=== PATIENT | male | born 1965 | race Caucasian/White ===

== ENCOUNTER 2018-09-28 20:02 | Emergency (ER) | payer MEDICARE ==
[2018-09-28] MEDS ORDERED: THIAMINE 200 MG/2 ML IV ONE (20:07)
[2018-09-28] MEDS ORDERED: THIAMINE 200 MG/2 ML ONE (20:13)
[2018-09-28] MEDS ORDERED: Sodium Chloride 0.9% 1000 ML 1,000 ML ONE (20:13)
[2018-09-28] MEDS ORDERED: Sodium Chloride 0.9% 1000 ML 1,000 ML IV SCH (20:15)
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
[2018-09-28 20:38] LABS: BASOPHIL % 0.6 % (0.0-0.4); Basophil (Absolute #) 0.03 (0-0.4); Eosinophil % 0.4 % (0.00-5.0); Eosinophil (Absolute #) 0.02 (0-0.5); Granulocyte Absolute (ANC) 2.67 (1.4-6.9); Granulocytes % 55.7 % (36.0-66.0); Hematocrit 49.4 % (42-50); Hemoglobin 16.7 gm/dl (12.5-18.0); Lymphocyte (Absolute #) 1.67 (1.0-4.6); Lymphocytes % 34.9 % (24.0-44.0); Mean Corpuscular Hemoglobin 33.8 pg (26-32); Mean Corpuscular Hgb Concent. 33.8 g/dl (32-36); Mean Platelet Volume 9.1 fl (6-9.5); Monocytes % 8.4 % (0.0-12.0); Platelet Count 159 K/mm3 (150-450); Red Blood Count 4.94 M/mm3 (4.1-5.6); Red Cell Distribution Width 15.9 % (11.5-14.0); White Blood Count 4.8 K/mm3 (4.0-10.5)
[2018-09-28 20:50] LABS: ALBUMIN 4.4 g/dL (3.5-5.0); ALKALINE PHOSPHATASE 95 U/L (38-126); AMYLASE 74 U/L (30-110); ANION GAP 16.8 MEQ/L (5-15); BLOOD UREA NITROGEN 7 mg/dL (9-20); CHLORIDE 105 mmol/L (98-107); Calcium 9.4 mg/dL (8.4-10.2); Carbon Dioxide 30 mmol/L (22-30); Creatinine 1 0.77 mg/dL (0.66-1.25); ETHYL ALCOHOL 287 mg/dL (0-10); Glucose 122 mg/dL (74-106); LIPASE 349 U/L (23-300); Potassium 3.4 mmol/L (3.5-5.1); SGOT/AST 120 U/L (17-59); SGPT/ALT 98 U/L (0-50); SODIUM 148 mmol/L (137-145); Total Protein 7.5 g/dL (6.3-8.2)
[2018-09-28 21:07] LABS: ACETAMINOPHEN < 10 ug/ml (10-30); SALICYLATE < 1.0 mg/dL (2-20)
[2018-09-28 22:39] VITALS: BP 158/96; PULSE 84; O2SAT 99
--- NOTE | 2018-09-29 08:39 | XRAY ---
Indication: Chest pain. Comparison: May 07, 2016. Portable chest demonstrates normal heart and lungs again with incidental left upper lobe calcified granuloma. Bony thorax intact again with mild degenerative changes. No new/acute findings.
== END 2018-09-28 22:44 | disposition home or self-care (01) ==
LOC: ED 20:02
DX: F10.920 Alcohol use, unspecified with intoxication, uncomplicated (principal); R07.9 Chest pain, unspecified; I10 Essential (primary) hypertension; I25.2 Old myocardial infarction; G47.30 Sleep apnea, unspecified; F51.5 Nightmare disorder; Z79.899 Other long term (current) drug therapy
CPT/HCPCS: 36415; 71045; 80053; 80307; 82150; 83690; 84484; 85025; 93005; 93041; 96360; 96374; 99284; G0480; G0481

== ENCOUNTER 2018-11-23 14:18 | Observation (INO) | payer MEDICARE ==
[2018-11-23] MEDS ORDERED: Sodium Chloride 0.9% 1000 ML 1,000 ML IV SCH (14:30)
[2018-11-23 14:54] LABS: BASOPHIL % 0.5 % (0.0-0.4); Basophil (Absolute #) 0.04 (0-0.4); Eosinophil % 0.9 % (0.00-5.0); Eosinophil (Absolute #) 0.08 (0-0.5); Granulocyte Absolute (ANC) 6.46 (1.4-6.9); Granulocytes % 74.6 % (36.0-66.0); Hematocrit 50.3 % (42-50); Hemoglobin 16.8 gm/dl (12.5-18.0); Lymphocyte (Absolute #) 1.64 (1.0-4.6); Lymphocytes % 18.9 % (24.0-44.0); Mean Cell Volume 100.4 fl (78-100); Mean Corpuscular Hemoglobin 33.5 pg (26-32); Mean Corpuscular Hgb Concent. 33.4 g/dl (32-36); Mean Platelet Volume 9.9 fl (6-9.5); Monocyte (Absolute #) 0.44 (0.0-1.3); Monocytes % 5.1 % (0.0-12.0); Platelet Count 167 K/mm3 (150-450); Red Blood Count 5.01 M/mm3 (4.1-5.6); Red Cell Distribution Width 14.5 % (11.5-14.0); White Blood Count 8.7 K/mm3 (4.0-10.5)
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
[2018-11-23 14:56] LABS: Lactic Acid 3.8 (0.4-2.0)
[2018-11-23] MEDS ORDERED: Sodium Chloride 0.9% 1000 ML 2,000 ML IV STA (15:02)
[2018-11-23 15:09] LABS: ALBUMIN 4.3 g/dL (3.5-5.0); BILIRUBIN,TOTAL 0.8 mg/dL (0.2-1.3); Calcium 9.3 mg/dL (8.4-10.2); Creatinine 1 1.33 mg/dL (0.66-1.25); MAGNESIUM 1.8 mg/dL (1.6-2.3); Total Protein 7.6 g/dL (6.3-8.2)
[2018-11-23] MEDS ORDERED: Sodium Chloride 0.9% 1000 ML 1,000 ML ONE (15:10)
[2018-11-23 15:15] LABS: Potassium 2.5 mmol/L (3.5-5.1)
[2018-11-23] MEDS: POTASSIUM CHLORIDE 20 mEq IN WATER 100ML 20 MEQ/100 ML BAG IV SCH ×2 (16:08→18:31)
[2018-11-23] MEDS: SODIUM CHLORIDE 0.9% W/ 40 mEq KCL 1000ML 1,000 ML IV SCH (17:54)
[2018-11-23] MEDS ORDERED: ANTIVERT 25 MG PO PRN (19:14)
[2018-11-23] MEDS ORDERED: Ativan 2 MG/1 ML VIAL IV PRN (19:34)
[2018-11-23] MEDS ORDERED: Phenergan 25 MG INJ IVIM PRN (19:34)
[2018-11-23] MEDS ORDERED: Nicoderm CQ 21 MG TOP SCH (20:00)
[2018-11-23] MEDS ORDERED: Ativan 2 MG/1 ML VIAL ONE (20:10)
[2018-11-23] MEDS: TYLENOL 325 MG PO PRN (20:13)
[2018-11-23] MEDS ORDERED: Haldol 5 MG IV ONE (20:48)
[2018-11-23] MEDS ORDERED: VALIUM 10 MG/2 ML SYRINGE IV PRN (20:48)
--- NOTE | 2018-11-23 20:49 | XRAY ---
Indication: Short of breath. Comparison: September 28, 2018. Portable chest again demonstrates normal heart and lungs with left upper lobe calcified granuloma. Bony thorax intact again with mild degenerative changes. No new/acute findings.
--- NOTE | 2018-11-23 20:51 | XRAY ---
Indication: Weakness, dizziness, and chest pain. Multiple contiguous axial images obtained through the head without contrast. Comparison: December 04, 2015. Again age-appropriate global atrophy, mild periventricular degenerative microvascular ischemia bilaterally, and old bifrontal lobe infarcts. No acute intracranial hemorrhage, hydrocephalus, or mass effect. Bony calvarium intact. Mild mucosal thickening of both maxillary sinuses. Remaining visualized paranasal sinuses and mastoid air cells are clear. 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 Comment: Preliminary interpretation was made by [facility]. No critical discrepancy. CTDI 50.87
[2018-11-23] MEDS: LOPID 600 MG PO SCH (21:45)
[2018-11-23] MEDS ORDERED: Keppra 250 MG PO SCH (22:00)
[2018-11-24 01:23] LABS: Appearance CLEAR (CLEAR); Bilirubin NEGATIVE (NEGATIVE); Blood NEGATIVE Ery/ul (0-5); Glucose NEGATIVE (NEGATIVE); Ketones NEGATIVE (NEGATIVE); Leukocyte Esterase NEGATIVE (NEGATIVE); Nitrite NEGATIVE (NEGATIVE); Protein,Urine Dip NEGATIVE (Negative); RBC 0-2 /HPF (0-2); Specific Gravity 1.011 (1.005-1.025); Urobilinogen NEGATIVE mg/dL (0-1)
[2018-11-24 02:12] LABS: Amphetamine,Urine NEGATIVE (NEGATIVE); Barbiturate,Urine NEGATIVE (NEGATIVE); Benzodiazepine,Urine NEGATIVE (NEGATIVE); Cocaine,Urine NEGATIVE (NEGATIVE); Methadone,Urine NEGATIVE (NEGATIVE); Opiate,Urine NEGATIVE (NEGATIVE); PCP,Urine NEGATIVE (NEGATIVE); THC,Urine NEGATIVE (NEGATIVE)
[2018-11-24] MEDS: SODIUM CHLORIDE 0.9% W/ 40 mEq KCL 1000ML 1,000 ML IV SCH (02:58)
[2018-11-24 03:02] LABS: BASOPHIL % 0.3 % (0.0-0.4); Basophil (Absolute #) 0.02 (0-0.4); Eosinophil % 1.8 % (0.00-5.0); Eosinophil (Absolute #) 0.12 (0-0.5); Granulocyte Absolute (ANC) 4.48 (1.4-6.9); Granulocytes % 65.9 % (36.0-66.0); Hematocrit 44.2 % (42-50); Hemoglobin 14.8 gm/dl (12.5-18.0); Lymphocyte (Absolute #) 1.77 (1.0-4.6); Lymphocytes % 26.1 % (24.0-44.0); Mean Cell Volume 102.1 fl (78-100); Mean Corpuscular Hemoglobin 34.2 pg (26-32); Mean Corpuscular Hgb Concent. 33.5 g/dl (32-36); Mean Platelet Volume 9.4 fl (6-9.5); Monocytes % 5.9 % (0.0-12.0); Platelet Count 128 K/mm3 (150-450); Red Blood Count 4.33 M/mm3 (4.1-5.6); Red Cell Distribution Width 14.5 % (11.5-14.0); White Blood Count 6.8 K/mm3 (4.0-10.5)
[2018-11-24 03:14] LABS: ALBUMIN 3.5 g/dL (3.5-5.0); ALKALINE PHOSPHATASE 86 U/L (38-126); ANION GAP 9.3 MEQ/L (5-15); BLOOD UREA NITROGEN 17 mg/dL (9-20); CHLORIDE 99 mmol/L (98-107); Calcium 8.3 mg/dL (8.4-10.2); Carbon Dioxide 32 mmol/L (22-30); Creatinine 1 1.06 mg/dL (0.66-1.25); Glucose 97 mg/dL (74-106); Potassium 3.5 mmol/L (3.5-5.1); SGOT/AST 32 U/L (17-59); SGPT/ALT 24 U/L (0-50); SODIUM 137 mmol/L (137-145); Total Protein 6.4 g/dL (6.3-8.2)
[2018-11-24] MEDS: TYLENOL 325 MG PO PRN (04:48)
[2018-11-24] MEDS ORDERED: ETODOLAC 300 MG PO PRN (07:40)
[2018-11-24 07:45] VITALS: BP 173/99; PULSE 72; O2SAT 95
[2018-11-24] MEDS ORDERED: MEDICATION INTERVENTION PO SCH (08:00)
[2018-11-24] MEDS: LOPID 600 MG PO SCH (09:27)
[2018-11-24] MEDS ORDERED: NON-FORMULARY ITEM (Budesonide/Formoterol Fumarate [Symbicort 160-4.5 Mcg Inhaler] 10.2 GM IH SCH (10:00)
[2018-11-24] MEDS ORDERED: FOLATE 1 MG PO SCH (10:00)
[2018-11-24] MEDS ORDERED: Protonix 40MG Tablet PO SCH (10:00)
[2018-11-24] MEDS ORDERED: THERAGRAN MULTIVITAMIN PO SCH (10:00)
[2018-11-24] MEDS ORDERED: NON-FORMULARY ITEM (Losartan Potassium [Cozaar] 100 MG) PO SCH (10:00)
[2018-11-24] MEDS ORDERED: Cozaar 50 MG PO SCH (10:00)
[2018-11-24] MEDS ORDERED: NORVASC 5 MG PO SCH (10:00)
[2018-11-24] MEDS ORDERED: hydroDIURIL 25 MG PO SCH (10:00)
[2018-11-24] MEDS ORDERED: VITAMIN B-1 100 MG PO SCH (10:00)
[2018-11-24] MEDS ORDERED: Keppra 250 MG PO SCH (10:00)
[2018-11-24] MEDS ORDERED: KEPPRA 500 MG PO SCH (10:00)
[2018-11-24] MEDS ORDERED: ROCEPHIN 1 Gm-D5w 50 ml Bag** 1 G/50 ML IVPB IV SCH (10:00)
== END 2018-11-24 10:33 | disposition home or self-care (01) ==
LOC: ED 14:18 → MED SURG 16:27 → OBSVTOIN 16:27 → INTOOBSV 16:27 → ICU 21:45
PROVIDERS: ADMIT General Practice; ATTEND General Practice
DX: R55 Syncope and collapse (principal); E87.6 Hypokalemia; R53.1 Weakness; R42 Dizziness and giddiness; N17.9 Acute kidney failure, unspecified; M25.511 Pain in right shoulder; R06.02 Shortness of breath; R07.9 Chest pain, unspecified; R56.9 Unspecified convulsions; S01.01XA Laceration without foreign body of scalp, initial encounter; Z79.899 Other long term (current) drug therapy; F17.200 Nicotine dependence, unspecified, uncomplicated; W19.XXXA Unspecified fall, initial encounter; Y93.89 Activity, other specified; Y92.238 Other place in hospital as the place of occurrence of the external cause
CPT/HCPCS: 12001; 36415; 70450; 80053; 80307; 81001; 82962; 83036; 83605; 83735; 84132; 84134; 84484; 85025; 93005; 93268; 96360; 96365; 99291; G0378; 36000; 71045; 99285; J1630; J2060; J3480; A9270-GY

== ENCOUNTER 2019-02-06 02:13 | Emergency (ER) | payer MEDICARE ==
[2019-02-06] MEDS ORDERED: Sodium Chloride 0.9% 1000 ML 1,000 ML ONE (02:48)
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
[2019-02-06] MEDS ORDERED: Sodium Chloride 0.9% 1000 ML 1,000 ML IV STA (02:54)
[2019-02-06] MEDS ORDERED: Zofran 4 MG/2 ML VIAL IV ONE (02:54)
[2019-02-06 03:00] LABS: BASOPHIL % 0.3 % (0.0-0.4); Basophil (Absolute #) 0.02 (0-0.4); Eosinophil % 1.2 % (0.00-5.0); Eosinophil (Absolute #) 0.08 (0-0.5); Granulocyte Absolute (ANC) 3.18 (1.4-6.9); Granulocytes % 47.4 % (36.0-66.0); Hematocrit 49.5 % (42-50); Hemoglobin 16.3 gm/dl (12.5-18.0); Lymphocyte (Absolute #) 3.02 (1.0-4.6); Mean Cell Volume 105.8 fl (78-100); Mean Corpuscular Hemoglobin 34.8 pg (26-32); Mean Corpuscular Hgb Concent. 32.9 g/dl (32-36); Mean Platelet Volume 9.2 fl (6-9.5); Monocyte (Absolute #) 0.41 (0.0-1.3); Monocytes % 6.1 % (0.0-12.0); Platelet Count 206 K/mm3 (150-450); Red Blood Count 4.68 M/mm3 (4.1-5.6); White Blood Count 6.7 K/mm3 (4.0-10.5)
[2019-02-06 03:16] LABS: Appearance CLEAR (CLEAR); Bilirubin NEGATIVE (NEGATIVE); Blood SMALL Ery/ul (0-5); Glucose NEGATIVE (NEGATIVE); Ketones NEGATIVE (NEGATIVE); Leukocyte Esterase NEGATIVE (NEGATIVE); Mucus SLIGHT /HPF (NEGATIVE); Nitrite NEGATIVE (NEGATIVE); Protein,Urine Dip 30 (Negative); Specific Gravity 1.008 (1.005-1.025); Urobilinogen NEGATIVE mg/dL (0-1)
[2019-02-06 03:20] LABS: ALBUMIN 4.4 g/dL (3.5-5.0); ALKALINE PHOSPHATASE 110 U/L (38-126); ANION GAP 16.6 MEQ/L (5-15); BLOOD UREA NITROGEN 11 mg/dL (9-20); CHLORIDE 113 mmol/L (98-107); Calcium 8.8 mg/dL (8.4-10.2); Carbon Dioxide 26 mmol/L (22-30); Creatinine 1 1.07 mg/dL (0.66-1.25); Glucose 89 mg/dL (74-106); Potassium 3.6 mmol/L (3.5-5.1); SGOT/AST 66 U/L (17-59); SGPT/ALT 42 U/L (0-50)
[2019-02-06] MEDS ORDERED: Zofran 4 MG/2 ML VIAL ONE (03:21)
[2019-02-06 03:29] LABS: ACETAMINOPHEN < 10 ug/ml (10-30); ETHYL ALCOHOL 451 mg/dL (0-10); SALICYLATE < 1.0 mg/dL (2-20); SODIUM 152 mmol/L (137-145)
[2019-02-06 03:31] LABS: Amphetamine,Urine NEGATIVE (NEGATIVE); Barbiturate,Urine NEGATIVE (NEGATIVE); Benzodiazepine,Urine NEGATIVE (NEGATIVE); Cocaine,Urine NEGATIVE (NEGATIVE); Methadone,Urine NEGATIVE (NEGATIVE); Opiate,Urine NEGATIVE (NEGATIVE); PCP,Urine NEGATIVE (NEGATIVE); THC,Urine NEGATIVE (NEGATIVE)
[2019-02-06] MEDS ORDERED: DEXTROSE 5% IV ONE (04:00)
[2019-02-06] MEDS ORDERED: [UNRECOGNIZED DRUG - OTHER] IV ONE (04:00)
[2019-02-06] MEDS ORDERED: Dextrose 5%-1/2NS IV Soln. 500 ML 500 ML IV SCH (04:00)
[2019-02-06] MEDS ORDERED: Dextrose 5%-1/2NS IV Soln. 500 ML 500 ML IV ONE (04:02)
[2019-02-06 06:00] VITALS: BP 113/74
[2019-02-06 06:54] VITALS: PULSE 85; O2SAT 94
--- NOTE | 2019-02-06 08:44 | XRAY ---
Indication: Head injury following fall. Patient intoxicated. Multiple contiguous axial images obtained through the head without contrast. Comparison: November 23, 2018. Several images slightly degraded by motion artifact. Grossly stable global atrophy, mild periventricular degenerative micro-ischemia, and old bifrontal lobe infarcts. Again no acute intracranial hemorrhage, abnormal extra-axial fluid collection, or mass effect. Fourth ventricle is midline without hydrocephalus. Bony calvarium is intact. Mild mucosal thickening of the left maxillary sinus and lesser degree right. Mastoid air cells are clear. Impression: Mild motion artifact. 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 Incidental paranasal sinus disease. Comment: Preliminary interpretation was made by [facility]. No critical discrepancy. CT DI 59.64
--- NOTE | 2019-02-06 08:48 | XRAY ---
Indication: Head injury following fall. Patient intoxicated. Multiple contiguous axial images obtained through the cervical spine. Sagittal and coronal reformatted images obtained. Comparison: None. Axial images negative for acute fracture, suspicious bony lesions, or spinal canal stenosis. There is mild/moderate C3-C7 degenerative endplate spurring with C5 subcortical cyst. Also mild multilevel bilateral degenerative facet hypertrophy, left greater than right. Sagittal and coronal reformatted images demonstrates patient's neck side bent to the left. Normal cervical lordosis with C3-C7 disc space narrowing. No acute compression fracture, subluxation, or jumped facet. Visualized noncontrasted soft tissues demonstrates mild scattered carotid calcifications bilaterally. Impression: 1. Negative for acute fracture/subluxation. 2. Multilevel degenerative changes. Comment: Preliminary interpretation was made by [facility]. No critical discrepancy. CT DI 22.40
== END 2019-02-06 06:52 | disposition home or self-care (01) ==
LOC: ED 02:13
DX: F10.129 Alcohol abuse with intoxication, unspecified (principal); Z79.899 Other long term (current) drug therapy; Z79.891 Long term (current) use of opiate analgesic
CPT/HCPCS: 36000; 36415; 70450; 72125; 80053; 80307; 81001; 82962; 85025; 87086; 93005; 96360; 96361; 96374; 99285; G0480; G0481; J2405

== ENCOUNTER 2019-04-15 14:35 | Emergency (ER) | payer MEDICARE ==
[2019-04-15] MEDS ORDERED: solu-MEDROL 125 MG IV ONE (14:43)
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
[2019-04-15] MEDS ORDERED: Pepcid 20 MG VIAL IV ONE ×2 (14:45→15:08)
[2019-04-15] MEDS ORDERED: solu-MEDROL 125 MG ONE (15:08)
[2019-04-15 15:16] LABS: Absolute Neutrophil Ct (ANC) 2.43 (1.4-6.9); BASOPHIL % 0.2 % (0.0-0.4); Basophil (Absolute #) 0.01 (0-0.4); Eosinophil % 0.7 % (0.00-5.0); Eosinophil (Absolute #) 0.03 (0-0.5); Hematocrit 50.3 % (42-50); Hemoglobin 17.1 gm/dl (12.5-18.0); Lymphocyte (Absolute #) 1.22 (1.0-4.6); Lymphocytes % 30.1 % (24.0-44.0); Mean Cell Volume 103.3 fl (78-100); Mean Corpuscular Hemoglobin 35.1 pg (26-32); Mean Platelet Volume 10.5 fl (6-9.5); Monocyte (Absolute #) 0.36 (0.0-1.3); Monocytes % 8.9 % (0.0-12.0); Neutrophil % 60.1 % (36.0-66.0); Platelet Count 74 K/mm3 (150-450); Red Blood Count 4.87 M/mm3 (4.1-5.6); Red Cell Distribution Width 15.4 % (11.5-14.0); White Blood Count 4.1 K/mm3 (4.0-10.5)
--- NOTE | 2019-04-15 15:16 | XRAY ---
Indication: Short of breath. Comparison: November 23, 2018. Portable chest again demonstrates normal heart and lungs with left upper lobe calcified granuloma. Bony thorax intact again with mild degenerative changes. No new/acute findings.
[2019-04-15 15:37] LABS: ALBUMIN 4.6 g/dL (3.5-5.0); ALKALINE PHOSPHATASE 85 U/L (38-126); ANION GAP 15.3 MEQ/L (5-15); BLOOD UREA NITROGEN 10 mg/dL (9-20); CHLORIDE 100 mmol/L (98-107); Calcium 9.9 mg/dL (8.4-10.2); Carbon Dioxide 31 mmol/L (22-30); Creatinine 1 0.86 mg/dL (0.66-1.25); Glucose 113 mg/dL (74-106); MAGNESIUM 1.4 mg/dL (1.6-2.3); NT PRO BNP 37.3 pg/mL (0-900); Potassium 3.4 mmol/L (3.5-5.1); SGOT/AST 183 U/L (17-59); SGPT/ALT 122 U/L (0-50); SODIUM 143 mmol/L (137-145); Total Protein 8.1 g/dL (6.3-8.2)
[2019-04-15 16:28] VITALS: O2SAT 98
[2019-04-15 16:58] VITALS: BP 177/95; PULSE 84
[2019-04-15 17:52] LABS: Slide Review 1 YES
== END 2019-04-15 17:27 | disposition home or self-care (01) ==
LOC: ED 14:35
DX: R06.02 Shortness of breath (principal); F10.20 Alcohol dependence, uncomplicated; D69.6 Thrombocytopenia, unspecified
CPT/HCPCS: 36000; 36415; 71045; 80053; 83735; 83880; 84484; 85025; 93005; 93041; 94760; 96374; 96375; 99284; J2930

== ENCOUNTER 2019-09-08 22:40 | Emergency (ER) | payer MEDICARE ==
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
[2019-09-08 23:23] LABS: Absolute Neutrophil Ct (ANC) 1.93 (1.4-6.9); BASOPHIL % 0.4 % (0.0-0.4); Basophil (Absolute #) 0.02 (0-0.4); Eosinophil % 0.9 % (0.00-5.0); Eosinophil (Absolute #) 0.04 (0-0.5); Hematocrit 45.4 % (42-50); Hemoglobin 15.5 gm/dl (12.5-18.0); Lymphocyte (Absolute #) 2.07 (1.0-4.6); Lymphocytes % 46.5 % (24.0-44.0); Mean Cell Volume 104.8 fl (78-100); Mean Corpuscular Hemoglobin 35.8 pg (26-32); Mean Corpuscular Hgb Concent. 34.1 g/dl (32-36); Mean Platelet Volume 9.7 fl (7.5-11.0); Monocyte (Absolute #) 0.39 (0.0-1.3); Monocytes % 8.8 % (0.0-12.0); Neutrophil % 43.4 % (36.0-66.0); Platelet Count 202 K/mm3 (150-450); Red Blood Count 4.33 M/mm3 (4.1-5.6); Red Cell Distribution Width 14.8 % (11.5-14.0); White Blood Count 4.5 K/mm3 (4.0-10.5)
[2019-09-08 23:36] LABS: ALKALINE PHOSPHATASE 104 U/L (38-126); AMYLASE 60 U/L (30-110); ANION GAP 16.6 MEQ/L (5-15); BLOOD UREA NITROGEN 11 mg/dL (9-20); CHLORIDE 107 mmol/L (98-107); Calcium 8.6 mg/dL (8.4-10.2); Carbon Dioxide 27 mmol/L (22-30); Creatinine 1 0.94 mg/dL (0.66-1.25); Glucose 103 mg/dL (74-106); LIPASE 330 U/L (23-300); MAGNESIUM 1.5 mg/dL (1.6-2.3); Potassium 3.1 mmol/L (3.5-5.1); SGOT/AST 100 U/L (17-59); SGPT/ALT 81 U/L (0-50); SODIUM 147 mmol/L (137-145); Total Protein 7.2 g/dL (6.3-8.2)
[2019-09-08] MEDS ORDERED: Sodium Chloride 0.9% 1000 ML 1,000 ML IV STA (23:57)
[2019-09-08] MEDS ORDERED: Sodium Chloride 0.9% 1000 ML 1,000 ML ONE (23:59)
[2019-09-09] MEDS ORDERED: Magnesium 1 Gm / 100 Ml D5W*** 100 ML IV ONE ×2 (00:03→00:09)
[2019-09-09] MEDS ORDERED: POTASSIUM CHLORIDE 20 mEq IN WATER 100ML 20 MEQ/100 ML BAG IV ONE (00:03)
[2019-09-09] MEDS ORDERED: POTASSIUM CHLORIDE 20 mEq IN WATER 100ML 100 ML IV ONE (00:09)
[2019-09-09 03:20] LABS: ANION GAP 16.6 MEQ/L (5-15); BLOOD UREA NITROGEN 11 mg/dL (9-20); CHLORIDE 108 mmol/L (98-107); Calcium 8.9 mg/dL (8.4-10.2); Carbon Dioxide 26 mmol/L (22-30); Creatinine 1 0.94 mg/dL (0.66-1.25); Glucose 107 mg/dL (74-106); MAGNESIUM 1.8 mg/dL (1.6-2.3); Potassium 3.5 mmol/L (3.5-5.1); SODIUM 147 mmol/L (137-145)
[2019-09-09 03:22] VITALS: BP 176/103; PULSE 115; O2SAT 95
== END 2019-09-09 03:20 | disposition home or self-care (01) ==
LOC: ED 22:40
DX: F10.129 Alcohol abuse with intoxication, unspecified (principal); E87.6 Hypokalemia; E83.42 Hypomagnesemia; E78.41 Elevated Lipoprotein(a); Z72.0 Tobacco use; I10 Essential (primary) hypertension; J45.909 Unspecified asthma, uncomplicated; G47.30 Sleep apnea, unspecified; K21.9 Gastro-esophageal reflux disease without esophagitis; Z79.899 Other long term (current) drug therapy
CPT/HCPCS: 36000; 36415; 80048; 80053; 82150; 83690; 83735; 85025; 96360; 96365; 96366; 96368; 99284; G0480; 80307; J3475; J3480

== ENCOUNTER 2019-10-26 21:24 | Emergency (ER) | payer MEDICARE ==
[2019-10-26 22:12] LABS: Absolute Neutrophil Ct (ANC) 5.83 (1.4-6.9); BASOPHIL % 0.9 % (0.0-0.4); Basophil (Absolute #) 0.08 (0-0.4); Eosinophil % 0.9 % (0.00-5.0); Eosinophil (Absolute #) 0.08 (0-0.5); Hematocrit 48.9 % (42-50); Hemoglobin 16.5 gm/dl (12.5-18.0); Lymphocyte (Absolute #) 2.15 (1.0-4.6); Lymphocytes % 24.8 % (24.0-44.0); Mean Cell Volume 104.7 fl (78-100); Mean Corpuscular Hemoglobin 35.3 pg (26-32); Mean Corpuscular Hgb Concent. 33.7 g/dl (32-36); Mean Platelet Volume 10.3 fl (7.5-11.0); Monocyte (Absolute #) 0.54 (0.0-1.3); Monocytes % 6.2 % (0.0-12.0); Neutrophil % 67.2 % (36.0-66.0); Platelet Count 231 K/mm3 (150-450); Red Blood Count 4.67 M/mm3 (4.1-5.6); Red Cell Distribution Width 15.8 % (11.5-14.0); White Blood Count 8.7 K/mm3 (4.0-10.5)
[2019-10-26 22:21] LABS: ALBUMIN 4.8 g/dL (3.5-5.0); ANION GAP 20.1 MEQ/L (5-15); BILIRUBIN,TOTAL 0.5 mg/dL (0.2-1.3); Calcium 9.6 mg/dL (8.4-10.2); Creatinine 1 1.38 mg/dL (0.66-1.25); Total Protein 8.5 g/dL (6.3-8.2)
[2019-10-26 22:25] LABS: Potassium 2.8 mmol/L (3.5-5.1)
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
[2019-10-26] MEDS ORDERED: K-LYTE 25 MEQ PO ONE (22:34)
[2019-10-26] MEDS ORDERED: Sodium Chloride 0.9% 1000 ML 1,000 ML IV STA (22:35)
[2019-10-26] MEDS ORDERED: Sodium Chloride 0.9% 1000 ML 1,000 ML ONE (22:43)
[2019-10-26] MEDS ORDERED: K-LYTE 25 MEQ ONE (22:43)
[2019-10-26] MEDS ORDERED: POTASSIUM CHLORIDE 20 mEq IN WATER 100ML 100 ML IV ONE (22:44)
[2019-10-26] MEDS: POTASSIUM CHLORIDE 20 mEq IN WATER 100ML 20 MEQ/100 ML BAG IV SCH (22:48)
[2019-10-27] MEDS: POTASSIUM CHLORIDE 20 mEq IN WATER 100ML 20 MEQ/100 ML BAG IV SCH (00:58)
[2019-10-27] MEDS ORDERED: POTASSIUM CHLORIDE 20 mEq IN WATER 100ML 100 ML IV ONE (00:58)
[2019-10-27 02:55] VITALS: BP 139/86; PULSE 85; O2SAT 93
== END 2019-10-27 02:55 | disposition home or self-care (01) ==
LOC: ED 21:24
DX: E87.6 Hypokalemia (principal); N17.9 Acute kidney failure, unspecified; F10.929 Alcohol use, unspecified with intoxication, unspecified; Z02.89 Encounter for other administrative examinations; I10 Essential (primary) hypertension; Z79.899 Other long term (current) drug therapy; I25.2 Old myocardial infarction; Z72.0 Tobacco use
CPT/HCPCS: 80053; 83735; 85025; 96360; 96365; 96366; 99291; G0480; 36415; 80307; 99284; J3480; A9270-GY

== ENCOUNTER 2021-03-09 20:46 | Emergency (ER) | payer MEDICARE ==
[2021-03-09] MEDS ORDERED: Ativan 2 MG/1 ML VIAL IV ONE (20:50)
[2021-03-09] MEDS ORDERED: Sodium Chloride 0.9% 1000 ML 1,000 ML IV SCH (21:00)
[2021-03-09 21:16] LABS: Absolute Neutrophil Ct (ANC) 6.17 (1.4-6.9); BASOPHIL % 0.2 % (0.0-0.4); Basophil (Absolute #) 0.02 (0-0.4); Eosinophil % 0.1 % (0.00-5.0); Eosinophil (Absolute #) 0.01 (0-0.5); Hematocrit 55.1 % (42-50); Lymphocyte (Absolute #) 1.19 (1.0-4.6); Lymphocytes % 14.8 % (24.0-44.0); Mean Cell Volume 100.5 fl (78-100); Mean Corpuscular Hemoglobin 32.8 pg (26-32); Mean Corpuscular Hgb Concent. 32.7 g/dl (32-36); Mean Platelet Volume 9.5 fl (7.5-11.0); Monocyte (Absolute #) 0.64 (0.0-1.3); Neutrophil % 76.9 % (36.0-66.0); Platelet Count 164 K/mm3 (150-450); Red Blood Count 5.48 M/mm3 (4.1-5.6); Red Cell Distribution Width 14.8 % (11.5-14.0)
[2021-03-09 21:19] VITALS: BP 196/100; PULSE 96; O2SAT 98
[2021-03-09 21:29] LABS: ACETAMINOPHEN < 10 ug/ml (10-30); ALBUMIN 4.2 g/dL (3.5-5.0); ALKALINE PHOSPHATASE 114 U/L (38-126); ANION GAP 21.3 MEQ/L (5-15); BLOOD UREA NITROGEN 9 mg/dL (9-20); CHLORIDE 102 mmol/L (98-107); Calcium 8.4 mg/dL (8.4-10.2); Carbon Dioxide 19 mmol/L (22-30); Creatinine 1 0.92 mg/dL (0.66-1.25); EST GLOMERULAR FILTRATION RATE > 60.0 ML/MIN; ETHYL ALCOHOL < 10 mg/dL (0-10); Glucose 106 mg/dL (74-106); LIPASE 77 U/L (23-300); Potassium 3.2 mmol/L (3.5-5.1); SALICYLATE < 1.0 mg/dL (2-20); SGOT/AST 38 U/L (17-59); SODIUM 139 mmol/L (137-145); Total Protein 7.1 g/dL (6.3-8.2)
[2021-03-09] MEDS ORDERED: Sodium Chloride 0.9% 1000 ML 1,000 ML ONE (21:44)
[2021-03-09 21:51] LABS: SGPT/ALT 33 U/L (0-50)
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
[2021-03-09] MEDS ORDERED: Klor Con 10 MEQ PO ONE ×2 (21:59→22:01)
--- NOTE | 2021-03-10 08:44 | XRAY ---
Indication: Acute mental status change. History seizures. No known injury. Multiple contiguous axial images obtained through the head without contrast. Comparison: February 06, 2019. There remains age-appropriate global atrophy, mild periventricular degenerative micro-ischemia bilaterally, and small old bilateral frontal lobe infarcts. No acute intracranial hemorrhage, hydrocephalus, or mass effect. Fourth ventricle is midline. Bony calvarium intact. Visualized paranasal sinuses and mastoid air cells are clear. 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
== END 2021-03-09 22:04 | disposition left against medical advice (07) ==
LOC: ED 20:46
DX: R56.9 Unspecified convulsions (principal); E87.6 Hypokalemia; Z79.899 Other long term (current) drug therapy; I10 Essential (primary) hypertension; I25.2 Old myocardial infarction
CPT/HCPCS: 36000; 36415; 70450; 80053; 80307; 83690; 84484; 85025; 99284; G0480; A9270-GY

== ENCOUNTER 2021-04-09 17:46 | Emergency (ER) | payer MEDICARE ==
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
== END 2021-04-09 18:45 | disposition home or self-care (01) ==
LOC: ED 17:46
DX: R07.9 Chest pain, unspecified (principal); K92.0 Hematemesis; F10.10 Alcohol abuse, uncomplicated
CPT/HCPCS: 99283

== ENCOUNTER 2021-07-12 17:49 | Emergency (ER) | payer MEDICARE ==
[2021-07-12 18:02] VITALS: BP 143/102; PULSE 131; O2SAT 93
== END 2021-07-12 18:03 | disposition left against medical advice (07) ==
LOC: ED 17:49
DX: Z53.9 Procedure and treatment not carried out, unspecified reason (principal)
CPT/HCPCS: 99283; G0463

== ENCOUNTER 2021-10-10 14:02 | Emergency (ER) | payer MEDICARE ==
[2021-10-10 14:12] VITALS: BP 157/112; PULSE 123
[2021-10-10 14:13] VITALS: O2SAT 96
[2021-10-10] MEDS ORDERED: Sodium Chloride 0.9% 1000 ML 1,000 ML IV SCH (14:15)
[2021-10-10] MEDS ORDERED: Sodium Chloride 0.9% 1000 ML 1,000 ML ONE (14:27)
[2021-10-10 14:33] LABS: Absolute Neutrophil Ct (ANC) 8.18 (1.4-6.9); Basophil (Absolute #) 0.02 (0-0.4); Eosinophil % 0.1 % (0.00-5.0); Eosinophil (Absolute #) 0.01 (0-0.5); Hematocrit 49.3 % (42-50); Hemoglobin 16.5 gm/dl (12.5-18.0); Lymphocyte (Absolute #) 1.76 (1.0-4.6); Lymphocytes % 16.4 % (24.0-44.0); Mean Cell Volume 103.1 fl (78-100); Mean Corpuscular Hemoglobin 34.5 pg (26-32); Mean Corpuscular Hgb Concent. 33.5 g/dl (32-36); Mean Platelet Volume 10.2 fl (7.5-11.0); Monocyte (Absolute #) 0.78 (0.0-1.3); Monocytes % 7.3 % (0.0-12.0); Platelet Count 133 K/mm3 (150-450); Red Blood Count 4.78 M/mm3 (4.1-5.6); Red Cell Distribution Width 15.7 % (11.5-14.0); White Blood Count 10.8 K/mm3 (4.0-10.5)
[2021-10-10 14:40] LABS: ANION GAP 15.4 MEQ/L (5-15); BILIRUBIN,TOTAL 1.2 mg/dL (0.2-1.3); Calcium 8.5 mg/dL (8.4-10.2); Creatinine 1 1.33 mg/dL (0.66-1.25); EST GLOMERULAR FILTRATION RATE 59.1 ML/MIN; MAGNESIUM 1.6 mg/dL (1.6-2.3)
[2021-10-10 14:57] LABS: Potassium 2.9 mmol/L (3.5-5.1)
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
--- NOTE | 2021-10-10 15:41 | XRAY ---
Exam: CT of the head without IV contrast from 10/10/2021. Comparison: CT of the head without IV contrast from 03/09/2021. Indication: 56-year-old male with seizure/history of seizures. Technique: Non-IV contrast axial images were obtained through the brain. Reconstructed coronal and sagittal images were created and reviewed. Findings: The lateral and third ventricles appear of unremarkable size. The fourth ventricle is midline and is not enlarged. No focal mass effect or midline shift is seen. I see no acute intracranial bleed or abnormal extra-axial fluid collection. Moderate bilateral periventricular and subcortical white matter changes are seen, likely due to chronic small vessel ischemic disease. This is unchanged. I also note chronic bifrontal infarcts, right larger than left, representing no change. A new low attenuation infarct is not seen. There is mild prominence of the cortical sulci. The calvarium of the skull appears intact. I note new marked peripheral mucoperiosteal thickening within the left maxillary sinus. I cannot exclude a small air-fluid level within the upper posterior aspect of the left maxillary sinus. In addition, there is minimal mucosal thickening at the inferior margin of the right maxillary sinus. There is minimal concave impression of the medial wall of the left orbit on axial image #26, but this is unchanged. The mastoid air cells are well aerated and reveal no effusion. The middle ear cavities appear unremarkable. Impression: 1. Moderate bilateral periventricular and subcortical white matter changes are seen consistent with chronic small vessel ischemic disease, no significant change from 03/09/2021. 2. 2 focal areas of encephalomalacia are seen within the frontal lobes, larger on the right than left. These are stable and suggestive of old bifrontal infarcts. A definite new infarct is not seen. 3. No acute intracranial bleed or other acute intracranial process is seen. 4. Left maxillary sinus disease/sinusitis, as described above, representing a worsening as compared to 03/09/2021. I also note minimal mucosal thickening within the inferior margin of the right maxillary sinus.
== END 2021-10-10 15:13 | disposition left against medical advice (07) ==
LOC: ED 14:02
DX: R56.9 Unspecified convulsions (principal); E87.6 Hypokalemia; R94.31 Abnormal electrocardiogram [ECG] [EKG]; R94.4 Abnormal results of kidney function studies; I10 Essential (primary) hypertension; Z72.0 Tobacco use; Z79.899 Other long term (current) drug therapy
CPT/HCPCS: 36000; 36415; 70450; 80053; 83735; 84484; 85025; 93005; 93041; 94760; 99284

== ENCOUNTER 2022-01-12 08:47 | Emergency (ER) | payer MEDICARE ==
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
[2022-01-12] MEDS ORDERED: Sodium Chloride 0.9% 1000 ML 1,000 ML IV STA ×2 (09:04→10:55)
[2022-01-12] MEDS ORDERED: PROTONIX 40 MG IV IV ONE ×2 (09:04→09:27)
[2022-01-12] MEDS ORDERED: Zofran 4 MG/2 ML VIAL IV ONE (09:04)
[2022-01-12] MEDS ORDERED: Keppra 500 MG/5 ML*** 500 MG in D5w 100ML Mini Bag 100 ML 100 ML IV ONE (09:04)
[2022-01-12] MEDS ORDERED: Zofran 4 MG/2 ML VIAL ONE (09:26)
[2022-01-12] MEDS ORDERED: Sodium Chloride 0.9% 1000 ML 1,000 ML ONE ×2 (09:27→11:10)
--- NOTE | 2022-01-12 09:44 | XRAY ---
Indication: Found unconscious. Headache. History seizure. Multiple contiguous axial images obtained through the head without contrast. Comparison: October 10, 2021 Several images slightly degraded by motion artifact. Grossly stable global atrophy, moderate periventricular degenerative micro-ischemia bilaterally, and old bifrontal lobe infarcts. Left mid periventricular white matter demonstrates new 1.1 cm remote infarct. No gross acute intracranial hemorrhage, hydrocephalus, or mass effect. Bony calvarium grossly intact. Visualized paranasal sinuses and mastoid air cells are clear. Impression: 1. Motion artifact. No gross acute intracranial abnormalities. 2. New left mid periventricular 1.1 cm remote infarct. 3. Grossly stable atrophy, degenerative micro-ischemia, and old bifrontal lobe infarcts.
[2022-01-12 09:52] LABS: Absolute Neutrophil Ct (ANC) 15.75 x10^3/uL (1.4-6.9); Basophil (Absolute #) 0.06 x10^3/uL (0-0.4); Eosinophil (Absolute #) 0 x10^3/uL (0-0.5); Hematocrit 56.7 % (42-50); Hemoglobin 19.7 g/dL (12.5-18.0); Lymphocyte (Absolute #) 1.36 x10^3/uL (1.0-4.6); Lymphocytes % 7.7 % (24.0-44.0); Mean Cell Volume 97.8 fL (78-100); Mean Corpuscular Hgb Concent. 34.7 g/dL (32-36); Mean Platelet Volume 9.9 fL (7.5-11.0); Monocyte (Absolute #) 0.53 x10^3/uL (0.0-1.3); Neutrophil % 88.6 % (36.0-66.0); Platelet Count 307 x10^3/uL (150-450); Red Cell Distribution Width 14.4 % (11.5-14.0); White Blood Count 17.8 x10^3/uL (4.0-10.5)
--- NOTE | 2022-01-12 09:52 | XRAY ---
Indication: Found unconscious. Right posterior abdominal pain. History seizure. Multiple contiguous axial images obtained through the abdomen and pelvis without contrast. Comparison: July 12, 2015 Study is mildly degraded by respiration artifact throughout. Lung bases grossly clear. Heart is not enlarged. New small hiatal hernia. Stomach is mildly distended with fluid presumed from recent ingestion. Noncontrasted stomach and bowel loops appear nonobstructed again with normal appendix. There remains scattered descending and sigmoid diverticulosis. Majority of sigmoid colon now demonstrates circumferential wall thickening with minimal stranding favoring diverticulitis. No free fluid/air. Gallbladder remains moderately distended without gallstones. Liver remains enlarged measuring 22 cm. Remaining liver, gallbladder, pancreas, spleen, adrenal glands, kidneys, ureters, and bladder are unremarkable for noncontrast exam. Again mild scattered aortoiliac calcifications without AAA. Osseous structures intact again with mild/moderate degenerative changes throughout the thoracolumbar spine and both hips. Impression: 1. Respiration artifact. 2. Again scattered colonic diverticulosis. New mild sigmoid diverticulitis without complications. 3. New small hiatal hernia. 4. Again distended gallbladder better evaluated with sonogram if clinically warranted. 5. Chronic findings including hepatomegaly, arteriosclerotic disease, and chronic bony findings.
[2022-01-12 10:02] LABS: ACETAMINOPHEN < 10 ug/ml (10-30); ETHYL ALCOHOL < 10 mg/dL (0-10); SALICYLATE < 1.0 mg/dL (2-20)
[2022-01-12 10:03] LABS: ALBUMIN 4.7 g/dL (3.5-5.0); ALKALINE PHOSPHATASE 131 U/L (38-126); AMYLASE 49 U/L (30-110); ANION GAP 28.7 MEQ/L (5-15); BLOOD UREA NITROGEN 8 mg/dL (9-20); CHLORIDE 93 mmol/L (98-107); Calcium 10.2 mg/dL (8.4-10.2); Carbon Dioxide 18 mmol/L (22-30); EST GLOMERULAR FILTRATION RATE > 60.0 ML/MIN; Glucose 205 mg/dL (74-106); LIPASE 126 U/L (23-300); SGOT/AST 56 U/L (17-59); SODIUM 136 mmol/L (137-145); Total Protein 7.9 g/dL (6.3-8.2)
[2022-01-12 10:06] LABS: Potassium 2.9 mmol/L (3.5-5.1)
[2022-01-12] MEDS ORDERED: Flagyl 500 MG PO ONE (10:08)
[2022-01-12] MEDS ORDERED: Levofloxacin 500 MG Tablet PO ONE (10:08)
[2022-01-12 10:09] LABS: SGPT/ALT 50 U/L (0-50)
[2022-01-12] MEDS ORDERED: Levofloxacin 500 MG Tablet ONE (10:24)
[2022-01-12] MEDS ORDERED: Klor Con PO ONE (10:25)
[2022-01-12] MEDS ORDERED: Flagyl 500 MG ONE (10:25)
[2022-01-12] MEDS: Klor Con PO ONE ×2 (10:25→10:26)
[2022-01-12 10:27] LABS: Appearance CLEAR (CLEAR); Bilirubin NEGATIVE (NEGATIVE); Glucose NEGATIVE (NEGATIVE); Ketones NEGATIVE (NEGATIVE); Mucus SLIGHT /HPF (NEGATIVE); Nitrite NEGATIVE (NEGATIVE); Ph 6.5 (5-6); Protein,Urine Dip >=300 (Negative); RBC 0-2 /HPF (0-2); RBC MODERATE Ery/ul (0-5); Specific Gravity >=1.030 (1.005-1.025); Urobilinogen 0.2 mg/dL (0-1)
[2022-01-12 10:27] LABS: INFLUENZA A NEGATIVE (NEGATIVE); INFLUENZA B NEGATIVE (NEGATIVE); RESPIRATORY SYNCTIAL VIRUS NEGATIVE (Negative); SARS-CoV-2 Xpert Express NEGATIVE (NEGATIVE)
[2022-01-12 10:28] LABS: Dipstick done @ ? MAIN LAB; Urine Cultured Indicated? YES
[2022-01-12] MEDS ORDERED: Ativan 2 MG/1 ML VIAL IV ONE (10:55)
[2022-01-12 11:09] VITALS: BP 187/124; PULSE 116; O2SAT 97
[2022-01-12] MEDS ORDERED: Ativan 2 MG/1 ML VIAL ONE (11:10)
[2022-01-12] MEDS ORDERED: Hydromorphone 1 mg/ml Injection IV ONE (11:36)
[2022-01-12] MEDS ORDERED: Hydromorphone 1 mg/ml Injection ONE (11:48)
[2022-01-12 12:37] LABS: Amphetamine,Urine NEGATIVE (NEGATIVE); Barbiturate,Urine NEGATIVE (NEGATIVE); Benzodiazepine,Urine NEGATIVE (NEGATIVE); Methadone,Urine NEGATIVE (NEGATIVE); Opiate,Urine NEGATIVE (NEGATIVE); PCP,Urine NEGATIVE (NEGATIVE); THC,Urine NEGATIVE (NEGATIVE)
== END 2022-01-12 12:50 | disposition left against medical advice (07) ==
LOC: ED 08:47
DX: K57.32 Diverticulitis of large intestine without perforation or abscess without bleeding (principal); G40.909 Epilepsy, unspecified, not intractable, without status epilepticus; E87.6 Hypokalemia; R10.9 Unspecified abdominal pain; I10 Essential (primary) hypertension; Z72.0 Tobacco use; Z79.899 Other long term (current) drug therapy; Z20.828 Contact with and (suspected) exposure to other viral communicable diseases
CPT/HCPCS: 0241U; 36000; 36415; 70450; 74176; 80053; 80307; 81015; 82150; 83690; 84146; 84484; 85025; 87086; 93005; 93041; 96365; 96374; 96375; 99285; G0480; J1170; J1953; J2060; J2405; A9270-GY

== ENCOUNTER 2022-02-14 12:13 | Emergency (ER) | payer MEDICARE, OTHER ==
[2022-02-14 12:44] LABS: Absolute Neutrophil Ct (ANC) 2.82 x10^3/uL (1.4-6.9); Basophil (Absolute #) 0.07 x10^3/uL (0-0.4); Eosinophil % 1.4 % (0.00-5.0); Eosinophil (Absolute #) 0.07 x10^3/uL (0-0.5); Hematocrit 51.6 % (42-50); Hemoglobin 16.7 g/dL (12.5-18.0); Lymphocyte (Absolute #) 1.59 x10^3/uL (1.0-4.6); Lymphocytes % 31.8 % (24.0-44.0); Mean Cell Volume 105.7 fL (78-100); Mean Corpuscular Hemoglobin 34.2 pg (26-32); Mean Corpuscular Hgb Concent. 32.4 g/dL (32-36); Mean Platelet Volume 10.3 fL (7.5-11.0); Monocyte (Absolute #) 0.44 x10^3/uL (0.0-1.3); Monocytes % 8.8 % (0.0-12.0); Neutrophil % 56.4 % (36.0-66.0); Platelet Count 248 x10^3/uL (150-450); Red Blood Count 4.88 x10^6/uL (4.1-5.6)
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
[2022-02-14] MEDS ORDERED: BABY ASPIRIN 81 MG CHEW PO ONE (12:58)
[2022-02-14] MEDS ORDERED: BABY ASPIRIN 81 MG CHEW ONE (13:00)
[2022-02-14 13:02] LABS: ALBUMIN 4.8 g/dL (3.5-5.0); ALKALINE PHOSPHATASE 75 U/L (38-126); ANION GAP 13.7 MEQ/L (5-15); BLOOD UREA NITROGEN 15 mg/dL (9-20); CHLORIDE 101 mmol/L (98-107); Calcium 9.5 mg/dL (8.4-10.2); Carbon Dioxide 30 mmol/L (22-30); Creatinine 1 0.87 mg/dL (0.66-1.25); EST GLOMERULAR FILTRATION RATE > 60.0 ML/MIN; Glucose 105 mg/dL (74-106); NT PRO BNP 41.5 pg/mL (0-900); Potassium 4.3 mmol/L (3.5-5.1); SGOT/AST 39 U/L (17-59); SGPT/ALT 42 U/L (0-50); SODIUM 141 mmol/L (137-145)
--- NOTE | 2022-02-14 13:15 | XRAY ---
Exam: AP upright portable chest film from 02/14/2022. Comparison: AP upright portable chest film from 06/20/2021. Indication: 56-year-old male with chest pain. Findings: The transverse heart size is normal. The vishnu and mediastinal structures appear unremarkable. EKG leads are seen in place. The lungs are well expanded. I again see a prominent calcified granuloma within the peripheral left upper lung field representing no change. The remainder of the lung rogers appears clear without infiltrates, vascular congestion, pneumothorax, or pleural fluid. Lateral osteophyte formation is seen within the lower thoracic spine. There is some superior elevation of the humeral heads with respect to each glenoid, right greater than left. This likely reflects chronic rotator cuff disease, more pronounced on the right. No acute osseous process is seen. Impression: 1. No acute cardiopulmonary disease is seen. This is unchanged from 06/20/2021.
[2022-02-14 13:26] LABS: INR 1.07 (0.8-3.0); PROTIME 11.3 SECONDS (9.4-12.5); PTT 28.2 SECONDS (25.1-36.5)
[2022-02-14 15:22] VITALS: BP 104/65; PULSE 65
[2022-02-14 15:36] VITALS: O2SAT 98
== END 2022-02-14 15:23 | disposition home or self-care (01) ==
LOC: ED 12:13
DX: R07.9 Chest pain, unspecified (principal); R11.2 Nausea with vomiting, unspecified; I10 Essential (primary) hypertension; E11.9 Type 2 diabetes mellitus without complications; E78.5 Hyperlipidemia, unspecified; Z72.0 Tobacco use; Z79.899 Other long term (current) drug therapy
CPT/HCPCS: 36000; 36415; 71045; 80053; 83880; 84484; 85025; 85610; 85730; 93005; 93041; 99284; A9270-GY

== ENCOUNTER 2023-03-10 12:09 | Emergency (ER) | payer MEDICARE ==
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
[2023-03-10 12:23] LABS: A-aADO2 547; ABG HEMOGLOBIN 21.4; ARTERIAL BLD GAS O2 SATURATION 98.3 % (95-100); ARTERIAL BLOOD GAS BASE EXCESS -16.8 (-2.0-2.0); ARTERIAL BLOOD GAS FIO2 100 %; ARTERIAL BLOOD GAS PCO2 44 mmHg (35-45); ARTERIAL BLOOD GAS PO2 111 mmHg (75-100); ARTERIAL BLOOD GAS pH 7.08 (7.35-7.45); CARBOXYHEMOGLOBIN 3.4 % THgb (0.0-6.9); HGB O2 SAT 94.3 g/dF (94-100); Methhemoglobin 0.8 % (1.4-1.5); paO2 pAO1 0.17
[2023-03-10 12:24] LABS: ABG POTASSIUM 2.5 (3.5-5.1); ABG SITE RIGHT RADIAL; ALLEN TEST OK? YES
[2023-03-10] MEDS ORDERED: solu-MEDROL 125 MG, Sterile H2O 10 ml 2 ML IV ONE ×2 (12:27)
[2023-03-10] MEDS ORDERED: DUONEB 0.5-3 MG/3 ml Neb IH ONE ×2 (12:27→12:40)
[2023-03-10] MEDS ORDERED: Sodium Chloride 0.9% 1000 ML 1,000 ML IV SCH (12:30)
[2023-03-10 12:35] VITALS: TEMP 97.4
[2023-03-10] MEDS ORDERED: solu-MEDROL ONE (12:39)
[2023-03-10] MEDS ORDERED: Sterile H2O 10 ml IJ ONE (12:39)
[2023-03-10] MEDS ORDERED: THIAMINE 200 MG/2 ML IV ONE (12:40)
[2023-03-10] MEDS ORDERED: Sodium Chloride 0.9% 1000 ML 1,000 ML ONE ×2 (12:40→14:26)
[2023-03-10] MEDS ORDERED: Magnesium 1 Gm / 100 Ml D5W*** 100 ML IV ONE ×2 (12:41→12:46)
[2023-03-10 12:45] LABS: Absolute Neutrophil Ct (ANC) 6.18 x10^3/uL (1.4-6.9); BASOPHIL % 0.3 % (0.0-0.4); Basophil (Absolute #) 0.04 x10^3/uL (0-0.4); Eosinophil % 0.5 % (0.00-5.0); Eosinophil (Absolute #) 0.06 x10^3/uL (0-0.5); Hematocrit 65.9 % (42-50); Hemoglobin 21.6 g/dL (12.5-18.0); IMMATURE GRAN # 0.06 x10^3u/L (0.00-0.03); IMMATURE GRAN % 0.5 % (0.00-0.4); Lymphocyte (Absolute #) 4.22 x10^3/uL (1.0-4.6); Lymphocytes % 35.7 % (24.0-44.0); Mean Cell Volume 108.7 fL (78-100); Mean Corpuscular Hemoglobin 35.6 pg (26-32); Mean Corpuscular Hgb Concent. 32.8 g/dL (32-36); Mean Platelet Volume 10.2 fL (7.5-11.0); Monocyte (Absolute #) 1.25 x10^3/uL (0.0-1.3); Monocytes % 10.6 % (0.0-12.0); Neutrophil % 52.4 % (36.0-66.0); Platelet Count 241 x10^3/uL (150-450); Red Blood Count 6.06 x10^6/uL (4.1-5.6); White Blood Count 11.8 x10^3/uL (4.0-10.5)
[2023-03-10] MEDS ORDERED: THIAMINE 200 MG/2 ML ONE (12:46)
[2023-03-10 12:55] LABS: ADD URINE CULTURE? ORDERED SEPARATELY (NO); Appearance Cloudy (Clear); Bacteria Rare /HPF (None Seen); Bilirubin Negative (Negative); Blood Large (Negative); Epithelial Cells None Seen /HPF (None Seen); Glucose, Urine Negative (Negative); Hyaline Casts 20-50 /LPF (0-2); Ketones Trace (Negative); Leukocyte Esterase Negative (Negative); Nitrite Negative (Negative); Protein,Urine Dip >=1000 (Negative); Specific Gravity 1.025 (1.005-1.030); Urobilinogen 0.2 mg/dL (0.2); WBC 21-50 /HPF (0-5)
[2023-03-10 13:09] LABS: ALBUMIN 5.3 g/dL (3.5-5.0); ALKALINE PHOSPHATASE 176 U/L (38-126); ANION GAP 39.3 MEQ/L (5-15); BLOOD UREA NITROGEN 3 mg/dL (9-20); CHLORIDE 102 mmol/L (98-107); Calcium 10.5 mg/dL (8.4-10.2); Creatinine 1 1.14 mg/dL (0.66-1.25); EST GLOMERULAR FILTRATION RATE > 60.0 ML/MIN; ETHYL ALCOHOL < 10 mg/dL (0-10); Glucose 193 mg/dL (74-106); MAGNESIUM 1.6 mg/dL (1.6-2.3); SGOT/AST 62 U/L (17-59); Total Protein 8.7 g/dL (6.3-8.2)
[2023-03-10 13:12] LABS: Amphetamine,Urine NEGATIVE (NEGATIVE); Barbiturate,Urine NEGATIVE (NEGATIVE); Benzodiazepine,Urine NEGATIVE (NEGATIVE); Cocaine,Urine NEGATIVE (NEGATIVE); Methadone,Urine NEGATIVE (NEGATIVE); Opiate,Urine NEGATIVE (NEGATIVE); PCP,Urine NEGATIVE (NEGATIVE); THC,Urine NEGATIVE (NEGATIVE)
[2023-03-10 13:15] LABS: SODIUM 150 mmol/L (137-145)
[2023-03-10 13:16] LABS: Carbon Dioxide 12 mmol/L (22-30); SGPT/ALT 61 U/L (0-50)
[2023-03-10] MEDS ORDERED: APRESOLINE 20 MG/ML INJ IV ONE (13:22)
[2023-03-10] MEDS ORDERED: Cardizem IV 50 MG/10 ML IV ONE ×3 (13:22→13:36)
[2023-03-10 13:24] LABS: INFLUENZA A NEGATIVE (NEGATIVE); INFLUENZA B NEGATIVE (NEGATIVE); RESPIRATORY SYNCTIAL VIRUS NEGATIVE (NEGATIVE); SARS-CoV-2 Xpert Express NEGATIVE (NEGATIVE)
[2023-03-10] MEDS ORDERED: Ativan 2 MG/1 ML VIAL ONE ×2 (13:24→13:32)
[2023-03-10] MEDS ORDERED: APRESOLINE 20 MG/ML INJ ONE (13:25)
[2023-03-10 13:29] LABS: 027 TOX PROD PRESUMPTIVE NEGATIVE (NEGATIVE); TOXIGENIC C. DIFF ORG NEGATIVE (NEGATIVE)
[2023-03-10 13:37] LABS: TROPONIN 1.01 ng/mL (0.000-0.034)
[2023-03-10] MEDS ORDERED: Ativan 2 MG/1 ML VIAL IV ONE (13:38)
[2023-03-10] MEDS ORDERED: Keppra 500 MG/5 ML*** 500 MG in D5w 100ML Mini Bag 100 ML 100 ML IV ONE (13:39)
[2023-03-10 13:54] LABS: INR 1.21 (0.8-3.0)
[2023-03-10] MEDS ORDERED: POTASSIUM CHLORIDE 20 mEq IN WATER 100ML 20 MEQ/100 ML BAG IV ONE (14:21)
[2023-03-10] MEDS ORDERED: POTASSIUM CHLORIDE 20 mEq IN WATER 100ML 100 ML IV ONE (14:25)
[2023-03-10 14:56] VITALS: BP 165/99; PULSE 121; RESP 24
[2023-03-10] MEDS ORDERED: Keppra 500 MG/5 ML*** 1,000 MG in D5w 100ML Mini Bag 100 ML 100 ML IV ONE (14:57)
[2023-03-10 15:01] VITALS: O2SAT 95
--- NOTE | 2023-03-10 16:16 | XRAY ---
CLINICAL HISTORY:seizures, AMS COMPARISON:11/28/2022. TECHNIQUE:MSCT For the brain, without contrast. Images were sent through PACs for diagnostic interpretation. FINDINGS: Bilateral frontal cortical and subcortical hypoattenuating areas with widened overlying cortical sulci, larger on the right side, likely old infarcts (stable finding). Prominent cortical sulci, Sylvian fissures, and extra-axial CSF spaces. Patchy areas of parenchymal hypoattenuation are observed in the bilateral periventricular white matter regions, jimenez radiate, and centrum semiovale, which are likely related to chronic ischemic microvascular changes. Small old lacunar infarction at the left basal ganglia/periventricular region (stable finding). Mild dilatation of the ventricular system without displacement or deformity. No midline shift. No evidence of intra- or extra-axial areas of fresh blood density and no pathological fluid collections. Normal appearance of the posterior fossa structures. No evidence of space-occupying lesions. Normal appearance of the skull base and cranial bones. Atheromatous calcifications of the internal carotid artery bilaterally. Left maxillary sinusitis is still seen. IMPRESSION: Bilateral frontal areas of encephalomalacia, larger on the right side, likely old infarcts (stable finding). Stable brain involutional changes with chronic white matter ischemia and lacunar infarcts. No intra-cranial hematomas or acute abnormalities. Clinical correlation is recommended, MRI assessment would be also recommended if clinically indicated. Electronically Signed by: Contreras Holt MD. (03/10/2023 15:14:25 RESIDENTIAL DRIVER)
--- NOTE | 2023-03-10 20:26 | XRAY ---
Indication: Short of breath. Comparison: February 14, 2022 Portable chest remains clear again with incidental left upper lobe calcified granuloma. Heart not enlarged. Bony thorax intact again with osteopenia and mild degenerative changes. Impression: Continued nonacute chest with chronic features.
[2023-03-13 06:09] LABS: Adenovirus F40/41 Not Detected (Not Detected); Astrovirus Not Detected (Not Detected); Campylobacter Not Detected (Not Detected); Cryptosporidium Not Detected (Not Detected); Cyclospora cayetanensis Not Detected (Not Detected); Entamoeba histolytica Not Detected (Not Detected); Enteroaggregative E coli Not Detected (Not Detected); Enterpathogenic E coli Detected (Not Detected); Entertoxigenic E coli Not Detected (Not Detected); Giardia lamblia Not Detected (Not Detected); Norovirus GI/GII Not Detected (Not Detected); Plesiomonas shigelloides Not Detected (Not Detected); Rotavirus A Not Detected (Not Detected); Salmonella Not Detected (Not Detected); Shig-toxin-producing E coli Not Detected (Not Detected); Shigella/Enterinvasive E coli Not Detected (Not Detected); Vibrio Not Detected (Not Detected); Vibrio cholerae Not Detected (Not Detected); Yersinia enterocolitica Not Detected (Not Detected)
[2023-03-13 06:48] LABS: Sapovirus Not Detected (Not Detected)
== END 2023-03-10 15:22 | disposition short-term general hospital (02) ==
LOC: ED 12:09
DX: R56.9 Unspecified convulsions (principal); R06.02 Shortness of breath; R77.8 Other specified abnormalities of plasma proteins; E87.6 Hypokalemia; R91.1 Solitary pulmonary nodule; I10 Essential (primary) hypertension; R00.8 Other abnormalities of heart beat; Z79.899 Other long term (current) drug therapy; Z72.0 Tobacco use; Z20.828 Contact with and (suspected) exposure to other viral communicable diseases
CPT/HCPCS: 0241U; 36000; 36415; 36600; 70450; 71045; 80053; 80307; 81001; 82077; 82375; 82803; 83605; 83735; 83880; 84484; 85025; 85610; 87086; 87493; 87507; 93005; 93041; 94640; 96365; 96367; 96374; 96375; 96376; 99285; 99291; 99292; J0360; J1953; J2060; J2930; J3475; J3480; A9270-GY

== ENCOUNTER 2023-03-23 12:53 | Observation (INO) | payer MEDICARE ==
[~2023-03-23 12:53] MED LIST: NORCO 7.5/325 MG TAB PO PRN
[2023-03-23] MEDS ORDERED: Lactated Ringers 1,000 ML IV ONE ×2 (13:06→13:23)
[2023-03-23 13:22] LABS: Absolute Neutrophil Ct (ANC) 14.21 x10^3/uL (1.4-6.9); BASOPHIL % 0.3 % (0.0-0.4); Basophil (Absolute #) 0.05 x10^3/uL (0-0.4); Eosinophil % 0.1 % (0.00-5.0); Eosinophil (Absolute #) 0.02 x10^3/uL (0-0.5); Hematocrit 50.5 % (42-50); Hemoglobin 17.1 g/dL (12.5-18.0); IMMATURE GRAN # 0.06 x10^3u/L (0.00-0.03); IMMATURE GRAN % 0.3 % (0.00-0.4); Lymphocyte (Absolute #) 2.24 x10^3/uL (1.0-4.6); Lymphocytes % 12.9 % (24.0-44.0); Mean Cell Volume 106.8 fL (78-100); Mean Corpuscular Hemoglobin 36.2 pg (26-32); Mean Corpuscular Hgb Concent. 33.9 g/dL (32-36); Mean Platelet Volume 9.5 fL (7.5-11.0); Monocyte (Absolute #) 0.84 x10^3/uL (0.0-1.3); Monocytes % 4.8 % (0.0-12.0); Neutrophil % 81.6 % (36.0-66.0); Platelet Count 219 x10^3/uL (150-450); Red Blood Count 4.73 x10^6/uL (4.1-5.6); Red Cell Distribution Width 17.5 % (11.5-14.0); White Blood Count 17.4 x10^3/uL (4.0-10.5)
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
[2023-03-23 13:42] LABS: ALBUMIN 4.3 g/dL (3.5-5.0); ALKALINE PHOSPHATASE 116 U/L (38-126); AMYLASE 48 U/L (30-110); ANION GAP 16.8 MEQ/L (5-15); BLOOD UREA NITROGEN 10 mg/dL (9-20); CHLORIDE 95 mmol/L (98-107); Calcium 8.7 mg/dL (8.4-10.2); Carbon Dioxide 28 mmol/L (22-30); Creatinine 1 0.97 mg/dL (0.66-1.25); EST GLOMERULAR FILTRATION RATE > 60.0 ML/MIN; ETHYL ALCOHOL 294 mg/dL (0-10); Glucose 105 mg/dL (74-106); LIPASE 86 U/L (23-300); Potassium 3.3 mmol/L (3.5-5.1); SGOT/AST 145 U/L (17-59); SGPT/ALT 61 U/L (0-50); SODIUM 137 mmol/L (137-145); Total Protein 7.7 g/dL (6.3-8.2)
[2023-03-23] MEDS: THIAMINE 200 MG/2 ML*** 100 MG, Vitamins For Infusion 10 ML INJECTION*** 10 ML, FOLNATE... IV SCH ×8 (13:54→14:54)
[2023-03-23] MEDS ORDERED: ROCEPHIN 1 Gm-D5w 50 ml Bag** 1 G/50 ML IVPB IV STA (14:07)
[2023-03-23] MEDS ORDERED: ENOXAPARIN SODIUM SQ STA (14:07)
[2023-03-23 14:10] LABS: Appearance Clear (Clear); Bacteria None Seen /HPF (None Seen); Bilirubin Negative (Negative); Blood Small (Negative); Epithelial Cells None Seen /HPF (None Seen); Glucose, Urine Negative (Negative); Ketones Negative (Negative); Leukocyte Esterase Negative (Negative); Nitrite Negative (Negative); Protein,Urine Dip 30 (Negative); RBC 0-2 /HPF (0-5); WBC 0-2 /HPF (0-5)
[2023-03-23] MEDS ORDERED: ENOXAPARIN SODIUM SQ ONE (14:11)
[2023-03-23] MEDS ORDERED: ROCEPHIN 1 Gm-D5w 50 ml Bag** 1 G/50 ML IVPB IV ONE (14:11)
[2023-03-23 14:19] LABS: ADD URINE CULTURE? YES (NO); Amphetamine,Urine NEGATIVE (NEGATIVE); Barbiturate,Urine NEGATIVE (NEGATIVE); Benzodiazepine,Urine POSITIVE (NEGATIVE); Cocaine,Urine NEGATIVE (NEGATIVE); Methadone,Urine NEGATIVE (NEGATIVE); Opiate,Urine NEGATIVE (NEGATIVE); PCP,Urine NEGATIVE (NEGATIVE); THC,Urine NEGATIVE (NEGATIVE)
[2023-03-23] MEDS ORDERED: Ativan 2 MG/1 ML VIAL IV PRN ×2 (14:51→16:18)
[2023-03-23] MEDS ORDERED: TYLENOL 325 MG PO PRN ×2 (15:07→16:24)
[2023-03-23] MEDS ORDERED: Dextrose 5% -0.45 NaCl 1000 ML 1,000 ML IV SCH (15:07)
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
[2023-03-23] MEDS ORDERED: PHARMACY DOSING REQUIRED: VANCOMYCIN IV STA (16:13)
[2023-03-23] MEDS ORDERED: DUONEB 0.5-3 MG/3 ml Neb IH PRN (16:24)
[2023-03-23] MEDS ORDERED: Nicoderm CQ 21 MG TOP SCH (16:30)
[2023-03-23] MEDS ORDERED: Klor Con PO SCH (16:30)
[2023-03-23] MEDS ORDERED: Lactated Ringers 1,000 ML IV SCH (16:30)
--- NOTE | 2023-03-23 17:00 | XRAY ---
CLINICAL HISTORY:shortness of breath COMPARISON:None. TECHNIQUE:X-ray chest portable AP view. FINDINGS: Prominent bilateral perihilar and lower lobe interstitial markings are noted. A small well-defined rounded opacity seen in the left upper lung zone could represent a pulmonary nodule. further evaluation with CT chest is recommended. Cardio mediastinal silhouette appears prominent in AP view. Prominent vishnu likely vascular. No pleural effusion or pneumothorax seen. No focal consolidation was seen. Visualized osseous structures show osteopenia and mild degenerative changes. Soft tissues appear unremarkable. IMPRESSION: 1. Prominent Right lower lung zone interstitial markings likely pneumonic. 2. A small well-defined rounded opacity seen in left upper lung zone could represent a pulmonary nodule. further evaluation with CT chest is recommended. 3. Prominent bilateral perihilar and prominent hilar vessels are seen likely suggestive of pulmonary congestion. 4. Visualized osseous structures show osteopenia and degenerative changes. The right shoulder is seen subluxated, suggesting dedicated imaging for assessment. Electronically Signed by: Contreras Holt MD. (03/23/2023 15:58:48 CHIEF ORTHOPTIST)
[2023-03-23] MEDS ORDERED: Nitrostat 0.4 MG Tablet SL PRN (17:06)
[2023-03-23 17:20] LABS: INFLUENZA A NEGATIVE (NEGATIVE); INFLUENZA B NEGATIVE (NEGATIVE); RESPIRATORY SYNCTIAL VIRUS NEGATIVE (NEGATIVE); SARS-CoV-2 Xpert Express NEGATIVE (NEGATIVE)
[2023-03-23] MEDS ORDERED: PIPERACILLIN/TAZOBACTAM IV ONE ×2 (17:20→23:24)
[2023-03-23] MEDS ORDERED: Klor Con PO ONE (17:20)
[2023-03-23] MEDS ORDERED: Sodium Chloride 100ML MINI-BAG PLUS 100 ML IV ONE ×2 (17:23→23:25)
[2023-03-23] MEDS: Klor Con PO SCH ×4 (17:36→23:34)
[2023-03-23] MEDS: PIPERACILLIN/TAZOBACTAM 3.375 GM in Sodium Chloride 100ML MINI-BAG PLUS 100 ML IV SCH ×2 (17:44→23:34)
[2023-03-23] MEDS: VANCOMYCIN 1 GRAM/200 ML BAG 1 GM/200 ML PIGGYBACK IV SCH (17:44)
--- NOTE | 2023-03-23 18:44 | XRAY ---
Indication: Pain and swelling. Two-dimensional sonogram and color Doppler imaging of the major venous vessels of the left leg performed. Comparison: None Popliteal vein demonstrates near occluding thrombi throughout. No other thrombus seen in the remaining examined deep venous vessels of the left leg including greater saphenous vein. Patent veins demonstrate normal compressibility and normal venous waveforms. Impression: Nonoccluding DVT popliteal vein. Comment: Preliminary report was given.
[2023-03-23] MEDS ORDERED: Keppra 250 MG ONE (20:29)
[2023-03-23] MEDS: NON-FORMULARY ITEM (Levetiracetam [Keppra] 750 MG Tablet) PO SCH ×2 (20:43→22:20)
[2023-03-23] MEDS: Neurontin PO SCH (20:43)
[2023-03-23] MEDS ORDERED: Keppra 250 MG PO ONE (20:43)
[2023-03-23] MEDS: NORVASC 5 MG PO SCH (20:43)
[2023-03-23] MEDS: CLONIDINE 0.1 MG TABLET PO SCH (20:44)
[2023-03-23] MEDS: LOPID PO SCH (20:45)
[2023-03-23] MEDS: NORCO 7.5/325 MG TAB PO ONE (21:23)
[2023-03-23] MEDS ORDERED: XARELTO 10 MG TABLET PO SCH (22:00)
[2023-03-24] MEDS: NON-FORMULARY ITEM (Albuterol Sulfate Mdi*** 8.5 GM Hfa.Aer.Ad) IH SCH ×2 (00:02→07:38)
[2023-03-24] MEDS: VANCOMYCIN 1 GRAM/200 ML BAG 1 GM/200 ML PIGGYBACK IV SCH ×2 (01:49→09:49)
[2023-03-24] MEDS: NORCO 7.5/325 MG TAB PO ONE (03:01)
[2023-03-24] MEDS ORDERED: PIPERACILLIN/TAZOBACTAM IV ONE (05:04)
[2023-03-24] MEDS ORDERED: Sodium Chloride 100ML MINI-BAG PLUS 100 ML IV ONE (05:05)
--- NOTE | 2023-03-24 05:39 | PCM.NOTE ---
Date and Time: 03/24/23534 Subjective Assessment: Mr.MERKLEY LAWSON is a 57 year old male with a pmhx of migraines, seizures, OK, HTN, asthma, sleep apnea, OA, and GERD who presented to ED 03/23/23 via ambulance with complaints of LLE pain for the past two weeks. Patient admitted with acute intoxication and cellulitis of LLE. 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 Antibiotics started for cellullitis. He was given banana bag x2 in er. During hospitalization Thiamine and Folic acid. CiWA protocol initiated. OBJECTIVE DATA Vital Signs: Vital Signs - 24 hr Temp Pulse Resp BP BP Pulse Ox 03/24/23 03:50 97.5 F 90 20 138/79 91 L 03/23/23 23:50 97.7 F 98 H 21 124/68 93 L 03/23/23 19:48 97.8 F 105 H 21 96/59 95 03/23/23 19:41 19 03/23/23 18:51 102 H 18 92 L 03/23/23 17:53 97.8 F 102 H 20 103/59 94 L 03/23/23 16:57 104 H 20 94 L 03/23/23 16:56 94 L 03/23/23 16:00 97.8 F 102 H 20 103/59 94 L 03/23/23 14:30 93 H 27 H 03/23/23 14:24 95 03/23/23 14:20 96 H 20 03/23/23 14:10 91 H 23 96 03/23/23 14:00 93 H 19 93 L 03/23/23 13:50 98 H 31 H 95 03/23/23 13:40 100 H 15 03/23/23 13:33 98 H 21 03/23/23 13:00 106/64 03/23/23 12:53 96.6 F 105 H 18 127/65 95 Pain Assessment - Last Documented Pain Intensity 8 Pain Scale Used 0-10 Pain Scale Intake and Output: Intake & Output 03/21/23 03/22/23 03/23/23 03/24/23 11:59 11:59 11:59 11:59 Intake Total 460 Output Total 300 Balance 160 Weight 88.6 kg Lab Results: Lab Results-Last 24 Hours 03/23/23 03/23/23 03/23/23 Range/Units 13:13 13:13 13:13 WBC 17.4 H (4.0-10.5) x10^3/uL RBC 4.73 (4.1-5.6) x10^6/uL Hgb 17.1 (12.5-18.0) g/dL Hct 50.5 H (42-50) % MCV 106.8 H (78-100) fL MCH 36.2 H (26-32) pg MCHC 33.9 (32-36) g/dL RDW 17.5 H (11.5-14.0) % Plt Count 219 (150-450) x10^3/uL MPV 9.5 (7.5-11.0) fL Gran % 81.6 H (36.0-66.0) % Immature Gran % (Auto) 0.3 (0.00-0.4) % Nucleat RBC Rel Count 0.0 (0.00-0.1) % Eos # (Auto) 0.02 (0-0.5) x10^3/uL Immature Gran # (Auto) 0.06 H (0.00-0.03) x10^3u/L Absolute Lymphs (auto) 2.24 (1.0-4.6) x10^3/uL Absolute Monos (auto) 0.84 (0.0-1.3) x10^3/uL Absolute Nucleated RBC 0.00 (0.00-0.01) x10^3u/L Lymphocytes % 12.9 L (24.0-44.0) % Monocytes % 4.8 (0.0-12.0) % Eosinophils % 0.1 (0.00-5.0) % Basophils % 0.3 (0.0-0.4) % Absolute Granulocytes 14.21 H (1.4-6.9) x10^3/uL Basophils # 0.05 (0-0.4) x10^3/uL ESR 48 H (0-15) mm/hr Sodium 137 (137-145) mmol/L Potassium 3.3 L (3.5-5.1) mmol/L Chloride 95 L (98-107) mmol/L Carbon Dioxide 28 (22-30) mmol/L Anion Gap 16.8 H (5-15) MEQ/L BUN 10 (9-20) mg/dL Creatinine 0.97 (0.66-1.25) mg/dL Estimated GFR > 60.0 ML/MIN Glucose 105 (74-106) mg/dL POC Glucometer (74 to 106) mg/dL Lactic Acid (0.4-2.0) Calcium 8.7 (8.4-10.2) mg/dL Magnesium 2.0 (1.6-2.3) mg/dL Total Bilirubin 0.80 (0.2-1.3) mg/dL AST 145 H (17-59) U/L ALT 61 H (0-50) U/L Alkaline Phosphatase 116 (38-126) U/L Serum Total Protein 7.7 (6.3-8.2) g/dL Albumin 4.3 (3.5-5.0) g/dL Prealbumin (17.6-36.0) mg/dL Amylase 48 (30-110) U/L Lipase 86 (23-300) U/L Procalcitonin (0.030-0.080) ng/mL Urine Color (Yellow) Urine Appearance (Clear) Urine pH (4.6-8.0) Ur Specific [place] (1.005-1.030) Urine Protein (Negative) Urine Glucose (UA) (Negative) mg/dL Urine Ketones (Negative) Urine Blood (Negative) Urine Nitrite (Negative) Urine Bilirubin (Negative) Urine Urobilinogen (0.2) mg/dL Ur Leukocyte Esterase (Negative) U Hyaline Cast (Auto) (0-2) /LPF Urine Microscopic RBC (0-5) /HPF Urine Microscopic WBC (0-5) /HPF Ur Epithelial Cells (None Seen) /HPF Urine Bacteria (None Seen) /HPF Urine Culture Reflexed (NO) Urine Opiates Level (NEGATIVE) Ur Methadone (NEGATIVE) Urine Barbiturates (NEGATIVE) Ur Phencyclidine (PCP) (NEGATIVE) Urine Amphetamine (NEGATIVE) U Benzodiazepine Level (NEGATIVE) Urine Cocaine (NEGATIVE) Urine Marijuana (THC) (NEGATIVE) Ethyl Alcohol 294 H (0-10) mg/dL Influenza Type A Ag (NEGATIVE) Influenza Type B Ag (NEGATIVE) RSV (PCR) (NEGATIVE) SARS-CoV-2 (PCR) (NEGATIVE) 03/23/23 03/23/23 03/23/23 Range/Units 13:13 13:51 13:51 WBC (4.0-10.5) x10^3/uL RBC (4.1-5.6) x10^6/uL Hgb (12.5-18.0) g/dL Hct (42-50) % MCV (78-100) fL MCH (26-32) pg MCHC (32-36) g/dL RDW (11.5-14.0) % Plt Count (150-450) x10^3/uL MPV (7.5-11.0) fL Gran % (36.0-66.0) % Immature Gran % (Auto) (0.00-0.4) % Nucleat RBC Rel Count (0.00-0.1) % Eos # (Auto) (0-0.5) x10^3/uL Immature Gran # (Auto) (0.00-0.03) x10^3u/L Absolute Lymphs (auto) (1.0-4.6) x10^3/uL Absolute Monos (auto) (0.0-1.3) x10^3/uL Absolute Nucleated RBC (0.00-0.01) x10^3u/L Lymphocytes % (24.0-44.0) % Monocytes % (0.0-12.0) % Eosinophils % (0.00-5.0) % Basophils % (0.0-0.4) % Absolute Granulocytes (1.4-6.9) x10^3/uL Basophils # (0-0.4) x10^3/uL ESR (0-15) mm/hr Sodium (137-145) mmol/L Potassium (3.5-5.1) mmol/L Chloride (98-107) mmol/L Carbon Dioxide (22-30) mmol/L Anion Gap (5-15) MEQ/L BUN (9-20) mg/dL Creatinine (0.66-1.25) mg/dL Estimated GFR ML/MIN Glucose (74-106) mg/dL POC Glucometer (74 to 106) mg/dL Lactic Acid (0.4-2.0) Calcium (8.4-10.2) mg/dL Magnesium (1.6-2.3) mg/dL Total Bilirubin (0.2-1.3) mg/dL AST (17-59) U/L ALT (0-50) U/L Alkaline Phosphatase (38-126) U/L Serum Total Protein (6.3-8.2) g/dL Albumin (3.5-5.0) g/dL Prealbumin (17.6-36.0) mg/dL Amylase (30-110) U/L Lipase (23-300) U/L Procalcitonin 0.152 H (0.030-0.080) ng/mL Urine Color Yellow (Yellow) Urine Appearance Clear (Clear) Urine pH 6.0 (4.6-8.0) Ur Specific [place] 1.010 (1.005-1.030) Urine Protein 30 (Negative) Urine Glucose (UA) Negative (Negative) mg/dL Urine Ketones Negative (Negative) Urine Blood Small A (Negative) Urine Nitrite Negative (Negative) Urine Bilirubin Negative (Negative) Urine Urobilinogen 1.0 A (0.2) mg/dL Ur Leukocyte Esterase Negative (Negative) U Hyaline Cast (Auto) 3-5 A (0-2) /LPF Urine Microscopic RBC 0-2 (0-5) /HPF Urine Microscopic WBC 0-2 (0-5) /HPF Ur Epithelial Cells None Seen (None Seen) /HPF Urine Bacteria None Seen (None Seen) /HPF Urine Culture Reflexed YES (NO) Urine Opiates Level NEGATIVE (NEGATIVE) Ur Methadone NEGATIVE (NEGATIVE) Urine Barbiturates NEGATIVE (NEGATIVE) Ur Phencyclidine (PCP) NEGATIVE (NEGATIVE) Urine Amphetamine NEGATIVE (NEGATIVE) U Benzodiazepine Level POSITIVE (NEGATIVE) Urine Cocaine NEGATIVE (NEGATIVE) Urine Marijuana (THC) NEGATIVE (NEGATIVE) Ethyl Alcohol (0-10) mg/dL Influenza Type A Ag (NEGATIVE) Influenza Type B Ag (NEGATIVE) RSV (PCR) (NEGATIVE) SARS-CoV-2 (PCR) (NEGATIVE) 03/23/23 03/23/23 03/23/23 Range/Units 15:05 16:30 16:40 WBC (4.0-10.5) x10^3/uL RBC (4.1-5.6) x10^6/uL Hgb (12.5-18.0) g/dL Hct (42-50) % MCV (78-100) fL MCH (26-32) pg MCHC (32-36) g/dL RDW (11.5-14.0) % Plt Count (150-450) x10^3/uL MPV (7.5-11.0) fL Gran % (36.0-66.0) % Immature Gran % (Auto) (0.00-0.4) % Nucleat RBC Rel Count (0.00-0.1) % Eos # (Auto) (0-0.5) x10^3/uL Immature Gran # (Auto) (0.00-0.03) x10^3u/L Absolute Lymphs (auto) (1.0-4.6) x10^3/uL Absolute Monos (auto) (0.0-1.3) x10^3/uL Absolute Nucleated RBC (0.00-0.01) x10^3u/L Lymphocytes % (24.0-44.0) % Monocytes % (0.0-12.0) % Eosinophils % (0.00-5.0) % Basophils % (0.0-0.4) % Absolute Granulocytes (1.4-6.9) x10^3/uL Basophils # (0-0.4) x10^3/uL ESR (0-15) mm/hr Sodium (137-145) mmol/L Potassium (3.5-5.1) mmol/L Chloride (98-107) mmol/L Carbon Dioxide (22-30) mmol/L Anion Gap (5-15) MEQ/L BUN (9-20) mg/dL Creatinine (0.66-1.25) mg/dL Estimated GFR ML/MIN Glucose (74-106) mg/dL POC Glucometer (74 to 106) mg/dL Lactic Acid 3.9 H (0.4-2.0) Calcium (8.4-10.2) mg/dL Magnesium (1.6-2.3) mg/dL Total Bilirubin (0.2-1.3) mg/dL AST (17-59) U/L ALT (0-50) U/L Alkaline Phosphatase (38-126) U/L Serum Total Protein (6.3-8.2) g/dL Albumin (3.5-5.0) g/dL Prealbumin 11.28 L (17.6-36.0) mg/dL Amylase (30-110) U/L Lipase (23-300) U/L Procalcitonin (0.030-0.080) ng/mL Urine Color (Yellow) Urine Appearance (Clear) Urine pH (4.6-8.0) Ur Specific [place] (1.005-1.030) Urine Protein (Negative) Urine Glucose (UA) (Negative) mg/dL Urine Ketones (Negative) Urine Blood (Negative) Urine Nitrite (Negative) Urine Bilirubin (Negative) Urine Urobilinogen (0.2) mg/dL Ur Leukocyte Esterase (Negative) U Hyaline Cast (Auto) (0-2) /LPF Urine Microscopic RBC (0-5) /HPF Urine Microscopic WBC (0-5) /HPF Ur Epithelial Cells (None Seen) /HPF Urine Bacteria (None Seen) /HPF Urine Culture Reflexed (NO) Urine Opiates Level (NEGATIVE) Ur Methadone (NEGATIVE) Urine Barbiturates (NEGATIVE) Ur Phencyclidine (PCP) (NEGATIVE) Urine Amphetamine (NEGATIVE) U Benzodiazepine Level (NEGATIVE) Urine Cocaine (NEGATIVE) Urine Marijuana (THC) (NEGATIVE) Ethyl Alcohol (0-10) mg/dL Influenza Type A Ag NEGATIVE (NEGATIVE) Influenza Type B Ag NEGATIVE (NEGATIVE) RSV (PCR) NEGATIVE (NEGATIVE) SARS-CoV-2 (PCR) NEGATIVE (NEGATIVE) 03/23/23 03/23/23 03/23/23 Range/Units 17:05 18:09 20:55 WBC (4.0-10.5) x10^3/uL RBC (4.1-5.6) x10^6/uL Hgb (12.5-18.0) g/dL Hct (42-50) % MCV (78-100) fL MCH (26-32) pg MCHC (32-36) g/dL RDW (11.5-14.0) % Plt Count (150-450) x10^3/uL MPV (7.5-11.0) fL Gran % (36.0-66.0) % Immature Gran % (Auto) (0.00-0.4) % Nucleat RBC Rel Count (0.00-0.1) % Eos # (Auto) (0-0.5) x10^3/uL Immature Gran # (Auto) (0.00-0.03) x10^3u/L Absolute Lymphs (auto) (1.0-4.6) x10^3/uL Absolute Monos (auto) (0.0-1.3) x10^3/uL Absolute Nucleated RBC (0.00-0.01) x10^3u/L Lymphocytes % (24.0-44.0) % Monocytes % (0.0-12.0) % Eosinophils % (0.00-5.0) % Basophils % (0.0-0.4) % Absolute Granulocytes (1.4-6.9) x10^3/uL Basophils # (0-0.4) x10^3/uL ESR (0-15) mm/hr Sodium (137-145) mmol/L Potassium 3.2 L 3.6 (3.5-5.1) mmol/L Chloride (98-107) mmol/L Carbon Dioxide (22-30) mmol/L Anion Gap (5-15) MEQ/L BUN (9-20) mg/dL Creatinine (0.66-1.25) mg/dL Estimated GFR ML/MIN Glucose (74-106) mg/dL POC Glucometer 165 H (74 to 106) mg/dL Lactic Acid (0.4-2.0) Calcium (8.4-10.2) mg/dL Magnesium (1.6-2.3) mg/dL Total Bilirubin (0.2-1.3) mg/dL AST (17-59) U/L ALT (0-50) U/L Alkaline Phosphatase (38-126) U/L Serum Total Protein (6.3-8.2) g/dL Albumin (3.5-5.0) g/dL Prealbumin (17.6-36.0) mg/dL Amylase (30-110) U/L Lipase (23-300) U/L Procalcitonin (0.030-0.080) ng/mL Urine Color (Yellow) Urine Appearance (Clear) Urine pH (4.6-8.0) Ur Specific [place] (1.005-1.030) Urine Protein (Negative) Urine Glucose (UA) (Negative) mg/dL Urine Ketones (Negative) Urine Blood (Negative) Urine Nitrite (Negative) Urine Bilirubin (Negative) Urine Urobilinogen (0.2) mg/dL Ur Leukocyte Esterase (Negative) U Hyaline Cast (Auto) (0-2) /LPF Urine Microscopic RBC (0-5) /HPF Urine Microscopic WBC (0-5) /HPF Ur Epithelial Cells (None Seen) /HPF Urine Bacteria (None Seen) /HPF Urine Culture Reflexed (NO) Urine Opiates Level (NEGATIVE) Ur Methadone (NEGATIVE) Urine Barbiturates (NEGATIVE) Ur Phencyclidine (PCP) (NEGATIVE) Urine Amphetamine (NEGATIVE) U Benzodiazepine Level (NEGATIVE) Urine Cocaine (NEGATIVE) Urine Marijuana (THC) (NEGATIVE) Ethyl Alcohol (0-10) mg/dL Influenza Type A Ag (NEGATIVE) Influenza Type B Ag (NEGATIVE) RSV (PCR) (NEGATIVE) SARS-CoV-2 (PCR) (NEGATIVE) 03/23/23 Range/Units 22:15 WBC (4.0-10.5) x10^3/uL RBC (4.1-5.6) x10^6/uL Hgb (12.5-18.0) g/dL Hct (42-50) % MCV (78-100) fL MCH (26-32) pg MCHC (32-36) g/dL RDW (11.5-14.0) % Plt Count (150-450) x10^3/uL MPV (7.5-11.0) fL Gran % (36.0-66.0) % Immature Gran % (Auto) (0.00-0.4) % Nucleat RBC Rel Count (0.00-0.1) % Eos # (Auto) (0-0.5) x10^3/uL Immature Gran # (Auto) (0.00-0.03) x10^3u/L Absolute Lymphs (auto) (1.0-4.6) x10^3/uL Absolute Monos (auto) (0.0-1.3) x10^3/uL Absolute Nucleated RBC (0.00-0.01) x10^3u/L Lymphocytes % (24.0-44.0) % Monocytes % (0.0-12.0) % Eosinophils % (0.00-5.0) % Basophils % (0.0-0.4) % Absolute Granulocytes (1.4-6.9) x10^3/uL Basophils # (0-0.4) x10^3/uL ESR (0-15) mm/hr Sodium (137-145) mmol/L Potassium (3.5-5.1) mmol/L Chloride (98-107) mmol/L Carbon Dioxide (22-30) mmol/L Anion Gap (5-15) MEQ/L BUN (9-20) mg/dL Creatinine (0.66-1.25) mg/dL Estimated GFR ML/MIN Glucose (74-106) mg/dL POC Glucometer 140 H (74 to 106) mg/dL Lactic Acid (0.4-2.0) Calcium (8.4-10.2) mg/dL Magnesium (1.6-2.3) mg/dL Total Bilirubin (0.2-1.3) mg/dL AST (17-59) U/L ALT (0-50) U/L Alkaline Phosphatase (38-126) U/L Serum Total Protein (6.3-8.2) g/dL Albumin (3.5-5.0) g/dL Prealbumin (17.6-36.0) mg/dL Amylase (30-110) U/L Lipase (23-300) U/L Procalcitonin (0.030-0.080) ng/mL Urine Color (Yellow) Urine Appearance (Clear) Urine pH (4.6-8.0) Ur Specific [place] (1.005-1.030) Urine Protein (Negative) Urine Glucose (UA) (Negative) mg/dL Urine Ketones (Negative) Urine Blood (Negative) Urine Nitrite (Negative) Urine Bilirubin (Negative) Urine Urobilinogen (0.2) mg/dL Ur Leukocyte Esterase (Negative) U Hyaline Cast (Auto) (0-2) /LPF Urine Microscopic RBC (0-5) /HPF Urine Microscopic WBC (0-5) /HPF Ur Epithelial Cells (None Seen) /HPF Urine Bacteria (None Seen) /HPF Urine Culture Reflexed (NO) Urine Opiates Level (NEGATIVE) Ur Methadone (NEGATIVE) Urine Barbiturates (NEGATIVE) Ur Phencyclidine (PCP) (NEGATIVE) Urine Amphetamine (NEGATIVE) U Benzodiazepine Level (NEGATIVE) Urine Cocaine (NEGATIVE) Urine Marijuana (THC) (NEGATIVE) Ethyl Alcohol (0-10) mg/dL Influenza Type A Ag (NEGATIVE) Influenza Type B Ag (NEGATIVE) RSV (PCR) (NEGATIVE) SARS-CoV-2 (PCR) (NEGATIVE) Radiology Exams: Radiology Procedures Category Date Time Status CHEST 1 VIEW (PORTABLE) Stat Exams 03/23/23 16:09 Completed VENOUS UNILAT/LIMITED EXTREMIT [US] Stat Exams 03/23/23 12:59 Completed Assessment/Plan (1) Sepsis Current Visit: Yes Status: Acute Assessment & Plan: -Source most likely cellulitis Sepsis criteria identified Patient has received 2L for fluid resuscitation. Blood cultures x2 ordered Antibiotics started Vanc/zosyn -Supplemental oxygen as needed to maintain spo2 >92% -CMP, CBC, LA, PCT, CXR, UA, influenza/viral panel -IVF Lactate drawn. Repeat lactate will be drawn in initial >2mmol/L If subsequent lactate elevated, trend until WNL Will admin vasopressors is hypotensive after IV admin (MAP <65 or SBP <90). 03/24: -Lactic trend now wnl 1.1<3.9 -bcult/ucult pending -CXR demonstrates pulmonary congestion and slime upper lung opacity that may represent pulm nodule. CT chest is recommended and ordered (2) Cellulitis of left leg without foot Current Visit: Yes Status: Acute Assessment & Plan: - concerning for beta-hemolytic strep vs staph aureus - unclear at this point of time, but does not seem to have bone involvement or - will obtain ESR, PCT, CRP, blood cultures - marked with outer border of erythema to monitor progress/regression - nonantibiotic therapy with elevation of extremities, keeping skin sufficiently hydrated - MRSA screening - consider wound culture - would continue coverage for MRSA with vancomycin/zosyn for now until able to narrow coverage with culture results - Consider C/s podiatry -Consider Arterial duplex - may consider ID C/s if does not improve in 48-72 hours on abx Code(s): L03.116 - CELLULITIS OF LEFT LOWER LIMB (3) Hypokalemia Current Visit: Yes Status: Acute Assessment & Plan: -potassium protocol Code(s): E87.6 - HYPOKALEMIA (4) Leukocytosis Current Visit: Yes Status: Acute Assessment & Plan: -see sepsis, WBC at 17.4, will continue to trend Code(s): D72.829 - ELEVATED WHITE BLOOD CELL COUNT, UNSPECIFIED (5) Acute alcohol intoxication Current Visit: Yes Status: Acute Qualifiers: Complication of substance-induced condition: with unspecified complication Qualified Code(s): F10.929 - Alcohol use, unspecified with intoxication, unspecified Assessment & Plan: Start LR @ 50 ml/hr initiate CIWA protocol including seizure and fall precautions, lorazepam PRN, MVI, thiamine, & folic acid Start nicotine patch and smoking cessation education CBC, BMP, Mg in am continue appropriate baseline home medications Code(s): F10.929 - ALCOHOL USE, UNSPECIFIED WITH INTOXICATION, UNSPECIFIED (6) DVT of popliteal vein Current Visit: Yes Status: Acute Qualifiers: Chronicity: chronic Laterality: left Qualified Code(s): I82.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 - Chronic embolism and thrombosis of left popliteal vein Assessment & Plan: -Start Lovenox 1mg/kg Q12h, transition to OAC after 24 hours ( 2 hours prior to next dose of lovenox) Code(s): I82.439 - ACUTE EMBOLISM AND THROMBOSIS OF UNSPECIFIED POPLITEAL VEIN (7) Seizure disorder, convulsive, with status epilepticus Current Visit: No Status: Acute Assessment & Plan: -Resume home meds Code(s): G40.301 - GEN IDIOPATHIC EPILEPSY, NOT INTRACTABLE, W STAT EPI (8) Shortness of breath Current Visit: No Status: Acute Assessment & Plan: -cxr, resp viral panel 03/24: -CXR as stated above, will order CT, resp viral panel negative Code(s): R06.02 - SHORTNESS OF BREATH (9) Heart failure with reduced ejection fraction Current Visit: Yes Status: Acute Assessment & Plan: -NUCMED/HEART SPECT MULTIPLE from 09/03/22: 1. Left ventricle hypertrophy with global hypokinetic wall motion. 2. New very small focus pharmacologic induced reversible ischemia involving anteroseptal wall. 3. Low ejection fraction 48%. -CXR showing pulmonary congestion, will start lasix 40mg daily -BNP -Optimize renal/lytes with goal K>4, Mg >2 Code(s): I50.20 - UNSPECIFIED SYSTOLIC (CONGESTIVE) HEART FAILURE
[2023-03-24] MEDS: PIPERACILLIN/TAZOBACTAM 3.375 GM in Sodium Chloride 100ML MINI-BAG PLUS 100 ML IV SCH (05:42)
[2023-03-24 05:44] LABS: Absolute Neutrophil Ct (ANC) 6.86 x10^3/uL (1.4-6.9); BASOPHIL % 0.4 % (0.0-0.4); Basophil (Absolute #) 0.03 x10^3/uL (0-0.4); Eosinophil % 0.1 % (0.00-5.0); Eosinophil (Absolute #) 0.01 x10^3/uL (0-0.5); Hematocrit 40.9 % (42-50); Hemoglobin 13.9 g/dL (12.5-18.0); IMMATURE GRAN # 0.02 x10^3u/L (0.00-0.03); IMMATURE GRAN % 0.2 % (0.00-0.4); Lymphocyte (Absolute #) 0.86 x10^3/uL (1.0-4.6); Lymphocytes % 10.4 % (24.0-44.0); Mean Platelet Volume 9.4 fL (7.5-11.0); Monocyte (Absolute #) 0.52 x10^3/uL (0.0-1.3); Monocytes % 6.3 % (0.0-12.0); Neutrophil % 82.6 % (36.0-66.0); Platelet Count 144 x10^3/uL (150-450); Red Blood Count 3.86 x10^6/uL (4.1-5.6); Red Cell Distribution Width 17.6 % (11.5-14.0); White Blood Count 8.3 x10^3/uL (4.0-10.5)
[2023-03-24 06:14] LABS: ALBUMIN 3.3 g/dL (3.5-5.0); ALKALINE PHOSPHATASE 93 U/L (38-126); ANION GAP 10.6 MEQ/L (5-15); BLOOD UREA NITROGEN 8 mg/dL (9-20); CHLORIDE 102 mmol/L (98-107); Calcium 7.7 mg/dL (8.4-10.2); Carbon Dioxide 26 mmol/L (22-30); Creatinine 1 0.69 mg/dL (0.66-1.25); EST GLOMERULAR FILTRATION RATE > 60.0 ML/MIN; Glucose 103 mg/dL (74-106); SGOT/AST 114 U/L (17-59); SGPT/ALT 48 U/L (0-50); SODIUM 135 mmol/L (137-145); Total Protein 6.2 g/dL (6.3-8.2)
[2023-03-24 06:52] VITALS: BP 125/67; TEMP 97.8
[2023-03-24] MEDS: VENTOLIN COMMON CANISTER IH SCH ×2 (07:38→10:30)
[2023-03-24 08:17] VITALS: RESP 18
[2023-03-24] MEDS: Neurontin PO SCH (09:56)
[2023-03-24] MEDS: NORVASC 5 MG PO SCH (09:56)
[2023-03-24] MEDS: CLONIDINE 0.1 MG TABLET PO SCH (09:57)
[2023-03-24] MEDS: LOPID PO SCH (09:58)
[2023-03-24] MEDS ORDERED: OMEPRAZOLE PO SCH (10:00)
[2023-03-24] MEDS ORDERED: Lasix 40 MG/4 ML IV SCH (10:00)
[2023-03-24] MEDS ORDERED: ELIQUIS 2.5 MG TABLET PO SCH (10:00)
[2023-03-24] MEDS ORDERED: KEPPRA PO SCH (10:00)
[2023-03-24] MEDS ORDERED: Keppra 250 MG PO SCH (10:00)
[2023-03-24] MEDS ORDERED: FOLATE 1 MG PO SCH (10:00)
[2023-03-24] MEDS ORDERED: VITAMIN B-1 100 MG PO SCH (10:00)
[2023-03-24] MEDS ORDERED: ROCEPHIN 1 Gm-D5w 50 ml Bag** 1 G/50 ML IVPB IV SCH (10:00)
[2023-03-24] MEDS ORDERED: Lexapro PO SCH (10:00)
[2023-03-24] MEDS ORDERED: NON-FORMULARY ITEM (Escitalopram Oxalate [Lexapro] 20 MG Tablet) PO SCH (10:00)
[2023-03-24] MEDS ORDERED: NON-FORMULARY ITEM (Losartan Potassium [Cozaar] 100 MG Tablet) PO SCH (10:00)
[2023-03-24] MEDS ORDERED: THERAGRAN MULTIVITAMIN PO SCH (10:00)
[2023-03-24] MEDS ORDERED: Cozaar 50 MG PO SCH (10:00)
[2023-03-24] MEDS ORDERED: Zithromax 500 MG/ 250 ML NaCl Premix 500 MG/250 ML IVPB IV SCH (10:00)
[2023-03-24] MEDS ORDERED: Protonix 40MG Tablet PO SCH (10:00)
--- NOTE | 2023-03-24 10:44 | PCM.DS ---
Discharge Summary Date of Admission: 03/23/23 15:01 Date of Discharge: 03/24/23 Admitting Physician: ERIN QUACH MD Primary Care Provider: AXEL CISNEROS Allergies Allergies No Known Drug Allergies Allergy (Verified 03/23/23 12:55) Hospital Summary - Hospital Course Hospital Course: Mr.MERKLEY LAWSON is a 57 year old male with a pmhx of migraines, seizures, OR, HTN, asthma, sleep apnea, OA, and GERD who presented to ED 03/23/23 via ambulance with complaints of LLE pain for the past two weeks. Patient admitted with acute intoxication and cellulitis of LLE. He has evidence of alcoholic hepatitis. Antibiotics started for cellullitis. He was given banana bag x2 in er. During hospitalization Thiamine and Folic acid. CiWA protocol initiated. Lab values much improved overnight, WBC now normal. Patient requesting to be discharged home, has h/o leaving AMA. Will discharge home today on Cefdinir/doxy for 10days with close follow up with PCP advised. Discussed that he may benefit from wound therapy/maye boot. Started on Eliquis for DVT. Advised cessation of alcohol/smoking. Also discussed the importance of medication compliance. Discharge Note New Diagnosis: Chronic DVT, Cellulitis, Alcohol intoxication New Medications: Lasix/cefdinir/doxy/ Eliquis Follow Up: PCP Results pending: Blood cult, will follow Latest Assessment & Plan (1) Sepsis Current Visit: Yes Status: Acute Assessment & Plan: -Source most likely cellulitis Sepsis criteria identified Patient has received 2L for fluid resuscitation. Blood cultures x2 ordered Antibiotics started Vanc/zosyn -Supplemental oxygen as needed to maintain spo2 >92% -CMP, CBC, LA, PCT, CXR, UA, influenza/viral panel -IVF Lactate drawn. Repeat lactate will be drawn in initial >2mmol/L If subsequent lactate elevated, trend until WNL Will admin vasopressors is hypotensive after IV admin (MAP <65 or SBP <90). 03/24: -Lactic trend now wnl 1.1<3.9 -bcult/ucult pending -CXR demonstrates pulmonary congestion and slime upper lung opacity that may represent pulm nodule. CT chest is recommended and ordered (2) Cellulitis of left leg without foot Current Visit: Yes Status: Acute Assessment & Plan: - concerning for beta-hemolytic strep vs staph aureus - unclear at this point of time, but does not seem to have bone involvement or - will obtain ESR, PCT, CRP, blood cultures - marked with outer border of erythema to monitor progress/regression - nonantibiotic therapy with elevation of extremities, keeping skin sufficiently hydrated - MRSA screening - consider wound culture - would continue coverage for MRSA with vancomycin/zosyn for now until able to narrow coverage with culture results - Consider C/s podiatry -Consider Arterial duplex - may consider ID C/s if does not improve in 48-72 hours on abx Code(s): L03.116 - CELLULITIS OF LEFT LOWER LIMB (3) Hypokalemia Current Visit: Yes Status: Acute Assessment & Plan: -potassium protocol Code(s): E87.6 - HYPOKALEMIA (4) Leukocytosis Current Visit: Yes Status: Acute Assessment & Plan: -see sepsis, WBC at 17.4, will continue to trend Code(s): D72.829 - ELEVATED WHITE BLOOD CELL COUNT, UNSPECIFIED (5) Acute alcohol intoxication Current Visit: Yes Status: Acute Qualifiers: Complication of substance-induced condition: with unspecified complication Qualified Code(s): F10.929 - Alcohol use, unspecified with intoxication, unspecified Assessment & Plan: Start LR @ 50 ml/hr initiate CIWA protocol including seizure and fall precautions, lorazepam PRN, MVI, thiamine, & folic acid Start nicotine patch and smoking cessation education CBC, BMP, Mg in am continue appropriate baseline home medications Code(s): F10.929 - ALCOHOL USE, UNSPECIFIED WITH INTOXICATION, UNSPECIFIED (6) DVT of popliteal vein Current Visit: Yes Status: Acute Qualifiers: Chronicity: chronic Laterality: left Qualified Code(s): I82.532 - Chronic embolism and thrombosis of left popliteal vein Assessment & Plan: -Start Lovenox 1mg/kg Q12h, transition to OAC after 24 hours ( 2 hours prior to next dose of lovenox) Code(s): I82.439 - ACUTE EMBOLISM AND THROMBOSIS OF UNSPECIFIED POPLITEAL VEIN (7) Seizure disorder, convulsive, with status epilepticus Current Visit: No Status: Acute Assessment & Plan: -Resume home meds Code(s): G40.301 - GEN IDIOPATHIC EPILEPSY, NOT INTRACTABLE, W STAT EPI (8) Shortness of breath Current Visit: No Status: Acute Assessment & Plan: -cxr, resp viral panel 03/24: -CXR as stated above, will order CT, resp viral panel negative Code(s): R06.02 - SHORTNESS OF BREATH (9) Heart failure with reduced ejection fraction Current Visit: Yes Status: Acute Assessment & Plan: -NUCMED/HEART SPECT MULTIPLE from 09/03/22: 1. Left ventricle hypertrophy with global hypokinetic wall motion. 2. New very small focus pharmacologic induced reversible ischemia involving anteroseptal wall. 3. Low ejection fraction 48%. -CXR showing pulmonary congestion, will start lasix 40mg daily -BNP -Optimize renal/lytes with goal K>4, Mg >2 I spent 35 minutes [id number] with the patient on the day of discharge performing discharge exam, discussing hospital stay and discharge instructions with patient and caregivers, preparation of discharge records, prescriptions & referral forms and addressing any questions/concerns the patient had as documented above. - Vitals & Intake/Output Vital Signs: Vital Signs Temperature 97.8 F 03/24/23 06:51 Pulse Rate 93 H 03/24/23 06:51 Respiratory Rate 18 03/24/23 08:00 Blood Pressure 125/67 03/24/23 06:51 O2 Sat by Pulse Oximetry 91 L 03/24/23 06:51 Intake & Output: Intake & Output 03/21/23 03/22/23 03/23/23 03/24/23 11:59 11:59 11:59 11:59 Intake Total 700 Output Total 300 Balance 400 Weight 88.5 kg - Lab Result Diagrams: 03/24/23 05:38 03/24/23 05:38 Lab Results-Last 24 Hrs: Lab Results-Last 24 Hours 03/23/23 03/23/23 03/23/23 Range/Units 13:13 13:13 13:13 WBC 17.4 H (4.0-10.5) x10^3/uL RBC 4.73 (4.1-5.6) x10^6/uL Hgb 17.1 (12.5-18.0) g/dL Hct 50.5 H (42-50) % MCV 106.8 H (78-100) fL MCH 36.2 H (26-32) pg MCHC 33.9 (32-36) g/dL RDW 17.5 H (11.5-14.0) % Plt Count 219 (150-450) x10^3/uL MPV 9.5 (7.5-11.0) fL Gran % 81.6 H (36.0-66.0) % Immature Gran % (Auto) 0.3 (0.00-0.4) % Nucleat RBC Rel Count 0.0 (0.00-0.1) % Eos # (Auto) 0.02 (0-0.5) x10^3/uL Immature Gran # (Auto) 0.06 H (0.00-0.03) x10^3u/L Absolute Lymphs (auto) 2.24 (1.0-4.6) x10^3/uL Absolute Monos (auto) 0.84 (0.0-1.3) x10^3/uL Absolute Nucleated RBC 0.00 (0.00-0.01) x10^3u/L Lymphocytes % 12.9 L (24.0-44.0) % Monocytes % 4.8 (0.0-12.0) % Eosinophils % 0.1 (0.00-5.0) % Basophils % 0.3 (0.0-0.4) % Absolute Granulocytes 14.21 H (1.4-6.9) x10^3/uL Basophils # 0.05 (0-0.4) x10^3/uL ESR 48 H (0-15) mm/hr Sodium 137 (137-145) mmol/L Potassium 3.3 L (3.5-5.1) mmol/L Chloride 95 L (98-107) mmol/L Carbon Dioxide 28 (22-30) mmol/L Anion Gap 16.8 H (5-15) MEQ/L BUN 10 (9-20) mg/dL Creatinine 0.97 (0.66-1.25) mg/dL Estimated GFR > 60.0 ML/MIN Glucose 105 (74-106) mg/dL POC Glucometer (74 to 106) mg/dL Lactic Acid (0.4-2.0) Calcium 8.7 (8.4-10.2) mg/dL Magnesium 2.0 (1.6-2.3) mg/dL Total Bilirubin 0.80 (0.2-1.3) mg/dL AST 145 H (17-59) U/L ALT 61 H (0-50) U/L Alkaline Phosphatase 116 (38-126) U/L Serum Total Protein 7.7 (6.3-8.2) g/dL Albumin 4.3 (3.5-5.0) g/dL Prealbumin (17.6-36.0) mg/dL Amylase 48 (30-110) U/L Lipase 86 (23-300) U/L Procalcitonin (0.030-0.080) ng/mL Urine Color (Yellow) Urine Appearance (Clear) Urine pH (4.6-8.0) Ur Specific [place] (1.005-1.030) Urine Protein (Negative) Urine Glucose (UA) (Negative) mg/dL Urine Ketones (Negative) Urine Blood (Negative) Urine Nitrite (Negative) Urine Bilirubin (Negative) Urine Urobilinogen (0.2) mg/dL Ur Leukocyte Esterase (Negative) U Hyaline Cast (Auto) (0-2) /LPF Urine Microscopic RBC (0-5) /HPF Urine Microscopic WBC (0-5) /HPF Ur Epithelial Cells (None Seen) /HPF Urine Bacteria (None Seen) /HPF Urine Culture Reflexed (NO) Urine Opiates Level (NEGATIVE) Ur Methadone (NEGATIVE) Urine Barbiturates (NEGATIVE) Ur Phencyclidine (PCP) (NEGATIVE) Urine Amphetamine (NEGATIVE) U Benzodiazepine Level (NEGATIVE) Urine Cocaine (NEGATIVE) Urine Marijuana (THC) (NEGATIVE) Ethyl Alcohol 294 H (0-10) mg/dL Influenza Type A Ag (NEGATIVE) Influenza Type B Ag (NEGATIVE) RSV (PCR) (NEGATIVE) SARS-CoV-2 (PCR) (NEGATIVE) 03/23/23 03/23/23 03/23/23 Range/Units 13:13 13:51 13:51 WBC (4.0-10.5) x10^3/uL RBC (4.1-5.6) x10^6/uL Hgb (12.5-18.0) g/dL Hct (42-50) % MCV (78-100) fL MCH (26-32) pg MCHC (32-36) g/dL RDW (11.5-14.0) % Plt Count (150-450) x10^3/uL MPV (7.5-11.0) fL Gran % (36.0-66.0) % Immature Gran % (Auto) (0.00-0.4) % Nucleat RBC Rel Count (0.00-0.1) % Eos # (Auto) (0-0.5) x10^3/uL Immature Gran # (Auto) (0.00-0.03) x10^3u/L Absolute Lymphs (auto) (1.0-4.6) x10^3/uL Absolute Monos (auto) (0.0-1.3) x10^3/uL Absolute Nucleated RBC (0.00-0.01) x10^3u/L Lymphocytes % (24.0-44.0) % Monocytes % (0.0-12.0) % Eosinophils % (0.00-5.0) % Basophils % (0.0-0.4) % Absolute Granulocytes (1.4-6.9) x10^3/uL Basophils # (0-0.4) x10^3/uL ESR (0-15) mm/hr Sodium (137-145) mmol/L Potassium (3.5-5.1) mmol/L Chloride (98-107) mmol/L Carbon Dioxide (22-30) mmol/L Anion Gap (5-15) MEQ/L BUN (9-20) mg/dL Creatinine (0.66-1.25) mg/dL Estimated GFR ML/MIN Glucose (74-106) mg/dL POC Glucometer (74 to 106) mg/dL Lactic Acid (0.4-2.0) Calcium (8.4-10.2) mg/dL Magnesium (1.6-2.3) mg/dL Total Bilirubin (0.2-1.3) mg/dL AST (17-59) U/L ALT (0-50) U/L Alkaline Phosphatase (38-126) U/L Serum Total Protein (6.3-8.2) g/dL Albumin (3.5-5.0) g/dL Prealbumin (17.6-36.0) mg/dL Amylase (30-110) U/L Lipase (23-300) U/L Procalcitonin 0.152 H (0.030-0.080) ng/mL Urine Color Yellow (Yellow) Urine Appearance Clear (Clear) Urine pH 6.0 (4.6-8.0) Ur Specific [place] 1.010 (1.005-1.030) Urine Protein 30 (Negative) Urine Glucose (UA) Negative (Negative) mg/dL Urine Ketones Negative (Negative) Urine Blood Small A (Negative) Urine Nitrite Negative (Negative) Urine Bilirubin Negative (Negative) Urine Urobilinogen 1.0 A (0.2) mg/dL Ur Leukocyte Esterase Negative (Negative) U Hyaline Cast (Auto) 3-5 A (0-2) /LPF Urine Microscopic RBC 0-2 (0-5) /HPF Urine Microscopic WBC 0-2 (0-5) /HPF Ur Epithelial Cells None Seen (None Seen) /HPF Urine Bacteria None Seen (None Seen) /HPF Urine Culture Reflexed YES (NO) Urine Opiates Level NEGATIVE (NEGATIVE) Ur Methadone NEGATIVE (NEGATIVE) Urine Barbiturates NEGATIVE (NEGATIVE) Ur Phencyclidine (PCP) NEGATIVE (NEGATIVE) Urine Amphetamine NEGATIVE (NEGATIVE) U Benzodiazepine Level POSITIVE (NEGATIVE) Urine Cocaine NEGATIVE (NEGATIVE) Urine Marijuana (THC) NEGATIVE (NEGATIVE) Ethyl Alcohol (0-10) mg/dL Influenza Type A Ag (NEGATIVE) Influenza Type B Ag (NEGATIVE) RSV (PCR) (NEGATIVE) SARS-CoV-2 (PCR) (NEGATIVE) 03/23/23 03/23/23 03/23/23 Range/Units 15:05 16:30 16:40 WBC (4.0-10.5) x10^3/uL RBC (4.1-5.6) x10^6/uL Hgb (12.5-18.0) g/dL Hct (42-50) % MCV (78-100) fL MCH (26-32) pg MCHC (32-36) g/dL RDW (11.5-14.0) % Plt Count (150-450) x10^3/uL MPV (7.5-11.0) fL Gran % (36.0-66.0) % Immature Gran % (Auto) (0.00-0.4) % Nucleat RBC Rel Count (0.00-0.1) % Eos # (Auto) (0-0.5) x10^3/uL Immature Gran # (Auto) (0.00-0.03) x10^3u/L Absolute Lymphs (auto) (1.0-4.6) x10^3/uL Absolute Monos (auto) (0.0-1.3) x10^3/uL Absolute Nucleated RBC (0.00-0.01) x10^3u/L Lymphocytes % (24.0-44.0) % Monocytes % (0.0-12.0) % Eosinophils % (0.00-5.0) % Basophils % (0.0-0.4) % Absolute Granulocytes (1.4-6.9) x10^3/uL Basophils # (0-0.4) x10^3/uL ESR (0-15) mm/hr Sodium (137-145) mmol/L Potassium (3.5-5.1) mmol/L Chloride (98-107) mmol/L Carbon Dioxide (22-30) mmol/L Anion Gap (5-15) MEQ/L BUN (9-20) mg/dL Creatinine (0.66-1.25) mg/dL Estimated GFR ML/MIN Glucose (74-106) mg/dL POC Glucometer (74 to 106) mg/dL Lactic Acid 3.9 H (0.4-2.0) Calcium (8.4-10.2) mg/dL Magnesium (1.6-2.3) mg/dL Total Bilirubin (0.2-1.3) mg/dL AST (17-59) U/L ALT (0-50) U/L Alkaline Phosphatase (38-126) U/L Serum Total Protein (6.3-8.2) g/dL Albumin (3.5-5.0) g/dL Prealbumin 11.28 L (17.6-36.0) mg/dL Amylase (30-110) U/L Lipase (23-300) U/L Procalcitonin (0.030-0.080) ng/mL Urine Color (Yellow) Urine Appearance (Clear) Urine pH (4.6-8.0) Ur Specific [place] (1.005-1.030) Urine Protein (Negative) Urine Glucose (UA) (Negative) mg/dL Urine Ketones (Negative) Urine Blood (Negative) Urine Nitrite (Negative) Urine Bilirubin (Negative) Urine Urobilinogen (0.2) mg/dL Ur Leukocyte Esterase (Negative) U Hyaline Cast (Auto) (0-2) /LPF Urine Microscopic RBC (0-5) /HPF Urine Microscopic WBC (0-5) /HPF Ur Epithelial Cells (None Seen) /HPF Urine Bacteria (None Seen) /HPF Urine Culture Reflexed (NO) Urine Opiates Level (NEGATIVE) Ur Methadone (NEGATIVE) Urine Barbiturates (NEGATIVE) Ur Phencyclidine (PCP) (NEGATIVE) Urine Amphetamine (NEGATIVE) U Benzodiazepine Level (NEGATIVE) Urine Cocaine (NEGATIVE) Urine Marijuana (THC) (NEGATIVE) Ethyl Alcohol (0-10) mg/dL Influenza Type A Ag NEGATIVE (NEGATIVE) Influenza Type B Ag NEGATIVE (NEGATIVE) RSV (PCR) NEGATIVE (NEGATIVE) SARS-CoV-2 (PCR) NEGATIVE (NEGATIVE) 03/23/23 03/23/23 03/23/23 Range/Units 17:05 18:09 20:55 WBC (4.0-10.5) x10^3/uL RBC (4.1-5.6) x10^6/uL Hgb (12.5-18.0) g/dL Hct (42-50) % MCV (78-100) fL MCH (26-32) pg MCHC (32-36) g/dL RDW (11.5-14.0) % Plt Count (150-450) x10^3/uL MPV (7.5-11.0) fL Gran % (36.0-66.0) % Immature Gran % (Auto) (0.00-0.4) % Nucleat RBC Rel Count (0.00-0.1) % Eos # (Auto) (0-0.5) x10^3/uL Immature Gran # (Auto) (0.00-0.03) x10^3u/L Absolute Lymphs (auto) (1.0-4.6) x10^3/uL Absolute Monos (auto) (0.0-1.3) x10^3/uL Absolute Nucleated RBC (0.00-0.01) x10^3u/L Lymphocytes % (24.0-44.0) % Monocytes % (0.0-12.0) % Eosinophils % (0.00-5.0) % Basophils % (0.0-0.4) % Absolute Granulocytes (1.4-6.9) x10^3/uL Basophils # (0-0.4) x10^3/uL ESR (0-15) mm/hr Sodium (137-145) mmol/L Potassium 3.2 L 3.6 (3.5-5.1) mmol/L Chloride (98-107) mmol/L Carbon Dioxide (22-30) mmol/L Anion Gap (5-15) MEQ/L BUN (9-20) mg/dL Creatinine (0.66-1.25) mg/dL Estimated GFR ML/MIN Glucose (74-106) mg/dL POC Glucometer 165 H (74 to 106) mg/dL Lactic Acid (0.4-2.0) Calcium (8.4-10.2) mg/dL Magnesium (1.6-2.3) mg/dL Total Bilirubin (0.2-1.3) mg/dL AST (17-59) U/L ALT (0-50) U/L Alkaline Phosphatase (38-126) U/L Serum Total Protein (6.3-8.2) g/dL Albumin (3.5-5.0) g/dL Prealbumin (17.6-36.0) mg/dL Amylase (30-110) U/L Lipase (23-300) U/L Procalcitonin (0.030-0.080) ng/mL Urine Color (Yellow) Urine Appearance (Clear) Urine pH (4.6-8.0) Ur Specific [place] (1.005-1.030) Urine Protein (Negative) Urine Glucose (UA) (Negative) mg/dL Urine Ketones (Negative) Urine Blood (Negative) Urine Nitrite (Negative) Urine Bilirubin (Negative) Urine Urobilinogen (0.2) mg/dL Ur Leukocyte Esterase (Negative) U Hyaline Cast (Auto) (0-2) /LPF Urine Microscopic RBC (0-5) /HPF Urine Microscopic WBC (0-5) /HPF Ur Epithelial Cells (None Seen) /HPF Urine Bacteria (None Seen) /HPF Urine Culture Reflexed (NO) Urine Opiates Level (NEGATIVE) Ur Methadone (NEGATIVE) Urine Barbiturates (NEGATIVE) Ur Phencyclidine (PCP) (NEGATIVE) Urine Amphetamine (NEGATIVE) U Benzodiazepine Level (NEGATIVE) Urine Cocaine (NEGATIVE) Urine Marijuana (THC) (NEGATIVE) Ethyl Alcohol (0-10) mg/dL Influenza Type A Ag (NEGATIVE) Influenza Type B Ag (NEGATIVE) RSV (PCR) (NEGATIVE) SARS-CoV-2 (PCR) (NEGATIVE) 03/23/23 03/24/23 03/24/23 Range/Units 22:15 05:35 05:38 WBC 8.3 (4.0-10.5) x10^3/uL RBC 3.86 L (4.1-5.6) x10^6/uL Hgb 13.9 (12.5-18.0) g/dL Hct 40.9 L (42-50) % MCV 106.0 H (78-100) fL MCH 36.0 H (26-32) pg MCHC 34.0 (32-36) g/dL RDW 17.6 H (11.5-14.0) % Plt Count 144 L D (150-450) x10^3/uL MPV 9.4 (7.5-11.0) fL Gran % 82.6 H (36.0-66.0) % Immature Gran % (Auto) 0.2 (0.00-0.4) % Nucleat RBC Rel Count 0.0 (0.00-0.1) % Eos # (Auto) 0.01 (0-0.5) x10^3/uL Immature Gran # (Auto) 0.02 (0.00-0.03) x10^3u/L Absolute Lymphs (auto) 0.86 L (1.0-4.6) x10^3/uL Absolute Monos (auto) 0.52 (0.0-1.3) x10^3/uL Absolute Nucleated RBC 0.00 (0.00-0.01) x10^3u/L Lymphocytes % 10.4 L (24.0-44.0) % Monocytes % 6.3 (0.0-12.0) % Eosinophils % 0.1 (0.00-5.0) % Basophils % 0.4 (0.0-0.4) % Absolute Granulocytes 6.86 (1.4-6.9) x10^3/uL Basophils # 0.03 (0-0.4) x10^3/uL ESR (0-15) mm/hr Sodium (137-145) mmol/L Potassium (3.5-5.1) mmol/L Chloride (98-107) mmol/L Carbon Dioxide (22-30) mmol/L Anion Gap (5-15) MEQ/L BUN (9-20) mg/dL Creatinine (0.66-1.25) mg/dL Estimated GFR ML/MIN Glucose (74-106) mg/dL POC Glucometer 140 H (74 to 106) mg/dL Lactic Acid 1.1 (0.4-2.0) Calcium (8.4-10.2) mg/dL Magnesium (1.6-2.3) mg/dL Total Bilirubin (0.2-1.3) mg/dL AST (17-59) U/L ALT (0-50) U/L Alkaline Phosphatase (38-126) U/L Serum Total Protein (6.3-8.2) g/dL Albumin (3.5-5.0) g/dL Prealbumin (17.6-36.0) mg/dL Amylase (30-110) U/L Lipase (23-300) U/L Procalcitonin (0.030-0.080) ng/mL Urine Color (Yellow) Urine Appearance (Clear) Urine pH (4.6-8.0) Ur Specific [place] (1.005-1.030) Urine Protein (Negative) Urine Glucose (UA) (Negative) mg/dL Urine Ketones (Negative) Urine Blood (Negative) Urine Nitrite (Negative) Urine Bilirubin (Negative) Urine Urobilinogen (0.2) mg/dL Ur Leukocyte Esterase (Negative) U Hyaline Cast (Auto) (0-2) /LPF Urine Microscopic RBC (0-5) /HPF Urine Microscopic WBC (0-5) /HPF Ur Epithelial Cells (None Seen) /HPF Urine Bacteria (None Seen) /HPF Urine Culture Reflexed (NO) Urine Opiates Level (NEGATIVE) Ur Methadone (NEGATIVE) Urine Barbiturates (NEGATIVE) Ur Phencyclidine (PCP) (NEGATIVE) Urine Amphetamine (NEGATIVE) U Benzodiazepine Level (NEGATIVE) Urine Cocaine (NEGATIVE) Urine Marijuana (THC) (NEGATIVE) Ethyl Alcohol (0-10) mg/dL Influenza Type A Ag (NEGATIVE) Influenza Type B Ag (NEGATIVE) RSV (PCR) (NEGATIVE) SARS-CoV-2 (PCR) (NEGATIVE) 03/24/23 Range/Units 05:38 WBC (4.0-10.5) x10^3/uL RBC (4.1-5.6) x10^6/uL Hgb (12.5-18.0) g/dL Hct (42-50) % MCV (78-100) fL MCH (26-32) pg MCHC (32-36) g/dL RDW (11.5-14.0) % Plt Count (150-450) x10^3/uL MPV (7.5-11.0) fL Gran % (36.0-66.0) % Immature Gran % (Auto) (0.00-0.4) % Nucleat RBC Rel Count (0.00-0.1) % Eos # (Auto) (0-0.5) x10^3/uL Immature Gran # (Auto) (0.00-0.03) x10^3u/L Absolute Lymphs (auto) (1.0-4.6) x10^3/uL Absolute Monos (auto) (0.0-1.3) x10^3/uL Absolute Nucleated RBC (0.00-0.01) x10^3u/L Lymphocytes % (24.0-44.0) % Monocytes % (0.0-12.0) % Eosinophils % (0.00-5.0) % Basophils % (0.0-0.4) % Absolute Granulocytes (1.4-6.9) x10^3/uL Basophils # (0-0.4) x10^3/uL ESR (0-15) mm/hr Sodium 135 L (137-145) mmol/L Potassium 4.0 (3.5-5.1) mmol/L Chloride 102 (98-107) mmol/L Carbon Dioxide 26 (22-30) mmol/L Anion Gap 10.6 (5-15) MEQ/L BUN 8 L (9-20) mg/dL Creatinine 0.69 (0.66-1.25) mg/dL Estimated GFR > 60.0 ML/MIN Glucose 103 (74-106) mg/dL POC Glucometer (74 to 106) mg/dL Lactic Acid (0.4-2.0) Calcium 7.7 L (8.4-10.2) mg/dL Magnesium (1.6-2.3) mg/dL Total Bilirubin 0.90 (0.2-1.3) mg/dL AST 114 H (17-59) U/L ALT 48 (0-50) U/L Alkaline Phosphatase 93 (38-126) U/L Serum Total Protein 6.2 L (6.3-8.2) g/dL Albumin 3.3 L (3.5-5.0) g/dL Prealbumin (17.6-36.0) mg/dL Amylase (30-110) U/L Lipase (23-300) U/L Procalcitonin (0.030-0.080) ng/mL Urine Color (Yellow) Urine Appearance (Clear) Urine pH (4.6-8.0) Ur Specific [place] (1.005-1.030) Urine Protein (Negative) Urine Glucose (UA) (Negative) mg/dL Urine Ketones (Negative) Urine Blood (Negative) Urine Nitrite (Negative) Urine Bilirubin (Negative) Urine Urobilinogen (0.2) mg/dL Ur Leukocyte Esterase (Negative) U Hyaline Cast (Auto) (0-2) /LPF Urine Microscopic RBC (0-5) /HPF Urine Microscopic WBC (0-5) /HPF Ur Epithelial Cells (None Seen) /HPF Urine Bacteria (None Seen) /HPF Urine Culture Reflexed (NO) Urine Opiates Level (NEGATIVE) Ur Methadone (NEGATIVE) Urine Barbiturates (NEGATIVE) Ur Phencyclidine (PCP) (NEGATIVE) Urine Amphetamine (NEGATIVE) U Benzodiazepine Level (NEGATIVE) Urine Cocaine (NEGATIVE) Urine Marijuana (THC) (NEGATIVE) Ethyl Alcohol (0-10) mg/dL Influenza Type A Ag (NEGATIVE) Influenza Type B Ag (NEGATIVE) RSV (PCR) (NEGATIVE) SARS-CoV-2 (PCR) (NEGATIVE) Micro Results-Entire Visit: Accuchecks Date 03/24/23 Date 03/23/23 Date 03/23/23 Time 06:51 Time 22:22 Time 18:13 - Radiology Exams Ordered Rad Exams-Entire Visit: Radiology Procedures Category Date Time Status CHEST 1 VIEW (PORTABLE) Stat Exams 03/23/23 16:09 Completed VENOUS UNILAT/LIMITED EXTREMIT [US] Stat Exams 03/23/23 12:59 Completed - Procedures and Test Procedures and Tests throughout Hospitalization: Therapy Orders & Screens 03/23/23 16:24 Respiratory Therapy Consult ONCE Comment: Reason For Exam: Diagnosis: left leg cellulitis, alcohol intoxication, chronic DVT 03/23/23 18:09 OT Screen per Nursing Assess ONCE Comment: Protocol Order Physician Instructions: Greater than 3 points order OT Admission Screening Reason For Exam: Triggered on Admission Diagnosis: left leg cellulitis, alcohol intoxication, chronic DVT Open Wound/Cellutlitis/Pressure Ulcers: Yes Acute Fx/ORIF/Change in wt bearing status: No Severe MUSCULOSKELETAL pain: No ADL Dysfunction: Yes Acute CVA w/Hemiparesis/Hemiplegia: No Decreased Functional Mobility/Strength: Yes Sprain/Strain: No Acute Post-op Mobility Dysfunction: No Total Points: 9 PT Screen per Nursing Assess ONCE Comment: Protocol Order Physician Instructions: Greater than 3 points order PT Admission Screenin Reason For Exam: Triggered on Admission Diagnosis: left leg cellulitis, alcohol intoxication, chronic DVT Open Wound/Cellutlitis/Pressure Ulcers: Yes Acute Fx/ORIF/Change in wt bearing status: No Severe MUSCULOSKELETAL pain: No ADL Dysfunction: Yes Acute CVA w/Hemiparesis/Hemiplegia: No Decreased Functional Mobility/Strength: Yes Sprain/Strain: No Acute Post-op Mobility Dysfunction: No Total Points: 9 Smoking Cessation Education ONCE Comment: Diagnosis: left leg cellulitis, alcohol intoxication, chronic DVT Smoking Status: Current every day smoker How long have you smoked: "40 years" Have you smoked in the past 12 months: Yes Approximately how many cigarettes per day: 10 Do you dip or chew tobacco: No 03/23/23 18:27 OT Screen per Nursing Assess ONCE Comment: Protocol Order Physician Instructions: Greater than 3 points order OT Admission Screening Reason For Exam: Triggered on Admission Diagnosis: left leg cellulitis, alcohol intoxication, chronic DVT Open Wound/Cellutlitis/Pressure Ulcers: Yes Acute Fx/ORIF/Change in wt bearing status: No Severe MUSCULOSKELETAL pain: No ADL Dysfunction: Yes Acute CVA w/Hemiparesis/Hemiplegia: No Decreased Functional Mobility/Strength: Yes Sprain/Strain: No Acute Post-op Mobility Dysfunction: No Total Points: 9 PT Screen per Nursing Assess ONCE Comment: Protocol Order Physician Instructions: Greater than 3 points order PT Admission Screenin Reason For Exam: Triggered on Admission Diagnosis: left leg cellulitis, alcohol intoxication, chronic DVT Open Wound/Cellutlitis/Pressure Ulcers: Yes Acute Fx/ORIF/Change in wt bearing status: No Severe MUSCULOSKELETAL pain: No ADL Dysfunction: Yes Acute CVA w/Hemiparesis/Hemiplegia: No Decreased Functional Mobility/Strength: Yes Sprain/Strain: No Acute Post-op Mobility Dysfunction: No Total Points: 9 Smoking Cessation Education ONCE Comment: Diagnosis: left leg cellulitis, alcohol intoxication, chronic DVT Smoking Status: Current every day smoker How long have you smoked: "40 years" Have you smoked in the past 12 months: Yes Approximately how many cigarettes per day: 10 Do you dip or chew tobacco: No 03/23/23 19:18 Respiratory Therapy Assessment DAILY Comment: Diagnosis: left leg cellulitis, alcohol intoxication, chronic DVT Discharge Exam General Appearance: no apparent distress Neurologic Exam: alert, oriented x 3, cooperative Eye Exam: PERRL Ears, Nose, Throat Exam: normal ENT inspection Neck Exam: normal inspection Respiratory Exam: crackles/rales Cardiovascular Exam: regular rate/rhythm, normal heart sounds Gastrointestinal/Abdomen Exam: soft, normal bowel sounds Male Genitalia Exam: deferred Rectal Exam: deferred Extremity Exam: inflammation, swelling, tenderness Skin Exam: other ((LLE and RLE with multiple abrasions and edema, L>R, LLE with erythema noted on the lateral foot, calf, and sherwood)) Final Diagnosis/Problem List - Final Discharge Diagnosis/Problem (1) Sepsis Current Visit: Yes Status: Acute (2) Cellulitis of left leg without foot Current Visit: Yes Status: Acute Code(s): L03.116 - CELLULITIS OF LEFT LOWER LIMB (3) Hypokalemia Current Visit: Yes Status: Acute Code(s): E87.6 - HYPOKALEMIA (4) Leukocytosis Current Visit: Yes Status: Acute Code(s): D72.829 - ELEVATED WHITE BLOOD CELL COUNT, UNSPECIFIED (5) Acute alcohol intoxication Current Visit: Yes Status: Acute Code(s): F10.929 - ALCOHOL USE, UNSPECIFIED WITH INTOXICATION, UNSPECIFIED (6) DVT of popliteal vein Current Visit: Yes Status: Chronic Code(s): I82.439 - ACUTE EMBOLISM AND THROMBOSIS OF UNSPECIFIED POPLITEAL VEIN (7) Seizure disorder, convulsive, with status epilepticus Current Visit: No Status: Chronic Code(s): G40.301 - GEN IDIOPATHIC EPILEPSY, NOT INTRACTABLE, W STAT EPI (8) Shortness of breath Current Visit: No Status: Chronic Code(s): R06.02 - SHORTNESS OF BREATH (9) Heart failure with reduced ejection fraction Current Visit: Yes Status: Chronic Code(s): I50.20 - UNSPECIFIED SYSTOLIC (CONGESTIVE) HEART FAILURE - Discharge Disposition: Home, Self-Care Condition: Fair Prescriptions: New Apixaban [Eliquis 2.5 mg Tablet] 5 mg PO BID 30 Days #60 tablet Folic Acid 1 mg [Folate 1 mg] 1 mg PO DAILY 30 Days #30 tablet Multivitamins,Therapeutic Tab* [Theragran Multivitamin] 1 tab PO QAM 30 Days #30 tablet Thiamine HCl 100 mg [Vitamin B-1 100 mg] 50 mg PO DAILY 30 Days #15 tablet Furosemide 20 mg [Lasix 20 mg] 20 mg PO DAILY 30 Days #30 tablet Cefdinir 300 mg PO BID 10 Days #20 cap Doxycycline Hyclate 100 mg [Vibramycin 100 MG] 100 mg PO BID 10 Days #20 tab Continue Amlodipine Besylate 5 mg [Norvasc 5 mg] 5 mg PO BID Gemfibrozil [Lopid] 600 mg PO BID levETIRAcetam [Keppra] 750 mg PO BID Losartan Potassium [Cozaar] 100 mg PO DAILY Omeprazole 20 mg PO DAILY Potassium Chloride Tab* [Klor Con] 10 meq PO DAILY #5 tab Clonidine HCl 0.1 mg [Clonidine 0.1 mg Tablet] 0.1 mg PO BID Albuterol Sulfate Mdi [ALBUTEROL/Proair Hfa MDI] 2 puff IH QID Nitroglycerin 0.4 mg Tablet [Nitrostat 0.4 MG Tablet] 0.4 mg SL Q5MIN PRN MR X 3 PRN PRN Reason: Chest Pain Gabapentin [Neurontin ] 100 mg PO TID Escitalopram Oxalate [Lexapro] 20 mg PO DAILY Follow up with: AXEL CISNEROS [Primary Care Provider] - Call for Appointment (in 3-5 days)
[2023-03-24 12:01] VITALS: PULSE 92; O2SAT 91
== END 2023-03-24 11:49 | disposition home or self-care (01) ==
LOC: ED 12:53 → MED SURG 15:01
PROVIDERS: ADMIT Internal Medicine; ATTEND Internal Medicine
DX: A41.9 Sepsis, unspecified organism (principal); L03.116 Cellulitis of left lower limb; M79.662 Pain in left lower leg; E87.6 Hypokalemia; I82.432 Acute embolism and thrombosis of left popliteal vein; I11.0 Hypertensive heart disease with heart failure; I50.20 Unspecified systolic (congestive) heart failure; G40.301 Generalized idiopathic epilepsy and epileptic syndromes, not intractable, with status epilepticus; Z79.899 Other long term (current) drug therapy; F10.929 Alcohol use, unspecified with intoxication, unspecified; D72.829 Elevated white blood cell count, unspecified
CPT/HCPCS: 0241U; 36000; 36415; 71045; 80053; 80307; 81001; 82077; 82150; 82947; 83605; 83690; 83735; 84132; 84134; 84145; 85025; 85652; 86140; 87040; 87086; 93041; 93268; 93971; 94640; 94760; 96360; 96361; 96365; 96367; 96372; 99285; 99291; G0378; Q3014; J0696; J1650; J1940; A9270-GY; J3370

== ENCOUNTER 2023-06-20 13:39 | Observation (INO) | payer MEDICARE ==
[2023-06-20] MEDS ORDERED: Zofran 4 MG/2 ML VIAL IV ONE (13:41)
[2023-06-20] MEDS ORDERED: Sodium Chloride 0.9% 1000 ML 1,000 ML IV STA (13:41)
[2023-06-20 13:43] LABS: A-aADO2 473; ABG POTASSIUM 3.7 (3.5-5.1); ARTERIAL BLD GAS O2 SATURATION 99.8 % (95-100); ARTERIAL BLOOD GAS BASE EXCESS -5.6 (-2.0-2.0); ARTERIAL BLOOD GAS FIO2 100 %; ARTERIAL BLOOD GAS PCO2 49 mmHg (35-45); ARTERIAL BLOOD GAS PO2 179 mmHg (75-100); ARTERIAL BLOOD GAS pH 7.26 (7.35-7.45); CARBOXYHEMOGLOBIN 4.9 % THgb (0.0-6.9); HGB O2 SAT 93.7 g/dF (94-100); Lactic Acid 3.8 (0.4-2.0); Methhemoglobin 1.2 % (1.4-1.5); paO2 pAO1 0.27
[2023-06-20 13:44] LABS: ABG SITE RIGHT BRACHIAL
[2023-06-20] MEDS ORDERED: Keppra 500 MG/5 ML*** 1,000 MG in D5w 100ML Mini Bag 100 ML 100 ML IV ONE (13:44)
[2023-06-20] MEDS ORDERED: Keppra 500 MG/5 ML ONE (13:47)
[2023-06-20] MEDS ORDERED: Zofran 4 MG/2 ML VIAL ONE (13:47)
[2023-06-20] MEDS ORDERED: Sodium Chloride 0.9% 1000 ML 1,000 ML ONE (13:48)
[2023-06-20] MEDS ORDERED: D5w 100ML Mini Bag 100 ML 100 ML IV ONE (13:48)
[2023-06-20 13:51] LABS: Absolute Neutrophil Ct (ANC) 5.55 x10^3/uL (1.4-6.9); BASOPHIL % 0.7 % (0.0-0.4); Basophil (Absolute #) 0.07 x10^3/uL (0-0.4); Eosinophil % 0.9 % (0.00-5.0); Eosinophil (Absolute #) 0.09 x10^3/uL (0-0.5); Hematocrit 56.4 % (42-50); IMMATURE GRAN # 0.02 x10^3u/L (0.00-0.03); IMMATURE GRAN % 0.2 % (0.00-0.4); Lymphocyte (Absolute #) 3.23 x10^3/uL (1.0-4.6); Mean Corpuscular Hemoglobin 33.8 pg (26-32); Mean Corpuscular Hgb Concent. 31.9 g/dL (32-36); Mean Platelet Volume 9.6 fL (7.5-11.0); Monocyte (Absolute #) 0.55 x10^3/uL (0.0-1.3); Monocytes % 5.8 % (0.0-12.0); Neutrophil % 58.4 % (36.0-66.0); Platelet Count 291 x10^3/uL (150-450); Red Blood Count 5.32 x10^6/uL (4.1-5.6); Red Cell Distribution Width 16.7 % (11.5-14.0); White Blood Count 9.5 x10^3/uL (4.0-10.5)
--- NOTE | 2023-06-20 13:57 | XRAY ---
Indication: Unresponsive. Comparison: March 23, 2023 Portable chest demonstrates new small focus left base infiltrate versus atelectasis. Stable left upper lung calcified granuloma. Remaining heart and lungs unremarkable. Bony thorax intact again with osteopenia and mild degenerative changes.
[2023-06-20 14:03] LABS: ALBUMIN 4.6 g/dL (3.5-5.0); ALKALINE PHOSPHATASE 114 U/L (38-126); ANION GAP 21.3 MEQ/L (5-15); BLOOD UREA NITROGEN 17 mg/dL (9-20); CHLORIDE 108 mmol/L (98-107); Calcium 9.1 mg/dL (8.4-10.2); Carbon Dioxide 19 mmol/L (22-30); EST GLOMERULAR FILTRATION RATE 70.1 ML/MIN; Glucose 90 mg/dL (74-106); Potassium 3.9 mmol/L (3.5-5.1); SALICYLATE < 1.0 mg/dL (2-20); SGOT/AST 54 U/L (17-59); SGPT/ALT 35 U/L (0-50); SODIUM 144 mmol/L (137-145); Total Protein 8.2 g/dL (6.3-8.2)
--- NOTE | 2023-06-20 14:15 | XRAY ---
Indication: Unresponsive. Multiple contiguous axial images obtained through the head without contrast. Comparison: March 10, 2023 Again age-appropriate global atrophy, moderate periventricular degenerative micro-ischemia bilaterally, remote bifrontal lobe infarcts, and remote lacunar infarct left basal ganglia. No acute intracranial hemorrhage, abnormal extra-axial fluid collection, or mass effect. Fourth ventricle is midline without hydrocephalus. Bony calvarium intact. Again small fluid leveling left maxillary sinus. Remaining visualized paranasal sinuses are clear. Mastoid air cells are clear. 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 Again incidental left maxillary sinus disease.
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
[2023-06-20 15:11] LABS: Appearance Clear (Clear); Bacteria None Seen /HPF (None Seen); Bilirubin Negative (Negative); Blood Negative (Negative); Epithelial Cells None Seen /HPF (None Seen); Glucose, Urine Negative (Negative); Hyaline Casts NONE SEEN /LPF (0-2); Ketones Negative (Negative); Leukocyte Esterase Negative (Negative); Nitrite Negative (Negative); Protein,Urine Dip Trace (Negative); RBC 0-2 /HPF (0-5); Specific Gravity <=1.005 (1.005-1.030); Urobilinogen 0.2 mg/dL (0.2); WBC 0-2 /HPF (0-5)
[2023-06-20 15:12] LABS: INFLUENZA A NEGATIVE (NEGATIVE); INFLUENZA B NEGATIVE (NEGATIVE); RESPIRATORY SYNCTIAL VIRUS NEGATIVE (NEGATIVE); SARS-CoV-2 Xpert Express NEGATIVE (NEGATIVE)
[2023-06-20 15:12] LABS: ADD URINE CULTURE? ORDERED SEPARATELY (NO)
[2023-06-20 15:22] LABS: Amphetamine,Urine NEGATIVE (NEGATIVE); Barbiturate,Urine NEGATIVE (NEGATIVE); Benzodiazepine,Urine NEGATIVE (NEGATIVE); Cocaine,Urine NEGATIVE (NEGATIVE); Methadone,Urine NEGATIVE (NEGATIVE); Opiate,Urine NEGATIVE (NEGATIVE); PCP,Urine NEGATIVE (NEGATIVE); THC,Urine NEGATIVE (NEGATIVE)
[2023-06-20 16:18] LABS: A-aADO2 132; ABG HEMOGLOBIN 17.9; ABG POTASSIUM 3.7 (3.5-5.1); ARTERIAL BLD GAS O2 SATURATION 96.8 % (95-100); ARTERIAL BLOOD GAS BASE EXCESS -6.2 (-2.0-2.0); ARTERIAL BLOOD GAS FIO2 40 %; ARTERIAL BLOOD GAS PCO2 51 mmHg (35-45); ARTERIAL BLOOD GAS PO2 89 mmHg (75-100); ARTERIAL BLOOD GAS pH 7.24 (7.35-7.45); CARBOXYHEMOGLOBIN 3.2 % THgb (0.0-6.9); HCO3- 21.9 (22-28); HGB O2 SAT 92.8 g/dF (94-100); Lactic Acid 2.7 (0.4-2.0); Methhemoglobin 0.9 % (1.4-1.5)
[2023-06-20 16:19] LABS: ABG SITE RIGHT RADIAL
[2023-06-20] MEDS ORDERED: Zithromax 500 MG/ 250 ML NaCl Premix 500 MG/250 ML IVPB IV STA (16:29)
[2023-06-20] MEDS ORDERED: ROCEPHIN 2 Gm-D5w 50ML BAG** 2 G/50 ML IVPB IV STA (16:29)
[2023-06-20] MEDS ORDERED: THIAMINE 200 MG/2 ML*** 100 MG, Vitamins For Infusion 10 ML INJECTION*** 10 ML, FOLNATE... IV SCH ×4 (16:30)
[2023-06-20] MEDS ORDERED: THIAMINE 200 MG/2 ML IV ONE (16:34)
[2023-06-20] MEDS ORDERED: ROCEPHIN 2 Gm-D5w 50ML BAG** 2 G/50 ML IVPB IV ONE (16:43)
[2023-06-20] MEDS ORDERED: Zithromax 500 MG/ 250 ML NaCl Premix 500 MG/250 ML IVPB IV ONE (16:43)
[2023-06-20] MEDS ORDERED: THIAMINE 200 MG/2 ML ONE (16:49)
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
[2023-06-20] MEDS ORDERED: VALIUM 10 MG/2 ML SYRINGE IV PRN (18:11)
[2023-06-20] MEDS ORDERED: Compazine 10 MG/2 ML IM PRN (18:19)
[2023-06-20] MEDS ORDERED: PROTONIX 40 MG IV IV SCH (18:30)
[2023-06-20] MEDS ORDERED: Nicoderm CQ 21 MG TOP SCH (18:30)
[2023-06-20] MEDS ORDERED: VENTOLIN COMMON CANISTER IH PRN (20:23)
[2023-06-20] MEDS ORDERED: Keppra 250 MG ONE (21:50)
[2023-06-20] MEDS: ELIQUIS 2.5 MG TABLET PO SCH (21:54)
[2023-06-20] MEDS: Keppra 250 MG PO SCH (21:58)
[2023-06-20] MEDS ORDERED: NON-FORMULARY ITEM (Levetiracetam [Keppra] 750 MG Tablet) PO SCH (22:00)
[2023-06-21 05:03] LABS: Hematocrit 44.6 % (42-50); Hemoglobin 14.3 g/dL (12.5-18.0); Mean Cell Volume 104.9 fL (78-100); Mean Corpuscular Hemoglobin 33.6 pg (26-32); Mean Corpuscular Hgb Concent. 32.1 g/dL (32-36); Mean Platelet Volume 9.4 fL (7.5-11.0); Platelet Count 218 x10^3/uL (150-450); Red Blood Count 4.25 x10^6/uL (4.1-5.6); White Blood Count 6.4 x10^3/uL (4.0-10.5)
[2023-06-21 05:34] LABS: ALBUMIN 3.6 g/dL (3.5-5.0); ANION GAP 13.2 MEQ/L (5-15); BILIRUBIN,TOTAL 0.4 mg/dL (0.2-1.3); Calcium 8.2 mg/dL (8.4-10.2); Creatinine 1 0.95 mg/dL (0.66-1.25); EST GLOMERULAR FILTRATION RATE 92.8 ML/MIN; Potassium 3.4 mmol/L (3.5-5.1); Total Protein 6.3 g/dL (6.3-8.2)
[2023-06-21] MEDS ORDERED: Klor Con PO ONE (08:15)
[2023-06-21] MEDS ORDERED: VITAMIN B-1 100 MG PO SCH (10:00)
[2023-06-21] MEDS ORDERED: THERAGRAN MULTIVITAMIN PO SCH (10:00)
[2023-06-21] MEDS ORDERED: ROCEPHIN 1 Gm-D5w 50 ml Bag** 1 G/50 ML IVPB IV SCH (10:00)
[2023-06-21] MEDS ORDERED: FOLATE 1 MG PO SCH (10:00)
[2023-06-21] MEDS: ELIQUIS 2.5 MG TABLET PO SCH (10:45)
[2023-06-21] MEDS: Keppra 250 MG PO SCH (10:46)
[2023-06-21] MEDS ORDERED: VALIUM 10 MG/2 ML SYRINGE IV PRN (11:10)
[2023-06-21 11:53] VITALS: O2SAT 99
--- NOTE | 2023-06-21 13:12 | PCM.DS ---
Discharge Summary Date of Admission: 06/20/23 17:24 Date of Discharge: 06/21/23 Admitting Physician: MADHAV LAROSE MD Primary Care Provider: AXEL CISNEROS Allergies Allergies No Known Drug Allergies Allergy (Verified 03/23/23 12:55) Hospital Summary - Hospital Course Hospital Course: 06/20/23 Mr.MERKLEY LAWSON is a 58 year old male with PMHX of HTN, hyperlipidemia, seizures, depression, seizures, GERD, OA, migraines, CA, asthma, sleep apnea, and daily smoker. He was brought in the ER by EMS with complaints of unresponsiveness. As per EMS they were called out for seizure, seizure was stopped on their arrival at the scene but patient was unresponsive, moving extremities intermittently. Patient is on 3LNC at 98% and opening eyes. He is not able to respond to any commands. CT of head negative for any acute process. Chest XR shows left base infiltrate/ atelectasis. Rocephin and azithromycin started in ER. History is limited due to his LOC. BAL 468. Thiamine gave in ER. Lactic acid elevated at 2.7 and 1 liter bolus gave in the ER. Keppra gave in ER for seizure. Will continue with same plan of care and alcohol withdraw protocol. Pt is in the ICU. 06/21/23 Pt is resting in bed. He explains he feels better and wants to go home. Alcohol level at noon < 10. MRI ordered and pending per teleneuro recommendation. MRI reviewed and no new findings seen. He has no deficits and awake and alert today. Discussed chest XR and that he has pneumonia. Will d/c with antibiotics. Nurse was unable to clarify home meds. Pt states he does not take all his meds at home but he does make sure to always take his Keppra. He recently had an appointment with his PCP 2 days ago he reports and she went over his meds with him. He explained he takes so many it's hard to keep track. He is willing to have [facility] some and help with meds. PCP office is closed to go over meds. Can have [facility] help with clarifying meds with PCP and setting up in a information systems planner for pt. He reports he does not have a neurologist. Will make appointment for f/u. CM provided information for [facility] as pt cannot drive now d/t recent seizure. Pt does not have transportation and understands he cannot drive. Discussed the risk in detail. Pt reports he drinks 1 gallon of whiskey daily. Offered rehab and he is not interested in quitting. He denies CP, SOB, abd. pain, N/V/D. - Vitals & Intake/Output Vital Signs: Vital Signs Temperature 99.1 F 06/21/23 03:21 Pulse Rate 86 06/21/23 12:00 Respiratory Rate 18 06/21/23 12:00 Blood Pressure 165/89 06/21/23 11:49 O2 Sat by Pulse Oximetry 99 06/21/23 11:49 Intake & Output: Intake & Output 06/19/23 06/20/23 06/21/23 06/22/23 11:59 11:59 11:59 11:59 Intake Total 960 Output Total 1730 Balance -770 Weight 79.8 kg - Lab Result Diagrams: 06/21/23 04:45 06/21/23 04:45 Lab Results-Last 24 Hrs: Lab Results-Last 24 Hours 06/20/23 06/20/23 06/20/23 Range/Units 13:38 13:40 13:40 WBC 9.5 (4.0-10.5) x10^3/uL RBC 5.32 (4.1-5.6) x10^6/uL Hgb 18.0 (12.5-18.0) g/dL Hct 56.4 H (42-50) % MCV 106.0 H (78-100) fL MCH 33.8 H (26-32) pg MCHC 31.9 L (32-36) g/dL RDW 16.7 H (11.5-14.0) % Plt Count 291 (150-450) x10^3/uL MPV 9.6 (7.5-11.0) fL Gran % 58.4 (36.0-66.0) % Immature Gran % (Auto) 0.2 (0.00-0.4) % Nucleat RBC Rel Count 0.0 (0.00-0.1) % Eos # (Auto) 0.09 (0-0.5) x10^3/uL Immature Gran # (Auto) 0.02 (0.00-0.03) x10^3u/L Absolute Lymphs (auto) 3.23 (1.0-4.6) x10^3/uL Absolute Monos (auto) 0.55 (0.0-1.3) x10^3/uL Absolute Nucleated RBC 0.00 (0.00-0.01) x10^3u/L Lymphocytes % 34.0 (24.0-44.0) % Monocytes % 5.8 (0.0-12.0) % Eosinophils % 0.9 (0.00-5.0) % Basophils % 0.7 (0.0-0.4) % Absolute Granulocytes 5.55 (1.4-6.9) x10^3/uL Basophils # 0.07 (0-0.4) x10^3/uL Puncture Site RIGHT BRACHIAL pCO2 49 H (35-45) mmHg pO2 179 H* (75-100) mmHg Base Excess -5.6 L (-2.0-2.0) O2 Saturation 93.7 L (94-100) g/dF ABG pH 7.26 L (7.35-7.45) ABG HCO3 22.0 (22-28) ABG O2 Sat (Measured) 99.8 (95-100) % Collins Test NOT APPLICABLE A-a Gradient 473 a/A Ratio 0.27 Hemoglobin 19.0 Carboxyhemoglobin 4.9 (0.0-6.9) % THgb Methemoglobin 1.2 L (1.4-1.5) % Potassium 3.7 3.9 (3.5-5.1) Temperature 37.0 C POC O2 Flow Rate 100 % Sodium 144 (137-145) mmol/L Chloride 108 H (98-107) mmol/L Carbon Dioxide 19 L (22-30) mmol/L Anion Gap 21.3 H (5-15) MEQ/L BUN 17 (9-20) mg/dL Creatinine 1.20 (0.66-1.25) mg/dL Estimated GFR 70.1 ML/MIN Glucose 90 (74-106) mg/dL POC Glucometer (74 to 106) mg/dL Hemoglobin A1c (4.5-6.0) % Lactic Acid 3.8 H (0.4-2.0) Calcium 9.1 (8.4-10.2) mg/dL Total Bilirubin 0.50 (0.2-1.3) mg/dL AST 54 (17-59) U/L ALT 35 (0-50) U/L Alkaline Phosphatase 114 (38-126) U/L Troponin I (0.000-0.034) ng/mL Serum Total Protein 8.2 (6.3-8.2) g/dL Albumin 4.6 (3.5-5.0) g/dL Prealbumin (17.6-36.0) mg/dL Urine Color (Yellow) Urine Appearance (Clear) Urine pH (4.6-8.0) Ur Specific Duarte (1.005-1.030) Urine Protein (Negative) Urine Glucose (UA) (Negative) mg/dL Urine Ketones (Negative) Urine Blood (Negative) Urine Nitrite (Negative) Urine Bilirubin (Negative) Urine Urobilinogen (0.2) mg/dL Ur Leukocyte Esterase (Negative) U Hyaline Cast (Auto) (0-2) /LPF Urine Microscopic RBC (0-5) /HPF Urine Microscopic WBC (0-5) /HPF Ur Epithelial Cells (None Seen) /HPF Urine Bacteria (None Seen) /HPF Urine Culture Reflexed (NO) Salicylates < 1.0 L (2-20) mg/dL Urine Opiates Level (NEGATIVE) Ur Methadone (NEGATIVE) Urine Barbiturates (NEGATIVE) Ur Phencyclidine (PCP) (NEGATIVE) Urine Amphetamine (NEGATIVE) U Benzodiazepine Level (NEGATIVE) Urine Cocaine (NEGATIVE) Urine Marijuana (THC) (NEGATIVE) Ethyl Alcohol (0-10) mg/dL Influenza Type A Ag (NEGATIVE) Influenza Type B Ag (NEGATIVE) RSV (PCR) (NEGATIVE) SARS-CoV-2 (PCR) (NEGATIVE) 06/20/23 06/20/23 06/20/23 Range/Units 13:40 13:40 13:44 WBC (4.0-10.5) x10^3/uL RBC (4.1-5.6) x10^6/uL Hgb (12.5-18.0) g/dL Hct (42-50) % MCV (78-100) fL MCH (26-32) pg MCHC (32-36) g/dL RDW (11.5-14.0) % Plt Count (150-450) x10^3/uL MPV (7.5-11.0) fL Gran % (36.0-66.0) % Immature Gran % (Auto) (0.00-0.4) % Nucleat RBC Rel Count (0.00-0.1) % Eos # (Auto) (0-0.5) x10^3/uL Immature Gran # (Auto) (0.00-0.03) x10^3u/L Absolute Lymphs (auto) (1.0-4.6) x10^3/uL Absolute Monos (auto) (0.0-1.3) x10^3/uL Absolute Nucleated RBC (0.00-0.01) x10^3u/L Lymphocytes % (24.0-44.0) % Monocytes % (0.0-12.0) % Eosinophils % (0.00-5.0) % Basophils % (0.0-0.4) % Absolute Granulocytes (1.4-6.9) x10^3/uL Basophils # (0-0.4) x10^3/uL Puncture Site pCO2 (35-45) mmHg pO2 (75-100) mmHg Base Excess (-2.0-2.0) O2 Saturation (94-100) g/dF ABG pH (7.35-7.45) ABG HCO3 (22-28) ABG O2 Sat (Measured) (95-100) % Collins Test A-a Gradient a/A Ratio Hemoglobin Carboxyhemoglobin (0.0-6.9) % THgb Methemoglobin (1.4-1.5) % Potassium (3.5-5.1) Temperature C POC O2 Flow Rate % Sodium (137-145) mmol/L Chloride (98-107) mmol/L Carbon Dioxide (22-30) mmol/L Anion Gap (5-15) MEQ/L BUN (9-20) mg/dL Creatinine (0.66-1.25) mg/dL Estimated GFR ML/MIN Glucose (74-106) mg/dL POC Glucometer (74 to 106) mg/dL Hemoglobin A1c 4.85 (4.5-6.0) % Lactic Acid (0.4-2.0) Calcium (8.4-10.2) mg/dL Total Bilirubin (0.2-1.3) mg/dL AST (17-59) U/L ALT (0-50) U/L Alkaline Phosphatase (38-126) U/L Troponin I < 0.012 (0.000-0.034) ng/mL Serum Total Protein (6.3-8.2) g/dL Albumin (3.5-5.0) g/dL Prealbumin (17.6-36.0) mg/dL Urine Color (Yellow) Urine Appearance (Clear) Urine pH (4.6-8.0) Ur Specific Duarte (1.005-1.030) Urine Protein (Negative) Urine Glucose (UA) (Negative) mg/dL Urine Ketones (Negative) Urine Blood (Negative) Urine Nitrite (Negative) Urine Bilirubin (Negative) Urine Urobilinogen (0.2) mg/dL Ur Leukocyte Esterase (Negative) U Hyaline Cast (Auto) (0-2) /LPF Urine Microscopic RBC (0-5) /HPF Urine Microscopic WBC (0-5) /HPF Ur Epithelial Cells (None Seen) /HPF Urine Bacteria (None Seen) /HPF Urine Culture Reflexed (NO) Salicylates (2-20) mg/dL Urine Opiates Level (NEGATIVE) Ur Methadone (NEGATIVE) Urine Barbiturates (NEGATIVE) Ur Phencyclidine (PCP) (NEGATIVE) Urine Amphetamine (NEGATIVE) U Benzodiazepine Level (NEGATIVE) Urine Cocaine (NEGATIVE) Urine Marijuana (THC) (NEGATIVE) Ethyl Alcohol 468 H (0-10) mg/dL Influenza Type A Ag (NEGATIVE) Influenza Type B Ag (NEGATIVE) RSV (PCR) (NEGATIVE) SARS-CoV-2 (PCR) (NEGATIVE) 06/20/23 06/20/23 06/20/23 Range/Units 14:10 14:41 14:41 WBC (4.0-10.5) x10^3/uL RBC (4.1-5.6) x10^6/uL Hgb (12.5-18.0) g/dL Hct (42-50) % MCV (78-100) fL MCH (26-32) pg MCHC (32-36) g/dL RDW (11.5-14.0) % Plt Count (150-450) x10^3/uL MPV (7.5-11.0) fL Gran % (36.0-66.0) % Immature Gran % (Auto) (0.00-0.4) % Nucleat RBC Rel Count (0.00-0.1) % Eos # (Auto) (0-0.5) x10^3/uL Immature Gran # (Auto) (0.00-0.03) x10^3u/L Absolute Lymphs (auto) (1.0-4.6) x10^3/uL Absolute Monos (auto) (0.0-1.3) x10^3/uL Absolute Nucleated RBC (0.00-0.01) x10^3u/L Lymphocytes % (24.0-44.0) % Monocytes % (0.0-12.0) % Eosinophils % (0.00-5.0) % Basophils % (0.0-0.4) % Absolute Granulocytes (1.4-6.9) x10^3/uL Basophils # (0-0.4) x10^3/uL Puncture Site pCO2 (35-45) mmHg pO2 (75-100) mmHg Base Excess (-2.0-2.0) O2 Saturation (94-100) g/dF ABG pH (7.35-7.45) ABG HCO3 (22-28) ABG O2 Sat (Measured) (95-100) % Collins Test A-a Gradient a/A Ratio Hemoglobin Carboxyhemoglobin (0.0-6.9) % THgb Methemoglobin (1.4-1.5) % Potassium (3.5-5.1) Temperature C POC O2 Flow Rate % Sodium (137-145) mmol/L Chloride (98-107) mmol/L Carbon Dioxide (22-30) mmol/L Anion Gap (5-15) MEQ/L BUN (9-20) mg/dL Creatinine (0.66-1.25) mg/dL Estimated GFR ML/MIN Glucose (74-106) mg/dL POC Glucometer (74 to 106) mg/dL Hemoglobin A1c (4.5-6.0) % Lactic Acid (0.4-2.0) Calcium (8.4-10.2) mg/dL Total Bilirubin (0.2-1.3) mg/dL AST (17-59) U/L ALT (0-50) U/L Alkaline Phosphatase (38-126) U/L Troponin I (0.000-0.034) ng/mL Serum Total Protein (6.3-8.2) g/dL Albumin (3.5-5.0) g/dL Prealbumin (17.6-36.0) mg/dL Urine Color Yellow (Yellow) Urine Appearance Clear (Clear) Urine pH 6.0 (4.6-8.0) Ur Specific Duarte <=1.005 (1.005-1.030) Urine Protein Trace A (Negative) Urine Glucose (UA) Negative (Negative) mg/dL Urine Ketones Negative (Negative) Urine Blood Negative (Negative) Urine Nitrite Negative (Negative) Urine Bilirubin Negative (Negative) Urine Urobilinogen 0.2 (0.2) mg/dL Ur Leukocyte Esterase Negative (Negative) U Hyaline Cast (Auto) NONE SEEN (0-2) /LPF Urine Microscopic RBC 0-2 (0-5) /HPF Urine Microscopic WBC 0-2 (0-5) /HPF Ur Epithelial Cells None Seen (None Seen) /HPF Urine Bacteria None Seen (None Seen) /HPF Urine Culture Reflexed ORDERED SEPARATELY (NO) Salicylates (2-20) mg/dL Urine Opiates Level NEGATIVE (NEGATIVE) Ur Methadone NEGATIVE (NEGATIVE) Urine Barbiturates NEGATIVE (NEGATIVE) Ur Phencyclidine (PCP) NEGATIVE (NEGATIVE) Urine Amphetamine NEGATIVE (NEGATIVE) U Benzodiazepine Level NEGATIVE (NEGATIVE) Urine Cocaine NEGATIVE (NEGATIVE) Urine Marijuana (THC) NEGATIVE (NEGATIVE) Ethyl Alcohol (0-10) mg/dL Influenza Type A Ag NEGATIVE (NEGATIVE) Influenza Type B Ag NEGATIVE (NEGATIVE) RSV (PCR) NEGATIVE (NEGATIVE) SARS-CoV-2 (PCR) NEGATIVE (NEGATIVE) 06/20/23 06/20/23 06/20/23 Range/Units 16:13 17:50 21:42 WBC (4.0-10.5) x10^3/uL RBC (4.1-5.6) x10^6/uL Hgb (12.5-18.0) g/dL Hct (42-50) % MCV (78-100) fL MCH (26-32) pg MCHC (32-36) g/dL RDW (11.5-14.0) % Plt Count (150-450) x10^3/uL MPV (7.5-11.0) fL Gran % (36.0-66.0) % Immature Gran % (Auto) (0.00-0.4) % Nucleat RBC Rel Count (0.00-0.1) % Eos # (Auto) (0-0.5) x10^3/uL Immature Gran # (Auto) (0.00-0.03) x10^3u/L Absolute Lymphs (auto) (1.0-4.6) x10^3/uL Absolute Monos (auto) (0.0-1.3) x10^3/uL Absolute Nucleated RBC (0.00-0.01) x10^3u/L Lymphocytes % (24.0-44.0) % Monocytes % (0.0-12.0) % Eosinophils % (0.00-5.0) % Basophils % (0.0-0.4) % Absolute Granulocytes (1.4-6.9) x10^3/uL Basophils # (0-0.4) x10^3/uL Puncture Site RIGHT RADIAL pCO2 51 H (35-45) mmHg pO2 89 (75-100) mmHg Base Excess -6.2 L (-2.0-2.0) O2 Saturation 92.8 L (94-100) g/dF ABG pH 7.24 L* (7.35-7.45) ABG HCO3 21.9 L (22-28) ABG O2 Sat (Measured) 96.8 (95-100) % Collins Test NOT APPLICABLE A-a Gradient 132 a/A Ratio 0.40 Hemoglobin 17.9 Carboxyhemoglobin 3.2 (0.0-6.9) % THgb Methemoglobin 0.9 L (1.4-1.5) % Potassium 3.7 (3.5-5.1) Temperature 37.0 C POC O2 Flow Rate 40 % Sodium (137-145) mmol/L Chloride (98-107) mmol/L Carbon Dioxide (22-30) mmol/L Anion Gap (5-15) MEQ/L BUN (9-20) mg/dL Creatinine (0.66-1.25) mg/dL Estimated GFR ML/MIN Glucose (74-106) mg/dL POC Glucometer 97 (74 to 106) mg/dL Hemoglobin A1c (4.5-6.0) % Lactic Acid 2.7 H (0.4-2.0) Calcium (8.4-10.2) mg/dL Total Bilirubin (0.2-1.3) mg/dL AST (17-59) U/L ALT (0-50) U/L Alkaline Phosphatase (38-126) U/L Troponin I < 0.012 (0.000-0.034) ng/mL Serum Total Protein (6.3-8.2) g/dL Albumin (3.5-5.0) g/dL Prealbumin (17.6-36.0) mg/dL Urine Color (Yellow) Urine Appearance (Clear) Urine pH (4.6-8.0) Ur Specific Duarte (1.005-1.030) Urine Protein (Negative) Urine Glucose (UA) (Negative) mg/dL Urine Ketones (Negative) Urine Blood (Negative) Urine Nitrite (Negative) Urine Bilirubin (Negative) Urine Urobilinogen (0.2) mg/dL Ur Leukocyte Esterase (Negative) U Hyaline Cast (Auto) (0-2) /LPF Urine Microscopic RBC (0-5) /HPF Urine Microscopic WBC (0-5) /HPF Ur Epithelial Cells (None Seen) /HPF Urine Bacteria (None Seen) /HPF Urine Culture Reflexed (NO) Salicylates (2-20) mg/dL Urine Opiates Level (NEGATIVE) Ur Methadone (NEGATIVE) Urine Barbiturates (NEGATIVE) Ur Phencyclidine (PCP) (NEGATIVE) Urine Amphetamine (NEGATIVE) U Benzodiazepine Level (NEGATIVE) Urine Cocaine (NEGATIVE) Urine Marijuana (THC) (NEGATIVE) Ethyl Alcohol (0-10) mg/dL Influenza Type A Ag (NEGATIVE) Influenza Type B Ag (NEGATIVE) RSV (PCR) (NEGATIVE) SARS-CoV-2 (PCR) (NEGATIVE) 06/20/23 06/20/23 06/20/23 Range/Units 21:43 21:43 22:00 WBC (4.0-10.5) x10^3/uL RBC (4.1-5.6) x10^6/uL Hgb (12.5-18.0) g/dL Hct (42-50) % MCV (78-100) fL MCH (26-32) pg MCHC (32-36) g/dL RDW (11.5-14.0) % Plt Count (150-450) x10^3/uL MPV (7.5-11.0) fL Gran % (36.0-66.0) % Immature Gran % (Auto) (0.00-0.4) % Nucleat RBC Rel Count (0.00-0.1) % Eos # (Auto) (0-0.5) x10^3/uL Immature Gran # (Auto) (0.00-0.03) x10^3u/L Absolute Lymphs (auto) (1.0-4.6) x10^3/uL Absolute Monos (auto) (0.0-1.3) x10^3/uL Absolute Nucleated RBC (0.00-0.01) x10^3u/L Lymphocytes % (24.0-44.0) % Monocytes % (0.0-12.0) % Eosinophils % (0.00-5.0) % Basophils % (0.0-0.4) % Absolute Granulocytes (1.4-6.9) x10^3/uL Basophils # (0-0.4) x10^3/uL Puncture Site pCO2 (35-45) mmHg pO2 (75-100) mmHg Base Excess (-2.0-2.0) O2 Saturation (94-100) g/dF ABG pH (7.35-7.45) ABG HCO3 (22-28) ABG O2 Sat (Measured) (95-100) % Collins Test A-a Gradient a/A Ratio Hemoglobin Carboxyhemoglobin (0.0-6.9) % THgb Methemoglobin (1.4-1.5) % Potassium (3.5-5.1) Temperature C POC O2 Flow Rate % Sodium (137-145) mmol/L Chloride (98-107) mmol/L Carbon Dioxide (22-30) mmol/L Anion Gap (5-15) MEQ/L BUN (9-20) mg/dL Creatinine (0.66-1.25) mg/dL Estimated GFR ML/MIN Glucose (74-106) mg/dL POC Glucometer (74 to 106) mg/dL Hemoglobin A1c (4.5-6.0) % Lactic Acid 3.7 H (0.4-2.0) Calcium (8.4-10.2) mg/dL Total Bilirubin (0.2-1.3) mg/dL AST (17-59) U/L ALT (0-50) U/L Alkaline Phosphatase (38-126) U/L Troponin I < 0.012 (0.000-0.034) ng/mL Serum Total Protein (6.3-8.2) g/dL Albumin (3.5-5.0) g/dL Prealbumin 20.99 (17.6-36.0) mg/dL Urine Color (Yellow) Urine Appearance (Clear) Urine pH (4.6-8.0) Ur Specific Duarte (1.005-1.030) Urine Protein (Negative) Urine Glucose (UA) (Negative) mg/dL Urine Ketones (Negative) Urine Blood (Negative) Urine Nitrite (Negative) Urine Bilirubin (Negative) Urine Urobilinogen (0.2) mg/dL Ur Leukocyte Esterase (Negative) U Hyaline Cast (Auto) (0-2) /LPF Urine Microscopic RBC (0-5) /HPF Urine Microscopic WBC (0-5) /HPF Ur Epithelial Cells (None Seen) /HPF Urine Bacteria (None Seen) /HPF Urine Culture Reflexed (NO) Salicylates (2-20) mg/dL Urine Opiates Level (NEGATIVE) Ur Methadone (NEGATIVE) Urine Barbiturates (NEGATIVE) Ur Phencyclidine (PCP) (NEGATIVE) Urine Amphetamine (NEGATIVE) U Benzodiazepine Level (NEGATIVE) Urine Cocaine (NEGATIVE) Urine Marijuana (THC) (NEGATIVE) Ethyl Alcohol (0-10) mg/dL Influenza Type A Ag (NEGATIVE) Influenza Type B Ag (NEGATIVE) RSV (PCR) (NEGATIVE) SARS-CoV-2 (PCR) (NEGATIVE) 06/21/23 06/21/23 06/21/23 Range/Units 04:45 04:45 07:56 WBC 6.4 (4.0-10.5) x10^3/uL RBC 4.25 (4.1-5.6) x10^6/uL Hgb 14.3 D (12.5-18.0) g/dL Hct 44.6 (42-50) % MCV 104.9 H (78-100) fL MCH 33.6 H (26-32) pg MCHC 32.1 (32-36) g/dL RDW 16.0 H (11.5-14.0) % Plt Count 218 (150-450) x10^3/uL MPV 9.4 (7.5-11.0) fL Gran % (36.0-66.0) % Immature Gran % (Auto) (0.00-0.4) % Nucleat RBC Rel Count (0.00-0.1) % Eos # (Auto) (0-0.5) x10^3/uL Immature Gran # (Auto) (0.00-0.03) x10^3u/L Absolute Lymphs (auto) (1.0-4.6) x10^3/uL Absolute Monos (auto) (0.0-1.3) x10^3/uL Absolute Nucleated RBC (0.00-0.01) x10^3u/L Lymphocytes % (24.0-44.0) % Monocytes % (0.0-12.0) % Eosinophils % (0.00-5.0) % Basophils % (0.0-0.4) % Absolute Granulocytes (1.4-6.9) x10^3/uL Basophils # (0-0.4) x10^3/uL Puncture Site pCO2 (35-45) mmHg pO2 (75-100) mmHg Base Excess (-2.0-2.0) O2 Saturation (94-100) g/dF ABG pH (7.35-7.45) ABG HCO3 (22-28) ABG O2 Sat (Measured) (95-100) % Collins Test A-a Gradient a/A Ratio Hemoglobin Carboxyhemoglobin (0.0-6.9) % THgb Methemoglobin (1.4-1.5) % Potassium 3.4 L (3.5-5.1) Temperature C POC O2 Flow Rate % Sodium 136 L D (137-145) mmol/L Chloride 107 (98-107) mmol/L Carbon Dioxide 19 L (22-30) mmol/L Anion Gap 13.2 (5-15) MEQ/L BUN 13 (9-20) mg/dL Creatinine 0.95 (0.66-1.25) mg/dL Estimated GFR 92.8 ML/MIN Glucose 102 (74-106) mg/dL POC Glucometer 111 H (74 to 106) mg/dL Hemoglobin A1c (4.5-6.0) % Lactic Acid (0.4-2.0) Calcium 8.2 L (8.4-10.2) mg/dL Total Bilirubin 0.40 (0.2-1.3) mg/dL AST 33 (17-59) U/L ALT 23 (0-50) U/L Alkaline Phosphatase 76 (38-126) U/L Troponin I (0.000-0.034) ng/mL Serum Total Protein 6.3 (6.3-8.2) g/dL Albumin 3.6 (3.5-5.0) g/dL Prealbumin (17.6-36.0) mg/dL Urine Color (Yellow) Urine Appearance (Clear) Urine pH (4.6-8.0) Ur Specific Duarte (1.005-1.030) Urine Protein (Negative) Urine Glucose (UA) (Negative) mg/dL Urine Ketones (Negative) Urine Blood (Negative) Urine Nitrite (Negative) Urine Bilirubin (Negative) Urine Urobilinogen (0.2) mg/dL Ur Leukocyte Esterase (Negative) U Hyaline Cast (Auto) (0-2) /LPF Urine Microscopic RBC (0-5) /HPF Urine Microscopic WBC (0-5) /HPF Ur Epithelial Cells (None Seen) /HPF Urine Bacteria (None Seen) /HPF Urine Culture Reflexed (NO) Salicylates (2-20) mg/dL Urine Opiates Level (NEGATIVE) Ur Methadone (NEGATIVE) Urine Barbiturates (NEGATIVE) Ur Phencyclidine (PCP) (NEGATIVE) Urine Amphetamine (NEGATIVE) U Benzodiazepine Level (NEGATIVE) Urine Cocaine (NEGATIVE) Urine Marijuana (THC) (NEGATIVE) Ethyl Alcohol 40 H (0-10) mg/dL Influenza Type A Ag (NEGATIVE) Influenza Type B Ag (NEGATIVE) RSV (PCR) (NEGATIVE) SARS-CoV-2 (PCR) (NEGATIVE) 06/21/23 06/21/23 06/21/23 Range/Units 08:21 11:56 12:22 WBC (4.0-10.5) x10^3/uL RBC (4.1-5.6) x10^6/uL Hgb (12.5-18.0) g/dL Hct (42-50) % MCV (78-100) fL MCH (26-32) pg MCHC (32-36) g/dL RDW (11.5-14.0) % Plt Count (150-450) x10^3/uL MPV (7.5-11.0) fL Gran % (36.0-66.0) % Immature Gran % (Auto) (0.00-0.4) % Nucleat RBC Rel Count (0.00-0.1) % Eos # (Auto) (0-0.5) x10^3/uL Immature Gran # (Auto) (0.00-0.03) x10^3u/L Absolute Lymphs (auto) (1.0-4.6) x10^3/uL Absolute Monos (auto) (0.0-1.3) x10^3/uL Absolute Nucleated RBC (0.00-0.01) x10^3u/L Lymphocytes % (24.0-44.0) % Monocytes % (0.0-12.0) % Eosinophils % (0.00-5.0) % Basophils % (0.0-0.4) % Absolute Granulocytes (1.4-6.9) x10^3/uL Basophils # (0-0.4) x10^3/uL Puncture Site pCO2 (35-45) mmHg pO2 (75-100) mmHg Base Excess (-2.0-2.0) O2 Saturation (94-100) g/dF ABG pH (7.35-7.45) ABG HCO3 (22-28) ABG O2 Sat (Measured) (95-100) % Collins Test A-a Gradient a/A Ratio Hemoglobin Carboxyhemoglobin (0.0-6.9) % THgb Methemoglobin (1.4-1.5) % Potassium (3.5-5.1) Temperature C POC O2 Flow Rate % Sodium (137-145) mmol/L Chloride (98-107) mmol/L Carbon Dioxide (22-30) mmol/L Anion Gap (5-15) MEQ/L BUN (9-20) mg/dL Creatinine (0.66-1.25) mg/dL Estimated GFR ML/MIN Glucose (74-106) mg/dL POC Glucometer 200 H (74 to 106) mg/dL Hemoglobin A1c (4.5-6.0) % Lactic Acid 1.0 (0.4-2.0) Calcium (8.4-10.2) mg/dL Total Bilirubin (0.2-1.3) mg/dL AST (17-59) U/L ALT (0-50) U/L Alkaline Phosphatase (38-126) U/L Troponin I (0.000-0.034) ng/mL Serum Total Protein (6.3-8.2) g/dL Albumin (3.5-5.0) g/dL Prealbumin (17.6-36.0) mg/dL Urine Color (Yellow) Urine Appearance (Clear) Urine pH (4.6-8.0) Ur Specific Duarte (1.005-1.030) Urine Protein (Negative) Urine Glucose (UA) (Negative) mg/dL Urine Ketones (Negative) Urine Blood (Negative) Urine Nitrite (Negative) Urine Bilirubin (Negative) Urine Urobilinogen (0.2) mg/dL Ur Leukocyte Esterase (Negative) U Hyaline Cast (Auto) (0-2) /LPF Urine Microscopic RBC (0-5) /HPF Urine Microscopic WBC (0-5) /HPF Ur Epithelial Cells (None Seen) /HPF Urine Bacteria (None Seen) /HPF Urine Culture Reflexed (NO) Salicylates (2-20) mg/dL Urine Opiates Level (NEGATIVE) Ur Methadone (NEGATIVE) Urine Barbiturates (NEGATIVE) Ur Phencyclidine (PCP) (NEGATIVE) Urine Amphetamine (NEGATIVE) U Benzodiazepine Level (NEGATIVE) Urine Cocaine (NEGATIVE) Urine Marijuana (THC) (NEGATIVE) Ethyl Alcohol < 10 (0-10) mg/dL Influenza Type A Ag (NEGATIVE) Influenza Type B Ag (NEGATIVE) RSV (PCR) (NEGATIVE) SARS-CoV-2 (PCR) (NEGATIVE) Micro Results-Entire Visit: Microbiology 06/20/23 14:41 Urine Culture - Preliminary Catherized NO GROWTH TO DATE Accuchecks Date 06/21/23 Date 06/20/23 Time 08:01 Time 13:46 - Radiology Exams Ordered Rad Exams-Entire Visit: Radiology Procedures Category Date Time Status CHEST 1 VIEW (PORTABLE) Stat Exams 06/20/23 13:42 Completed HEAD WITHOUT CONTRAST [CT] Stat Exams 06/20/23 13:42 Completed MRI BRAIN W/O CONTRAST [MRI] Routine Exams 06/21/23 11:04 Ordered - Procedures and Test Procedures and Tests throughout Hospitalization: Therapy Orders & Screens 06/20/23 14:18 Standby ROUTINE Comment: 06/20/23 17:48 Oxygen Nasal Cannula 6 lpm Comment: Respiratory Therapy Consult ONCE Comment: Reason For Exam: 06/20/23 18:30 RT Miscellaneous Order ROUTINE Comment: Physician Instructions: CPAP at night for chronic sleep apnea Reason For Exam: Diagnosis: ETOH abuse, seizure 06/20/23 20:26 Respiratory Therapy Assessment DAILY Comment: Diagnosis: ETOH abuse, seizure Discharge Exam General Appearance: no apparent distress, alert Neurologic Exam: alert, oriented x 3, cooperative, normal mood/affect, nml cerebellar function, sensation nml, No motor deficits Eye Exam: PERRL, EOMI, eyes nml inspection Ears, Nose, Throat Exam: normal ENT inspection, pharynx normal, moist mucous membranes Neck Exam: normal inspection, non-tender, supple, full range of motion Respiratory Exam: normal breath sounds, lungs clear, No respiratory distress Cardiovascular Exam: regular rate/rhythm, normal heart sounds Gastrointestinal/Abdomen Exam: soft, No tenderness, No mass Male Genitalia Exam: deferred Rectal Exam: deferred Back Exam: normal inspection, normal range of motion, No CVA tenderness, No vertebral tenderness Extremity Exam: normal inspection, normal range of motion Skin Exam: normal color, warm, dry Final Diagnosis/Problem List - Final Discharge Diagnosis/Problem (1) Pneumonia Current Visit: Yes Status: Acute Code(s): J18.9 - PNEUMONIA, UNSPECIFIED ORGANISM (2) Alcohol intoxication Current Visit: Yes Status: Acute (3) Seizure Current Visit: No Status: Acute Code(s): R56.9 - UNSPECIFIED CONVULSIONS (4) Altered mental status Current Visit: Yes Status: Acute Code(s): R41.82 - ALTERED MENTAL STATUS, UNSPECIFIED (5) HTN (hypertension) Current Visit: Yes Status: Acute Code(s): I10 - ESSENTIAL (PRIMARY) HYPERTENSION (6) GERD (gastroesophageal reflux disease) Current Visit: Yes Status: Acute Code(s): K21.9 - GASTRO-ESOPHAGEAL REFLUX DISEASE WITHOUT ESOPHAGITIS (7) Lactic acidosis Current Visit: Yes Status: Acute Code(s): E87.20 - ACIDOSIS, UNSPECIFIED (8) Alcohol abuse Current Visit: No Status: Acute Assessment & Plan: (1) Pneumonia Current Visit: Yes Status: Acute Assessment & Plan: - Rocephin and azithromycin - 3lNC 98% - BL room air 06/21 - RA - Will continue Op antibiotics Code(s): J18.9 - PNEUMONIA, UNSPECIFIED ORGANISM (2) Alcohol intoxication Current Visit: Yes Status: Acute Assessment & Plan: - BAL 468 on admission - alcohol withdraw protocol - IVF - seizure precautions - TELE - recheck BAL in AM 06/21 - BAL at noon <10 (3) Seizure Current Visit: No Status: Acute Assessment & Plan: - seizure precautions - Seizure hx - 2:2 ETOH ? - Keppra gave in ER- Continue - Neurology consulted 06/21 - MRI brain- reviewed - no new acute concerns - no seizures since admission - F/u OP with neurology - No Driving until cleared by neurology Code(s): R56.9 - UNSPECIFIED CONVULSIONS (4) Altered mental status Current Visit: Yes Status: Acute Assessment & Plan: - 2:2 seizure and ETOH intoxication 06/21 - awake and alert Code(s): R41.82 - ALTERED MENTAL STATUS, UNSPECIFIED (5) HTN (hypertension) Current Visit: Yes Status: Acute Assessment & Plan: - BP stable - Hold meds for now- med clarification needs done. 06/21 - BP stable Code(s): I10 - ESSENTIAL (PRIMARY) HYPERTENSION (6) GERD (gastroesophageal reflux disease) Current Visit: Yes Status: Acute Assessment & Plan: - Protonix Code(s): K21.9 - GASTRO-ESOPHAGEAL REFLUX DISEASE WITHOUT ESOPHAGITIS (7) Lactic acidosis Current Visit: Yes Status: Acute Assessment & Plan: - 2:2 pneumonia and ETOH - Last LA 2.7 in ER- 1 L fluid bolus gave in ER - Repeat lab ordered 06/21 - LA 1.0- resolved Code(s): E87.20 - ACIDOSIS, UNSPECIFIED (8) Alcohol abuse Current Visit: No Status: Acute Assessment & Plan: - Unsure amount he drinks at this time. - When more responsive will ask if he needs rehab or OP treatment 06/21 - refused rehab - drinks 1 gallon whiskey daily - advised cessation or even reducing amount- discussed manager long term care side effects Code(s): F10.10 - ALCOHOL ABUSE, UNCOMPLICATED - Discharge Discharge Date: 06/21/23 Disposition: Home, Self-Care Condition: Stable Prescriptions: New Doxycycline Hyclate 100 mg [Vibramycin 100 MG] 100 mg PO BID 5 Days #10 tab Continue Amlodipine Besylate 5 mg [Norvasc 5 mg] 5 mg PO BID Gemfibrozil [Lopid] 600 mg PO BID levETIRAcetam [Keppra] 750 mg PO BID Losartan Potassium [Cozaar] 100 mg PO DAILY Omeprazole 20 mg PO DAILY Potassium Chloride Tab* [Klor Con] 10 meq PO DAILY #5 tab Clonidine HCl 0.1 mg [Clonidine 0.1 mg Tablet] 0.1 mg PO BID Albuterol Sulfate Mdi [ALBUTEROL/Proair Hfa MDI] 2 puff IH QID Nitroglycerin 0.4 mg Tablet [Nitrostat 0.4 MG Tablet] 0.4 mg SL Q5MIN PRN MR X 3 PRN PRN Reason: Chest Pain Gabapentin [Neurontin ] 100 mg PO TID Escitalopram Oxalate [Lexapro] 20 mg PO DAILY Apixaban [Eliquis 2.5 mg Tablet] 5 mg PO BID 30 Days #60 tablet Folic Acid 1 mg [Folate 1 mg] 1 mg PO DAILY 30 Days #30 tablet Multivitamins,Therapeutic Tab* [Theragran Multivitamin] 1 tab PO QAM 30 Days #30 tablet Thiamine HCl 100 mg [Vitamin B-1 100 mg] 50 mg PO DAILY 30 Days #15 tablet Furosemide 20 mg [Lasix 20 mg] 20 mg PO DAILY 30 Days #30 tablet Discontinued Cefdinir 300 mg PO BID 10 Days #20 cap Doxycycline Hyclate 100 mg [Vibramycin 100 MG] 100 mg PO BID 10 Days #20 tab Additional Instructions: [facility] HAS BEEN SET UP FOR YOU. THEY WILL CONTACT YOU TO ARRANGE A TIME TO COME SEE YOU, THEIR PHONE # IS [phone]. TRANSPORTATION: [facility] [phone] [facility] WILL BE CALLING YOU TO SET UP AND APPOINTMENT. Follow up with: AXEL CISNEROS [Primary Care Provider] - Call for Appointment
--- NOTE | 2023-06-21 14:14 | XRAY ---
Indication: Seizures. Sagittal, coronal, and axial MRI brain performed without contrast using T1, T2, FLAIR, diffusion, and ADC sequences. Comparison: None Age-appropriate global atrophy, moderate periventricular degenerative micro-ischemia signal bilaterally, and left periventricular remote lacunar infarct. Small right and tiny left frontal lobe foci of encephalomalacia with surrounding gliosis favoring old infarcts. No acute intracranial hemorrhage, abnormal extra-axial fluid collection, or mass effect. Diffusion images are negative for restricted signal. Negative for mesial temporal sclerosis. Fourth ventricle is midline without hydrocephalus. 7/8 cranial nerve complex bilateral symmetric. Normal flow void signal within the major intercerebral circulation. Normal-appearing craniocervical junction and sella turcica. Small fluid level in left maxillary sinus. Remaining paranasal sinuses are clear. Impression: 1. Atrophy and degenerative micro-ischemia within normal limits for patient's age. 2. 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 3. Left maxillary sinus disease. 4. Remaining MRI brain without contrast exam is negative.
--- NOTE | 2023-06-21 15:51 | PCM.DCORD ---
- Discharge Discharge Date: 06/21/23 Disposition: Home, Self-Care Condition: Stable Prescriptions: New Doxycycline Hyclate 100 mg [Vibramycin 100 MG] 100 mg PO BID 5 Days #10 tab Levetiracetam 250 MG [Keppra 250 MG] 750 mg PO BID 10 Days #20 tablet Continue Amlodipine Besylate 5 mg [Norvasc 5 mg] 5 mg PO BID Gemfibrozil [Lopid] 600 mg PO BID levETIRAcetam [Keppra] 750 mg PO BID Losartan Potassium [Cozaar] 100 mg PO DAILY Omeprazole 20 mg PO DAILY Potassium Chloride Tab* [Klor Con] 10 meq PO DAILY #5 tab Clonidine HCl 0.1 mg [Clonidine 0.1 mg Tablet] 0.1 mg PO BID Albuterol Sulfate Mdi [ALBUTEROL/Proair Hfa MDI] 2 puff IH QID Nitroglycerin 0.4 mg Tablet [Nitrostat 0.4 MG Tablet] 0.4 mg SL Q5MIN PRN MR X 3 PRN PRN Reason: Chest Pain Gabapentin [Neurontin ] 100 mg PO TID Escitalopram Oxalate [Lexapro] 20 mg PO DAILY Apixaban [Eliquis 2.5 mg Tablet] 5 mg PO BID 30 Days #60 tablet Folic Acid 1 mg [Folate 1 mg] 1 mg PO DAILY 30 Days #30 tablet Multivitamins,Therapeutic Tab* [Theragran Multivitamin] 1 tab PO QAM 30 Days #30 tablet Thiamine HCl 100 mg [Vitamin B-1 100 mg] 50 mg PO DAILY 30 Days #15 tablet Furosemide 20 mg [Lasix 20 mg] 20 mg PO DAILY 30 Days #30 tablet Discontinued Cefdinir 300 mg PO BID 10 Days #20 cap Doxycycline Hyclate 100 mg [Vibramycin 100 MG] 100 mg PO BID 10 Days #20 tab Additional Instructions: [facility] HAS BEEN SET UP FOR YOU. THEY WILL CONTACT YOU TO ARRANGE A TIME TO COME SEE YOU, THEIR PHONE # is [phone]. TRANSPORTATION: [facility] , [facility] [phone] [facility] WILL BE CALLING YOU TO SET UP AND APPOINTMENT. Follow up with: AXEL CISNEROS [Primary Care Provider] - Call for Appointment
[2023-06-21 15:58] VITALS: BP 167/95; PULSE 77; RESP 21; TEMP 98.3
[2023-06-21] MEDS ORDERED: Zithromax 500 MG/ 250 ML NaCl Premix 500 MG/250 ML IVPB IV SCH (16:00)
== END 2023-06-21 16:24 | disposition home or self-care (01) ==
LOC: ED 13:39 → ICU 17:24
PROVIDERS: ADMIT Internal Medicine; ATTEND Internal Medicine
DX: J18.9 Pneumonia, unspecified organism (principal); F10.129 Alcohol abuse with intoxication, unspecified; R56.9 Unspecified convulsions; R41.82 Altered mental status, unspecified; I10 Essential (primary) hypertension; K21.9 Gastro-esophageal reflux disease without esophagitis; E87.20 Acidosis, unspecified; F17.200 Nicotine dependence, unspecified, uncomplicated; E78.5 Hyperlipidemia, unspecified; G47.30 Sleep apnea, unspecified; I25.2 Old myocardial infarction; Z79.899 Other long term (current) drug therapy; Z20.828 Contact with and (suspected) exposure to other viral communicable diseases
CPT/HCPCS: 0241U; 36000; 36415; 36600; 70450; 70551; 71045; 80053; 80179; 80307; 81001; 82077; 82375; 82803; 82947; 83036; 83605; 84134; 84484; 85025; 85027; 87040; 87086; 93005; 93041; 94799; 96374; 96375; 99285; P9612; J0456; J0696; J1953; J2405; Q3014; A9270-GY; G0378

== ENCOUNTER 2023-07-19 15:24 | Observation (INO) | payer MEDICARE ==
[2023-07-19 15:33] LABS: A-aADO2 448; ABG HEMOGLOBIN 19.8; ABG POTASSIUM 3.2 (3.5-5.1); ARTERIAL BLD GAS O2 SATURATION 99.7 % (95-100); ARTERIAL BLOOD GAS BASE EXCESS -0.4 (-2.0-2.0); ARTERIAL BLOOD GAS FIO2 100 %; ARTERIAL BLOOD GAS PCO2 39 mmHg (35-45); ARTERIAL BLOOD GAS PO2 216 mmHg (75-100); CARBOXYHEMOGLOBIN 5.9 % THgb (0.0-6.9); HCO3- 24.2 (22-28); HGB O2 SAT 92.7 g/dF (94-100); paO2 pAO1 0.33
[2023-07-19 15:34] LABS: ABG SITE RIGHT RADIAL; ALLEN TEST OK? YES
[2023-07-19 15:48] LABS: Absolute Neutrophil Ct (ANC) 2.63 x10^3/uL (1.4-6.9); BASOPHIL % 0.3 % (0.0-0.4); Basophil (Absolute #) 0.02 x10^3/uL (0-0.4); Eosinophil % 0.6 % (0.00-5.0); Eosinophil (Absolute #) 0.04 x10^3/uL (0-0.5); Hematocrit 57.1 % (42-50); Hemoglobin 19.5 g/dL (12.5-18.0); IMMATURE GRAN # 0.02 x10^3u/L (0.00-0.03); IMMATURE GRAN % 0.3 % (0.00-0.4); Lymphocytes % 50.5 % (24.0-44.0); Mean Cell Volume 99.1 fL (78-100); Mean Corpuscular Hemoglobin 33.9 pg (26-32); Mean Corpuscular Hgb Concent. 34.2 g/dL (32-36); Mean Platelet Volume 9.4 fL (7.5-11.0); Monocyte (Absolute #) 0.53 x10^3/uL (0.0-1.3); Monocytes % 8.1 % (0.0-12.0); Neutrophil % 40.2 % (36.0-66.0); Platelet Count 185 x10^3/uL (150-450); Red Blood Count 5.76 x10^6/uL (4.1-5.6); Red Cell Distribution Width 15.1 % (11.5-14.0); White Blood Count 6.5 x10^3/uL (4.0-10.5)
--- NOTE | 2023-07-19 15:58 | XRAY ---
Indication: Found unresponsive. Multiple contiguous axial images obtained through the head without contrast. Comparison: June 20, 2023 Again age-appropriate global atrophy, moderate periventricular degenerative micro-ischemia bilaterally, remote bifrontal lobe infarcts, and remote lacunar infarct left basal ganglia. No acute intracranial hemorrhage, abnormal extra-axial fluid collection, or mass effect. Fourth ventricle is midline without hydrocephalus. Bony calvarium intact. Again small fluid leveling left maxillary sinus. New incompletely visualized right NG tube. Impression: Continued nonacute senile brain with again multifocal old infarcts further detailed on recent MRI brain June 21, 2023.
[2023-07-19 15:59] LABS: ADD URINE CULTURE? YES (NO); Appearance Clear (Clear); Bacteria None Seen /HPF (None Seen); Bilirubin Negative (Negative); Blood Trace (Negative); Epithelial Cells None Seen /HPF (None Seen); Glucose, Urine Negative (Negative); Ketones Negative (Negative); Leukocyte Esterase Negative (Negative); Nitrite Negative (Negative); Ph 5.5 (4.6-8.0); Protein,Urine Dip 100 (Negative); RBC 0-2 /HPF (0-5); Specific Gravity 1.015 (1.005-1.030); Urobilinogen 0.2 mg/dL (0.2); WBC 0-2 /HPF (0-5)
[2023-07-19 16:00] LABS: ACETAMINOPHEN < 10 ug/ml (10-30); SALICYLATE < 1.0 mg/dL (2-20)
[2023-07-19] MEDS: Vitamins For Infusion 10 ML INJECTION*** 10 ML, THIAMINE 200 MG/2 ML*** 100 MG, FOLNATE... IV SCH (16:00)
[2023-07-19 16:02] LABS: ALBUMIN 4.9 g/dL (3.5-5.0); ANION GAP 21.9 MEQ/L (5-15); BILIRUBIN,TOTAL 0.5 mg/dL (0.2-1.3); Calcium 9.6 mg/dL (8.4-10.2); Creatinine 1 1.39 mg/dL (0.66-1.25); EST GLOMERULAR FILTRATION RATE 58.8 ML/MIN; MAGNESIUM 2.1 mg/dL (1.6-2.3); PROTIME 10.9 SECONDS (9.4-12.5); PTT 28.7 SECONDS (25.1-36.5); Potassium 3.2 mmol/L (3.5-5.1); Total Protein 8.2 g/dL (6.3-8.2)
[2023-07-19] MEDS: Sodium Chloride 0.9% 1000 ML 1,000 ML IV STA ×2 (16:02→17:28)
--- NOTE | 2023-07-19 16:02 | XRAY ---
Indication: Found unresponsive. Aspiration. Multiple contiguous axial images obtained through the chest without contrast. Comparison: None Lungs demonstrates moderate bilateral dependent atelectasis and chunky left upper lobe calcified granuloma. No suspicious pulmonary mass/nodule, infiltrate, effusion, or pneumothorax. Heart not enlarged with scattered coronary calcifications. Aorta is normal in course and caliber. Small mediastinal and left hilar calcified nodes. No pathologic mediastinal lymphadenopathy. Bony thorax intact with mild degenerative changes throughout the spine. Limited upper abdomen demonstrates fatty liver. Impression: 1. Bilateral dependent atelectasis, coronary calcifications, degenerative spondylosis, fatty liver, and old granulomatous disease. 2. Remaining CT chest without contrast exam is negative.
[2023-07-19 16:03] LABS: Amphetamine,Urine NEGATIVE (NEGATIVE); Barbiturate,Urine NEGATIVE (NEGATIVE); Benzodiazepine,Urine NEGATIVE (NEGATIVE); Cocaine,Urine NEGATIVE (NEGATIVE); Methadone,Urine NEGATIVE (NEGATIVE); Opiate,Urine NEGATIVE (NEGATIVE); PCP,Urine NEGATIVE (NEGATIVE); THC,Urine NEGATIVE (NEGATIVE)
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
[2023-07-19 17:10] LABS: A-aADO2 118; ABG HEMOGLOBIN 19.1; ABG POTASSIUM 2.7 (3.5-5.1); ABG SITE LEFT RADIAL; ARTERIAL BLD GAS O2 SATURATION 96.1 % (95-100); ARTERIAL BLOOD GAS BASE EXCESS -1.9 (-2.0-2.0); ARTERIAL BLOOD GAS FIO2 36 %; ARTERIAL BLOOD GAS PCO2 45 mmHg (35-45); ARTERIAL BLOOD GAS PO2 82 mmHg (75-100); ARTERIAL BLOOD GAS pH 7.34 (7.35-7.45); CARBOXYHEMOGLOBIN 5.5 % THgb (0.0-6.9); HCO3- 24.3 (22-28); HGB O2 SAT 89.9 g/dF (94-100); paO2 pAO1 0.41
[2023-07-19] MEDS ORDERED: Sodium Chloride 0.9% 1000 ML 1,000 ML ONE (17:28)
[2023-07-19 19:16] LABS: ANION GAP 20.1 MEQ/L (5-15); BLOOD UREA NITROGEN 17 mg/dL (9-20); CHLORIDE 106 mmol/L (98-107); Calcium 8.7 mg/dL (8.4-10.2); Carbon Dioxide 21 mmol/L (22-30); Creatinine 1 1.13 mg/dL (0.66-1.25); EST GLOMERULAR FILTRATION RATE 75.3 ML/MIN; Glucose 87 mg/dL (74-106); SODIUM 144 mmol/L (137-145); TROPONIN < 0.012 ng/mL (0.000-0.034)
[2023-07-19 19:17] LABS: ETHYL ALCOHOL 436 mg/dL (0-10)
[2023-07-19] MEDS: SODIUM CHLORIDE 0.9% W/ 40 mEq KCL 1000ML 1,000 ML IV SCH (19:59)
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
[2023-07-19] MEDS ORDERED: DUONEB 0.5-3 MG/3 ml Neb IH ONE (23:30)
[2023-07-19] MEDS: DUONEB 0.5-3 MG/3 ml Neb IH SCH (23:32)
[2023-07-20 05:46] LABS: Hematocrit 49.7 % (42-50); Hemoglobin 16.2 g/dL (12.5-18.0); Mean Cell Volume 101.6 fL (78-100); Mean Corpuscular Hemoglobin 33.1 pg (26-32); Mean Corpuscular Hgb Concent. 32.6 g/dL (32-36); Mean Platelet Volume 9.3 fL (7.5-11.0); Platelet Count 155 x10^3/uL (150-450); Red Blood Count 4.89 x10^6/uL (4.1-5.6); Red Cell Distribution Width 15.3 % (11.5-14.0); White Blood Count 8.2 x10^3/uL (4.0-10.5)
[2023-07-20 05:53] LABS: ALBUMIN 3.9 g/dL (3.5-5.0); ANION GAP 18.1 MEQ/L (5-15); BILIRUBIN,TOTAL 0.4 mg/dL (0.2-1.3); Calcium 8.5 mg/dL (8.4-10.2); Creatinine 1 0.97 mg/dL (0.66-1.25); EST GLOMERULAR FILTRATION RATE 90.5 ML/MIN; Potassium 3.1 mmol/L (3.5-5.1); Total Protein 6.6 g/dL (6.3-8.2)
[2023-07-20] MEDS ORDERED: Compazine 10 MG/2 ML IM PRN (07:28)
[2023-07-20] MEDS: DUONEB 0.5-3 MG/3 ml Neb IH SCH (07:48)
[2023-07-20] MEDS: VALIUM 10 MG/2 ML SYRINGE IV PRN (08:30)
[2023-07-20] MEDS: Klor Con PO SCH (08:32)
[2023-07-20] MEDS: FOLATE 1 MG PO SCH (09:50)
[2023-07-20] MEDS: VITAMIN B-1 100 MG PO SCH (09:50)
[2023-07-20] MEDS: THERAGRAN MULTIVITAMIN PO SCH (09:50)
[2023-07-20] MEDS: Sodium Chloride 0.9% 1000 ML 1,000 ML IV STA (10:29)
[2023-07-20] MEDS ORDERED: Valium 5 MG PO PRN (10:38)
--- NOTE | 2023-07-20 12:41 | PCM.NOTE ---
Date and Time: 07/20/23 1234 Subjective Assessment: Mr. Hart is a 58 year-old gentleman with prior alcohol abuse and dependence, CVA, HTN, HLD, and a possible seizure disorder. He presented to ER on 07/19/13 with alcohol intoxication and altered mental status. He was found down at home by his significant other and brought in by EMS. Upon arrival to [place], he was found to be hypoxemic and obtunded. Labs that revealed hypokalemia and and an elevated Cr. ABG revealed adequate ventilation, chest imaging revealed atelecatsis, and brain imaging revealed prior strokes. Pt is resting in bed today awake and alert. He is requesting to eat. Lu in place as he was unresponsive when he can in. Lu discontinued today. Alctic acid is 4.2 and pt refuses anything via IV. Encouraged oral fluid intake and started oral bicarb for Co2 of 15. He is eating and drinking well. He is on the CIWA protocol. He does have some tremors today. Psych consulted today as pt has been admitted for this many times before and leaves [place]. He has not been eating well at home and has only been drinking and smoking. He denies homicidal or suicidal ideation. He is concerned about not having any clothes and we will try to assist him with this. He denies CP, SOB, Abd. pain, N/V/D. - Review of Systems Constitutional: No Fever, No Chills Eyes: No Symptoms Ears, Nose, & Throat: No Symptoms Respiratory: No Cough, No Short Of Breath Cardiac: No Chest Pain, No Edema, No Syncope Abdominal/Gastrointestinal: No Abdominal Pain, No Nausea, No Vomiting, No Diarrhea Genitourinary Symptoms: No Dysuria Musculoskeletal: No Back Pain, No Neck Pain Skin: Other (flushed), No Rash Neurological: Tremors, No Dizziness, No Focal Weakness, No Sensory Changes Psychological: No Symptoms, Alcohol Abuse, Emotional Lability Endocrine: No Symptoms Hematologic/Lymphatic: No Symptoms Immunological/Allergic: No Symptoms Objective Exam General Appearance: no apparent distress, alert Neurologic Exam: alert, oriented x 3, cooperative, normal mood/affect, nml cerebellar function, sensation nml, uncooperative, other (tremors), No motor deficits Skin Exam: normal color, warm, dry Eye Exam: PERRL, EOMI, eyes nml inspection Ears, Nose, Throat Exam: normal ENT inspection, pharynx normal, moist mucous membranes Neck Exam: normal inspection, non-tender, supple, full range of motion Respiratory Exam: normal breath sounds, lungs clear, No respiratory distress Cardiovascular Exam: regular rate/rhythm, normal heart sounds Gastrointestinal/Abdomen Exam: soft, No tenderness, No mass Extremity Exam: normal inspection, normal range of motion Back Exam: normal inspection, normal range of motion, No CVA tenderness, No vertebral tenderness Male Genitalia Exam: deferred Rectal Exam: deferred OBJECTIVE DATA Vital Signs: Vital Signs - 24 hr Temp Pulse Resp BP BP Pulse Ox 07/20/23 12:00 97.5 F 95 H 16 157/83 98 07/20/23 08:30 81 20 143/67 07/20/23 08:02 74 18 94 L 07/20/23 08:00 98.2 F 81 16 143/67 96 07/20/23 07:44 20 07/20/23 04:00 98.7 F 75 17 105/67 94 L 07/20/23 00:00 96.9 F 67 17 104/61 07/19/23 20:43 96.9 F 67 16 104/61 99 07/19/23 20:12 97.7 F 71 18 105/67 94 L 07/19/23 20:01 74 19 89/61 96 07/19/23 20:00 67 16 99 07/19/23 19:53 97 07/19/23 19:45 66 17 95/65 97 07/19/23 19:30 67 16 100/66 95 07/19/23 19:15 57 L 14 91/62 92 L 07/19/23 19:00 58 L 15 98/60 93 L 07/19/23 18:45 57 L 14 99/65 92 L 07/19/23 18:30 70 19 110/60 97 07/19/23 18:15 68 17 112/71 97 07/19/23 18:00 70 18 102/66 96 07/19/23 17:45 96.6 F 68 16 124/72 97 07/19/23 17:30 65 18 108/71 96 07/19/23 17:15 63 17 126/83 96 07/19/23 17:00 66 16 122/79 98 07/19/23 16:45 59 L 16 132/79 96 07/19/23 16:30 64 17 105/74 98 07/19/23 16:15 97.2 F 63 16 117/79 97 07/19/23 16:00 64 17 108/69 97 07/19/23 15:56 59 L 16 104/73 98 07/19/23 15:30 97.2 F 60 19 107/73 07/19/23 15:27 66 19 117/81 100 Pain Assessment - Last Documented Pain Intensity 0 Intake and Output: Intake & Output 07/18/23 07/19/23 07/20/23 07/21/23 11:59 11:59 11:59 11:59 Intake Total 4579 Output Total 2300 Balance 2279 Weight 81.2 kg Lab Results: Lab Results-Last 24 Hours 07/19/23 07/19/23 07/19/23 Range/Units 15:27 15:29 15:35 WBC 6.5 (4.0-10.5) x10^3/uL RBC 5.76 H (4.1-5.6) x10^6/uL Hgb 19.5 H (12.5-18.0) g/dL Hct 57.1 H (42-50) % MCV 99.1 (78-100) fL MCH 33.9 H (26-32) pg MCHC 34.2 (32-36) g/dL RDW 15.1 H (11.5-14.0) % Plt Count 185 (150-450) x10^3/uL MPV 9.4 (7.5-11.0) fL Gran % 40.2 (36.0-66.0) % Immature Gran % (Auto) 0.3 (0.00-0.4) % Nucleat RBC Rel Count 0.0 (0.00-0.1) % Eos # (Auto) 0.04 (0-0.5) x10^3/uL Immature Gran # (Auto) 0.02 (0.00-0.03) x10^3u/L Absolute Lymphs (auto) 3.30 (1.0-4.6) x10^3/uL Absolute Monos (auto) 0.53 (0.0-1.3) x10^3/uL Absolute Nucleated RBC 0.00 (0.00-0.01) x10^3u/L Lymphocytes % 50.5 H (24.0-44.0) % Monocytes % 8.1 (0.0-12.0) % Eosinophils % 0.6 (0.00-5.0) % Basophils % 0.3 (0.0-0.4) % Absolute Granulocytes 2.63 (1.4-6.9) x10^3/uL Basophils # 0.02 (0-0.4) x10^3/uL PT (9.4-12.5) SECONDS INR (0.8-3.0) APTT (25.1-36.5) SECONDS Puncture Site RIGHT RADIAL pCO2 39 (35-45) mmHg pO2 216 H* (75-100) mmHg Base Excess -0.4 (-2.0-2.0) O2 Saturation 92.7 L (94-100) g/dF ABG pH 7.40 (7.35-7.45) ABG HCO3 24.2 (22-28) ABG O2 Sat (Measured) 99.7 (95-100) % Collins Test YES A-a Gradient 448 a/A Ratio 0.33 Hemoglobin 19.8 Carboxyhemoglobin 5.9 (0.0-6.9) % THgb Methemoglobin 1.0 L (1.4-1.5) % Potassium 3.2 L (3.5-5.1) Temperature 37.0 C POC O2 Flow Rate 100 % Sodium (137-145) mmol/L Chloride (98-107) mmol/L Carbon Dioxide (22-30) mmol/L Anion Gap (5-15) MEQ/L BUN (9-20) mg/dL Creatinine (0.66-1.25) mg/dL Estimated GFR ML/MIN Glucose (74-106) mg/dL POC Glucometer (74 to 106) mg/dL Lactic Acid 5.4 H (0.4-2.0) Calcium (8.4-10.2) mg/dL Magnesium (1.6-2.3) mg/dL Total Bilirubin (0.2-1.3) mg/dL AST (17-59) U/L ALT (0-50) U/L Alkaline Phosphatase (38-126) U/L Creatine Kinase (55-170) U/L Troponin I (0.000-0.034) ng/mL Serum Total Protein (6.3-8.2) g/dL Albumin (3.5-5.0) g/dL Procalcitonin (0.030-0.080) ng/mL Urine Color (Yellow) Urine Appearance (Clear) Urine pH (4.6-8.0) Ur Specific [place] (1.005-1.030) Urine Protein (Negative) Urine Glucose (UA) (Negative) mg/dL Urine Ketones (Negative) Urine Blood (Negative) Urine Nitrite (Negative) Urine Bilirubin (Negative) Urine Urobilinogen (0.2) mg/dL Ur Leukocyte Esterase (Negative) U Hyaline Cast (Auto) (0-2) /LPF Urine Microscopic RBC (0-5) /HPF Urine Microscopic WBC (0-5) /HPF Ur Epithelial Cells (None Seen) /HPF Urine Bacteria (None Seen) /HPF Urine Culture Reflexed (NO) Salicylates (2-20) mg/dL Urine Opiates Level (NEGATIVE) Ur Methadone (NEGATIVE) Acetaminophen (10-30) ug/ml Urine Barbiturates (NEGATIVE) Ur Phencyclidine (PCP) (NEGATIVE) Urine Amphetamine (NEGATIVE) U Benzodiazepine Level (NEGATIVE) Urine Cocaine (NEGATIVE) Urine Marijuana (THC) (NEGATIVE) Ethyl Alcohol (0-10) mg/dL 07/19/23 07/19/23 07/19/23 Range/Units 15:35 15:35 15:35 WBC (4.0-10.5) x10^3/uL RBC (4.1-5.6) x10^6/uL Hgb (12.5-18.0) g/dL Hct (42-50) % MCV (78-100) fL MCH (26-32) pg MCHC (32-36) g/dL RDW (11.5-14.0) % Plt Count (150-450) x10^3/uL MPV (7.5-11.0) fL Gran % (36.0-66.0) % Immature Gran % (Auto) (0.00-0.4) % Nucleat RBC Rel Count (0.00-0.1) % Eos # (Auto) (0-0.5) x10^3/uL Immature Gran # (Auto) (0.00-0.03) x10^3u/L Absolute Lymphs (auto) (1.0-4.6) x10^3/uL Absolute Monos (auto) (0.0-1.3) x10^3/uL Absolute Nucleated RBC (0.00-0.01) x10^3u/L Lymphocytes % (24.0-44.0) % Monocytes % (0.0-12.0) % Eosinophils % (0.00-5.0) % Basophils % (0.0-0.4) % Absolute Granulocytes (1.4-6.9) x10^3/uL Basophils # (0-0.4) x10^3/uL PT 10.9 (9.4-12.5) SECONDS INR 1.00 (0.8-3.0) APTT 28.7 (25.1-36.5) SECONDS Puncture Site pCO2 (35-45) mmHg pO2 (75-100) mmHg Base Excess (-2.0-2.0) O2 Saturation (94-100) g/dF ABG pH (7.35-7.45) ABG HCO3 (22-28) ABG O2 Sat (Measured) (95-100) % Collins Test A-a Gradient a/A Ratio Hemoglobin Carboxyhemoglobin (0.0-6.9) % THgb Methemoglobin (1.4-1.5) % Potassium 3.2 L (3.5-5.1) Temperature C POC O2 Flow Rate % Sodium 143 (137-145) mmol/L Chloride 98 (98-107) mmol/L Carbon Dioxide 26 (22-30) mmol/L Anion Gap 21.9 H (5-15) MEQ/L BUN 18 (9-20) mg/dL Creatinine 1.39 H (0.66-1.25) mg/dL Estimated GFR 58.8 ML/MIN Glucose 104 (74-106) mg/dL POC Glucometer (74 to 106) mg/dL Lactic Acid (0.4-2.0) Calcium 9.6 (8.4-10.2) mg/dL Magnesium 2.1 (1.6-2.3) mg/dL Total Bilirubin 0.50 (0.2-1.3) mg/dL AST 53 (17-59) U/L ALT 30 (0-50) U/L Alkaline Phosphatase 120 (38-126) U/L Creatine Kinase (55-170) U/L Troponin I < 0.012 (0.000-0.034) ng/mL Serum Total Protein 8.2 (6.3-8.2) g/dL Albumin 4.9 (3.5-5.0) g/dL Procalcitonin (0.030-0.080) ng/mL Urine Color (Yellow) Urine Appearance (Clear) Urine pH (4.6-8.0) Ur Specific [place] (1.005-1.030) Urine Protein (Negative) Urine Glucose (UA) (Negative) mg/dL Urine Ketones (Negative) Urine Blood (Negative) Urine Nitrite (Negative) Urine Bilirubin (Negative) Urine Urobilinogen (0.2) mg/dL Ur Leukocyte Esterase (Negative) U Hyaline Cast (Auto) (0-2) /LPF Urine Microscopic RBC (0-5) /HPF Urine Microscopic WBC (0-5) /HPF Ur Epithelial Cells (None Seen) /HPF Urine Bacteria (None Seen) /HPF Urine Culture Reflexed (NO) Salicylates (2-20) mg/dL Urine Opiates Level (NEGATIVE) Ur Methadone (NEGATIVE) Acetaminophen (10-30) ug/ml Urine Barbiturates (NEGATIVE) Ur Phencyclidine (PCP) (NEGATIVE) Urine Amphetamine (NEGATIVE) U Benzodiazepine Level (NEGATIVE) Urine Cocaine (NEGATIVE) Urine Marijuana (THC) (NEGATIVE) Ethyl Alcohol 443 H (0-10) mg/dL 07/19/23 07/19/23 07/19/23 Range/Units 15:35 15:46 15:46 WBC (4.0-10.5) x10^3/uL RBC (4.1-5.6) x10^6/uL Hgb (12.5-18.0) g/dL Hct (42-50) % MCV (78-100) fL MCH (26-32) pg MCHC (32-36) g/dL RDW (11.5-14.0) % Plt Count (150-450) x10^3/uL MPV (7.5-11.0) fL Gran % (36.0-66.0) % Immature Gran % (Auto) (0.00-0.4) % Nucleat RBC Rel Count (0.00-0.1) % Eos # (Auto) (0-0.5) x10^3/uL Immature Gran # (Auto) (0.00-0.03) x10^3u/L Absolute Lymphs (auto) (1.0-4.6) x10^3/uL Absolute Monos (auto) (0.0-1.3) x10^3/uL Absolute Nucleated RBC (0.00-0.01) x10^3u/L Lymphocytes % (24.0-44.0) % Monocytes % (0.0-12.0) % Eosinophils % (0.00-5.0) % Basophils % (0.0-0.4) % Absolute Granulocytes (1.4-6.9) x10^3/uL Basophils # (0-0.4) x10^3/uL PT (9.4-12.5) SECONDS INR (0.8-3.0) APTT (25.1-36.5) SECONDS Puncture Site pCO2 (35-45) mmHg pO2 (75-100) mmHg Base Excess (-2.0-2.0) O2 Saturation (94-100) g/dF ABG pH (7.35-7.45) ABG HCO3 (22-28) ABG O2 Sat (Measured) (95-100) % Collins Test A-a Gradient a/A Ratio Hemoglobin Carboxyhemoglobin (0.0-6.9) % THgb Methemoglobin (1.4-1.5) % Potassium (3.5-5.1) Temperature C POC O2 Flow Rate % Sodium (137-145) mmol/L Chloride (98-107) mmol/L Carbon Dioxide (22-30) mmol/L Anion Gap (5-15) MEQ/L BUN (9-20) mg/dL Creatinine (0.66-1.25) mg/dL Estimated GFR ML/MIN Glucose (74-106) mg/dL POC Glucometer (74 to 106) mg/dL Lactic Acid (0.4-2.0) Calcium (8.4-10.2) mg/dL Magnesium (1.6-2.3) mg/dL Total Bilirubin (0.2-1.3) mg/dL AST (17-59) U/L ALT (0-50) U/L Alkaline Phosphatase (38-126) U/L Creatine Kinase (55-170) U/L Troponin I (0.000-0.034) ng/mL Serum Total Protein (6.3-8.2) g/dL Albumin (3.5-5.0) g/dL Procalcitonin (0.030-0.080) ng/mL Urine Color Yellow (Yellow) Urine Appearance Clear (Clear) Urine pH 5.5 (4.6-8.0) Ur Specific [place] 1.015 (1.005-1.030) Urine Protein 100 A (Negative) Urine Glucose (UA) Negative (Negative) mg/dL Urine Ketones Negative (Negative) Urine Blood Trace (Negative) Urine Nitrite Negative (Negative) Urine Bilirubin Negative (Negative) Urine Urobilinogen 0.2 (0.2) mg/dL Ur Leukocyte Esterase Negative (Negative) U Hyaline Cast (Auto) 3-5 A (0-2) /LPF Urine Microscopic RBC 0-2 (0-5) /HPF Urine Microscopic WBC 0-2 (0-5) /HPF Ur Epithelial Cells None Seen (None Seen) /HPF Urine Bacteria None Seen (None Seen) /HPF Urine Culture Reflexed YES (NO) Salicylates < 1.0 L (2-20) mg/dL Urine Opiates Level NEGATIVE (NEGATIVE) Ur Methadone NEGATIVE (NEGATIVE) Acetaminophen < 10 L (10-30) ug/ml Urine Barbiturates NEGATIVE (NEGATIVE) Ur Phencyclidine (PCP) NEGATIVE (NEGATIVE) Urine Amphetamine NEGATIVE (NEGATIVE) U Benzodiazepine Level NEGATIVE (NEGATIVE) Urine Cocaine NEGATIVE (NEGATIVE) Urine Marijuana (THC) NEGATIVE (NEGATIVE) Ethyl Alcohol (0-10) mg/dL 07/19/23 07/19/23 07/19/23 Range/Units 17:06 17:06 18:40 WBC (4.0-10.5) x10^3/uL RBC (4.1-5.6) x10^6/uL Hgb (12.5-18.0) g/dL Hct (42-50) % MCV (78-100) fL MCH (26-32) pg MCHC (32-36) g/dL RDW (11.5-14.0) % Plt Count (150-450) x10^3/uL MPV (7.5-11.0) fL Gran % (36.0-66.0) % Immature Gran % (Auto) (0.00-0.4) % Nucleat RBC Rel Count (0.00-0.1) % Eos # (Auto) (0-0.5) x10^3/uL Immature Gran # (Auto) (0.00-0.03) x10^3u/L Absolute Lymphs (auto) (1.0-4.6) x10^3/uL Absolute Monos (auto) (0.0-1.3) x10^3/uL Absolute Nucleated RBC (0.00-0.01) x10^3u/L Lymphocytes % (24.0-44.0) % Monocytes % (0.0-12.0) % Eosinophils % (0.00-5.0) % Basophils % (0.0-0.4) % Absolute Granulocytes (1.4-6.9) x10^3/uL Basophils # (0-0.4) x10^3/uL PT (9.4-12.5) SECONDS INR (0.8-3.0) APTT (25.1-36.5) SECONDS Puncture Site LEFT RADIAL pCO2 45 (35-45) mmHg pO2 82 (75-100) mmHg Base Excess -1.9 (-2.0-2.0) O2 Saturation 89.9 L (94-100) g/dF ABG pH 7.34 L (7.35-7.45) ABG HCO3 24.3 (22-28) ABG O2 Sat (Measured) 96.1 (95-100) % Collins Test NOT APPLICABLE A-a Gradient 118 a/A Ratio 0.41 Hemoglobin 19.1 Carboxyhemoglobin 5.5 (0.0-6.9) % THgb Methemoglobin 1.0 L (1.4-1.5) % Potassium 2.7 L* 3.0 L* (3.5-5.1) Temperature 37.0 C POC O2 Flow Rate 36 % Sodium 144 (137-145) mmol/L Chloride 106 (98-107) mmol/L Carbon Dioxide 21 L (22-30) mmol/L Anion Gap 20.1 H (5-15) MEQ/L BUN 17 (9-20) mg/dL Creatinine 1.13 (0.66-1.25) mg/dL Estimated GFR 75.3 ML/MIN Glucose 87 (74-106) mg/dL POC Glucometer (74 to 106) mg/dL Lactic Acid 5.0 H (0.4-2.0) Calcium 8.7 (8.4-10.2) mg/dL Magnesium 2.0 (1.6-2.3) mg/dL Total Bilirubin (0.2-1.3) mg/dL AST (17-59) U/L ALT (0-50) U/L Alkaline Phosphatase (38-126) U/L Creatine Kinase (55-170) U/L Troponin I < 0.012 (0.000-0.034) ng/mL Serum Total Protein (6.3-8.2) g/dL Albumin (3.5-5.0) g/dL Procalcitonin (0.030-0.080) ng/mL Urine Color (Yellow) Urine Appearance (Clear) Urine pH (4.6-8.0) Ur Specific [place] (1.005-1.030) Urine Protein (Negative) Urine Glucose (UA) (Negative) mg/dL Urine Ketones (Negative) Urine Blood (Negative) Urine Nitrite (Negative) Urine Bilirubin (Negative) Urine Urobilinogen (0.2) mg/dL Ur Leukocyte Esterase (Negative) U Hyaline Cast (Auto) (0-2) /LPF Urine Microscopic RBC (0-5) /HPF Urine Microscopic WBC (0-5) /HPF Ur Epithelial Cells (None Seen) /HPF Urine Bacteria (None Seen) /HPF Urine Culture Reflexed (NO) Salicylates (2-20) mg/dL Urine Opiates Level (NEGATIVE) Ur Methadone (NEGATIVE) Acetaminophen (10-30) ug/ml Urine Barbiturates (NEGATIVE) Ur Phencyclidine (PCP) (NEGATIVE) Urine Amphetamine (NEGATIVE) U Benzodiazepine Level (NEGATIVE) Urine Cocaine (NEGATIVE) Urine Marijuana (THC) (NEGATIVE) Ethyl Alcohol 436 H (0-10) mg/dL 07/19/23 07/19/23 07/20/23 Range/Units 23:35 23:41 05:24 WBC (4.0-10.5) x10^3/uL RBC (4.1-5.6) x10^6/uL Hgb (12.5-18.0) g/dL Hct (42-50) % MCV (78-100) fL MCH (26-32) pg MCHC (32-36) g/dL RDW (11.5-14.0) % Plt Count (150-450) x10^3/uL MPV (7.5-11.0) fL Gran % (36.0-66.0) % Immature Gran % (Auto) (0.00-0.4) % Nucleat RBC Rel Count (0.00-0.1) % Eos # (Auto) (0-0.5) x10^3/uL Immature Gran # (Auto) (0.00-0.03) x10^3u/L Absolute Lymphs (auto) (1.0-4.6) x10^3/uL Absolute Monos (auto) (0.0-1.3) x10^3/uL Absolute Nucleated RBC (0.00-0.01) x10^3u/L Lymphocytes % (24.0-44.0) % Monocytes % (0.0-12.0) % Eosinophils % (0.00-5.0) % Basophils % (0.0-0.4) % Absolute Granulocytes (1.4-6.9) x10^3/uL Basophils # (0-0.4) x10^3/uL PT (9.4-12.5) SECONDS INR (0.8-3.0) APTT (25.1-36.5) SECONDS Puncture Site pCO2 (35-45) mmHg pO2 (75-100) mmHg Base Excess (-2.0-2.0) O2 Saturation (94-100) g/dF ABG pH (7.35-7.45) ABG HCO3 (22-28) ABG O2 Sat (Measured) (95-100) % Collins Test A-a Gradient a/A Ratio Hemoglobin Carboxyhemoglobin (0.0-6.9) % THgb Methemoglobin (1.4-1.5) % Potassium 3.1 L (3.5-5.1) Temperature C POC O2 Flow Rate % Sodium 138 (137-145) mmol/L Chloride 108 H (98-107) mmol/L Carbon Dioxide 15 L* (22-30) mmol/L Anion Gap 18.1 H (5-15) MEQ/L BUN 13 (9-20) mg/dL Creatinine 0.97 (0.66-1.25) mg/dL Estimated GFR 90.5 ML/MIN Glucose 157 H (74-106) mg/dL POC Glucometer (74 to 106) mg/dL Lactic Acid 3.9 H (0.4-2.0) Calcium 8.5 (8.4-10.2) mg/dL Magnesium (1.6-2.3) mg/dL Total Bilirubin 0.40 (0.2-1.3) mg/dL AST 33 (17-59) U/L ALT 22 (0-50) U/L Alkaline Phosphatase 87 (38-126) U/L Creatine Kinase (55-170) U/L Troponin I < 0.012 (0.000-0.034) ng/mL Serum Total Protein 6.6 (6.3-8.2) g/dL Albumin 3.9 (3.5-5.0) g/dL Procalcitonin (0.030-0.080) ng/mL Urine Color (Yellow) Urine Appearance (Clear) Urine pH (4.6-8.0) Ur Specific [place] (1.005-1.030) Urine Protein (Negative) Urine Glucose (UA) (Negative) mg/dL Urine Ketones (Negative) Urine Blood (Negative) Urine Nitrite (Negative) Urine Bilirubin (Negative) Urine Urobilinogen (0.2) mg/dL Ur Leukocyte Esterase (Negative) U Hyaline Cast (Auto) (0-2) /LPF Urine Microscopic RBC (0-5) /HPF Urine Microscopic WBC (0-5) /HPF Ur Epithelial Cells (None Seen) /HPF Urine Bacteria (None Seen) /HPF Urine Culture Reflexed (NO) Salicylates (2-20) mg/dL Urine Opiates Level (NEGATIVE) Ur Methadone (NEGATIVE) Acetaminophen (10-30) ug/ml Urine Barbiturates (NEGATIVE) Ur Phencyclidine (PCP) (NEGATIVE) Urine Amphetamine (NEGATIVE) U Benzodiazepine Level (NEGATIVE) Urine Cocaine (NEGATIVE) Urine Marijuana (THC) (NEGATIVE) Ethyl Alcohol (0-10) mg/dL 07/20/23 07/20/23 07/20/23 Range/Units 05:24 05:24 07:45 WBC 8.2 (4.0-10.5) x10^3/uL RBC 4.89 (4.1-5.6) x10^6/uL Hgb 16.2 (12.5-18.0) g/dL Hct 49.7 (42-50) % MCV 101.6 H (78-100) fL MCH 33.1 H (26-32) pg MCHC 32.6 (32-36) g/dL RDW 15.3 H (11.5-14.0) % Plt Count 155 (150-450) x10^3/uL MPV 9.3 (7.5-11.0) fL Gran % (36.0-66.0) % Immature Gran % (Auto) (0.00-0.4) % Nucleat RBC Rel Count (0.00-0.1) % Eos # (Auto) (0-0.5) x10^3/uL Immature Gran # (Auto) (0.00-0.03) x10^3u/L Absolute Lymphs (auto) (1.0-4.6) x10^3/uL Absolute Monos (auto) (0.0-1.3) x10^3/uL Absolute Nucleated RBC (0.00-0.01) x10^3u/L Lymphocytes % (24.0-44.0) % Monocytes % (0.0-12.0) % Eosinophils % (0.00-5.0) % Basophils % (0.0-0.4) % Absolute Granulocytes (1.4-6.9) x10^3/uL Basophils # (0-0.4) x10^3/uL PT (9.4-12.5) SECONDS INR (0.8-3.0) APTT (25.1-36.5) SECONDS Puncture Site pCO2 (35-45) mmHg pO2 (75-100) mmHg Base Excess (-2.0-2.0) O2 Saturation (94-100) g/dF ABG pH (7.35-7.45) ABG HCO3 (22-28) ABG O2 Sat (Measured) (95-100) % Collins Test A-a Gradient a/A Ratio Hemoglobin Carboxyhemoglobin (0.0-6.9) % THgb Methemoglobin (1.4-1.5) % Potassium (3.5-5.1) Temperature C POC O2 Flow Rate % Sodium (137-145) mmol/L Chloride (98-107) mmol/L Carbon Dioxide (22-30) mmol/L Anion Gap (5-15) MEQ/L BUN (9-20) mg/dL Creatinine (0.66-1.25) mg/dL Estimated GFR ML/MIN Glucose (74-106) mg/dL POC Glucometer 142 H (74 to 106) mg/dL Lactic Acid (0.4-2.0) Calcium (8.4-10.2) mg/dL Magnesium 1.8 (1.6-2.3) mg/dL Total Bilirubin (0.2-1.3) mg/dL AST (17-59) U/L ALT (0-50) U/L Alkaline Phosphatase (38-126) U/L Creatine Kinase (55-170) U/L Troponin I (0.000-0.034) ng/mL Serum Total Protein (6.3-8.2) g/dL Albumin (3.5-5.0) g/dL Procalcitonin (0.030-0.080) ng/mL Urine Color (Yellow) Urine Appearance (Clear) Urine pH (4.6-8.0) Ur Specific [place] (1.005-1.030) Urine Protein (Negative) Urine Glucose (UA) (Negative) mg/dL Urine Ketones (Negative) Urine Blood (Negative) Urine Nitrite (Negative) Urine Bilirubin (Negative) Urine Urobilinogen (0.2) mg/dL Ur Leukocyte Esterase (Negative) U Hyaline Cast (Auto) (0-2) /LPF Urine Microscopic RBC (0-5) /HPF Urine Microscopic WBC (0-5) /HPF Ur Epithelial Cells (None Seen) /HPF Urine Bacteria (None Seen) /HPF Urine Culture Reflexed (NO) Salicylates (2-20) mg/dL Urine Opiates Level (NEGATIVE) Ur Methadone (NEGATIVE) Acetaminophen (10-30) ug/ml Urine Barbiturates (NEGATIVE) Ur Phencyclidine (PCP) (NEGATIVE) Urine Amphetamine (NEGATIVE) U Benzodiazepine Level (NEGATIVE) Urine Cocaine (NEGATIVE) Urine Marijuana (THC) (NEGATIVE) Ethyl Alcohol (0-10) mg/dL 07/20/23 07/20/23 07/20/23 Range/Units 07:50 09:00 10:38 WBC (4.0-10.5) x10^3/uL RBC (4.1-5.6) x10^6/uL Hgb (12.5-18.0) g/dL Hct (42-50) % MCV (78-100) fL MCH (26-32) pg MCHC (32-36) g/dL RDW (11.5-14.0) % Plt Count (150-450) x10^3/uL MPV (7.5-11.0) fL Gran % (36.0-66.0) % Immature Gran % (Auto) (0.00-0.4) % Nucleat RBC Rel Count (0.00-0.1) % Eos # (Auto) (0-0.5) x10^3/uL Immature Gran # (Auto) (0.00-0.03) x10^3u/L Absolute Lymphs (auto) (1.0-4.6) x10^3/uL Absolute Monos (auto) (0.0-1.3) x10^3/uL Absolute Nucleated RBC (0.00-0.01) x10^3u/L Lymphocytes % (24.0-44.0) % Monocytes % (0.0-12.0) % Eosinophils % (0.00-5.0) % Basophils % (0.0-0.4) % Absolute Granulocytes (1.4-6.9) x10^3/uL Basophils # (0-0.4) x10^3/uL PT (9.4-12.5) SECONDS INR (0.8-3.0) APTT (25.1-36.5) SECONDS Puncture Site pCO2 (35-45) mmHg pO2 (75-100) mmHg Base Excess (-2.0-2.0) O2 Saturation (94-100) g/dF ABG pH (7.35-7.45) ABG HCO3 (22-28) ABG O2 Sat (Measured) (95-100) % Collins Test A-a Gradient a/A Ratio Hemoglobin Carboxyhemoglobin (0.0-6.9) % THgb Methemoglobin (1.4-1.5) % Potassium (3.5-5.1) Temperature C POC O2 Flow Rate % Sodium (137-145) mmol/L Chloride (98-107) mmol/L Carbon Dioxide (22-30) mmol/L Anion Gap (5-15) MEQ/L BUN (9-20) mg/dL Creatinine (0.66-1.25) mg/dL Estimated GFR ML/MIN Glucose (74-106) mg/dL POC Glucometer (74 to 106) mg/dL Lactic Acid 4.2 H (0.4-2.0) Calcium (8.4-10.2) mg/dL Magnesium (1.6-2.3) mg/dL Total Bilirubin (0.2-1.3) mg/dL AST (17-59) U/L ALT (0-50) U/L Alkaline Phosphatase (38-126) U/L Creatine Kinase 75 (55-170) U/L Troponin I (0.000-0.034) ng/mL Serum Total Protein (6.3-8.2) g/dL Albumin (3.5-5.0) g/dL Procalcitonin (0.030-0.080) ng/mL Urine Color (Yellow) Urine Appearance (Clear) Urine pH (4.6-8.0) Ur Specific [place] (1.005-1.030) Urine Protein (Negative) Urine Glucose (UA) (Negative) mg/dL Urine Ketones (Negative) Urine Blood (Negative) Urine Nitrite (Negative) Urine Bilirubin (Negative) Urine Urobilinogen (0.2) mg/dL Ur Leukocyte Esterase (Negative) U Hyaline Cast (Auto) (0-2) /LPF Urine Microscopic RBC (0-5) /HPF Urine Microscopic WBC (0-5) /HPF Ur Epithelial Cells (None Seen) /HPF Urine Bacteria (None Seen) /HPF Urine Culture Reflexed (NO) Salicylates (2-20) mg/dL Urine Opiates Level (NEGATIVE) Ur Methadone (NEGATIVE) Acetaminophen (10-30) ug/ml Urine Barbiturates (NEGATIVE) Ur Phencyclidine (PCP) (NEGATIVE) Urine Amphetamine (NEGATIVE) U Benzodiazepine Level (NEGATIVE) Urine Cocaine (NEGATIVE) Urine Marijuana (THC) (NEGATIVE) Ethyl Alcohol < 10 (0-10) mg/dL 07/20/23 07/20/23 Range/Units 11:48 Unknown WBC (4.0-10.5) x10^3/uL RBC (4.1-5.6) x10^6/uL Hgb (12.5-18.0) g/dL Hct (42-50) % MCV (78-100) fL MCH (26-32) pg MCHC (32-36) g/dL RDW (11.5-14.0) % Plt Count (150-450) x10^3/uL MPV (7.5-11.0) fL Gran % (36.0-66.0) % Immature Gran % (Auto) (0.00-0.4) % Nucleat RBC Rel Count (0.00-0.1) % Eos # (Auto) (0-0.5) x10^3/uL Immature Gran # (Auto) (0.00-0.03) x10^3u/L Absolute Lymphs (auto) (1.0-4.6) x10^3/uL Absolute Monos (auto) (0.0-1.3) x10^3/uL Absolute Nucleated RBC (0.00-0.01) x10^3u/L Lymphocytes % (24.0-44.0) % Monocytes % (0.0-12.0) % Eosinophils % (0.00-5.0) % Basophils % (0.0-0.4) % Absolute Granulocytes (1.4-6.9) x10^3/uL Basophils # (0-0.4) x10^3/uL PT (9.4-12.5) SECONDS INR (0.8-3.0) APTT (25.1-36.5) SECONDS Puncture Site pCO2 (35-45) mmHg pO2 (75-100) mmHg Base Excess (-2.0-2.0) O2 Saturation (94-100) g/dF ABG pH (7.35-7.45) ABG HCO3 (22-28) ABG O2 Sat (Measured) (95-100) % Collins Test A-a Gradient a/A Ratio Hemoglobin Carboxyhemoglobin (0.0-6.9) % THgb Methemoglobin (1.4-1.5) % Potassium (3.5-5.1) Temperature C POC O2 Flow Rate % Sodium (137-145) mmol/L Chloride (98-107) mmol/L Carbon Dioxide (22-30) mmol/L Anion Gap (5-15) MEQ/L BUN (9-20) mg/dL Creatinine (0.66-1.25) mg/dL Estimated GFR ML/MIN Glucose (74-106) mg/dL POC Glucometer 145 H (74 to 106) mg/dL Lactic Acid (0.4-2.0) Calcium (8.4-10.2) mg/dL Magnesium (1.6-2.3) mg/dL Total Bilirubin (0.2-1.3) mg/dL AST (17-59) U/L ALT (0-50) U/L Alkaline Phosphatase (38-126) U/L Creatine Kinase (55-170) U/L Troponin I (0.000-0.034) ng/mL Serum Total Protein (6.3-8.2) g/dL Albumin (3.5-5.0) g/dL Procalcitonin 0.070 (0.030-0.080) ng/mL Urine Color (Yellow) Urine Appearance (Clear) Urine pH (4.6-8.0) Ur Specific [place] (1.005-1.030) Urine Protein (Negative) Urine Glucose (UA) (Negative) mg/dL Urine Ketones (Negative) Urine Blood (Negative) Urine Nitrite (Negative) Urine Bilirubin (Negative) Urine Urobilinogen (0.2) mg/dL Ur Leukocyte Esterase (Negative) U Hyaline Cast (Auto) (0-2) /LPF Urine Microscopic RBC (0-5) /HPF Urine Microscopic WBC (0-5) /HPF Ur Epithelial Cells (None Seen) /HPF Urine Bacteria (None Seen) /HPF Urine Culture Reflexed (NO) Salicylates (2-20) mg/dL Urine Opiates Level (NEGATIVE) Ur Methadone (NEGATIVE) Acetaminophen (10-30) ug/ml Urine Barbiturates (NEGATIVE) Ur Phencyclidine (PCP) (NEGATIVE) Urine Amphetamine (NEGATIVE) U Benzodiazepine Level (NEGATIVE) Urine Cocaine (NEGATIVE) Urine Marijuana (THC) (NEGATIVE) Ethyl Alcohol (0-10) mg/dL Radiology Exams: Radiology Procedures Category Date Time Status CHEST WITHOUT CONTRAST [CT] Stat Exams 07/19/23 15:37 Completed HEAD WITHOUT CONTRAST [CT] Stat Exams 07/19/23 15:36 Completed Multi-Disciplinary Progress Notes: Multi-Disciplinary Progress Notes 07/19/23 15:37 Respiratory Note by Sarah Wallace DRAWN AND REPORTED TO DR PATTERSON. PT ON 100% NRB W/ O2 SAT 100%. PT CHANGED OVER TO 4LPM VIA NASAL CANNULA. O2 SAT 97% . Initialized on 07/19/23 15:37 - END OF NOTE Assessment/Plan (1) Alcohol intoxication Current Visit: Yes Status: Acute Assessment & Plan: - alcohol level on admission was 136 - 07/20 alcohol level <10 - CIWA protocol, thiamine, MVI, folic acid - tele - seizure precautions - bed rest (2) Alcohol abuse Current Visit: No Status: Chronic Assessment & Plan: - chronic alcohol abuse - psych consult - encourage cessation Code(s): F10.10 - ALCOHOL ABUSE, UNCOMPLICATED (3) Lactic acid acidosis Current Visit: Yes Status: Acute Assessment & Plan: - On admission 07/19- LA 5.4 @ 15:27, 5.0 @ 17:06, and 3.9 @ 23:35 - 3 IVF 1 L boluses gave in ER - LA 4.2 07/20- pt refused IVF - encouraged oral hydration - 2:2 ETOH abuse Code(s): E87.20 - ACIDOSIS, UNSPECIFIED (4) Carbon dioxide, decreased level Current Visit: Yes Status: Acute Assessment & Plan: - Pt unresponsive on admission - 2:2 ETOH abuse - refused bicarb gtt - oral bicarb started Code(s): R79.81 - ABNORMAL BLOOD-GAS LEVEL (5) Atelectasis Current Visit: Yes Status: Acute Assessment & Plan: - Chest CT 07/19 Impression: 1. Bilateral dependent atelectasis, coronary calcifications, degenerative spondylosis, fatty liver, and old granulomatous disease. 2. Remaining CT chest without contrast exam is negative. - Procal 0.70- antibiotics not needed - RA 98% (6) Hypokalemia Current Visit: Yes Status: Acute Assessment & Plan: -K+ 3.1 replaced - daily potassium added Code(s): E87.6 - HYPOKALEMIA (7) Altered mental status associated with intoxication Current Visit: Yes Status: Resolved Assessment & Plan: -resolved - pt is awake and alert - lu removed Code(s): QWD6167 - (8) HTN (hypertension) Current Visit: Yes Status: Acute Assessment & Plan: - Continue home meds - Monitor Code(s): I10 - ESSENTIAL (PRIMARY) HYPERTENSION (9) MARISSA (acute kidney injury) Current Visit: Yes Status: Resolved Assessment & Plan: - resolved Code(s): N17.9 - ACUTE KIDNEY FAILURE, UNSPECIFIED (10) Dehydration Current Visit: Yes Status: Acute Assessment & Plan: - anion gap 18.1 - refused IVF - encouraged oral rehydration Code(s): E86.0 - DEHYDRATION (11) Nicotine dependence Current Visit: Yes Status: Chronic Assessment & Plan: - advised cessation - nicotine patch Code(s): F17.200 - NICOTINE DEPENDENCE, UNSPECIFIED, UNCOMPLICATED (12) Fatty liver Current Visit: Yes Status: Chronic Assessment & Plan: - as seen on CT - 2:2 ETOH abuse Code(s): K76.0 - FATTY (CHANGE OF) LIVER, NOT ELSEWHERE CLASSIFIED (13) Seizure disorder Current Visit: Yes Status: Chronic Assessment & Plan: - continue keppra - seizure precautions - no witnessed seizures on admission Code(s): G40.909 - EPILEPSY, UNSP, NOT INTRACTABLE, WITHOUT STATUS EPILEPTICUS (14) Non-compliance Current Visit: Yes Status: Acute Assessment & Plan: - Pt states he is unsure when he last took any of his home meds. He admits to not taking them regularly. VTE: SCD Next of KIN: Imer Metz [phone] D/C plan: 2-3 days Code status: Full Code(s): Z91.199 - PT NONCOMPL WITH OTHER MED TRTMT AND REGIMEN D/T UNSP REASON
[2023-07-20 16:31] VITALS: RESP 16
[2023-07-20 16:52] VITALS: BP 177/91; TEMP 98.2
[2023-07-20] MEDS: Neurontin PO SCH (17:06)
[2023-07-20] MEDS: Nicoderm CQ 21 MG TOP SCH (17:06)
[2023-07-20] MEDS: Sodium Bicarbonate 50 MEQ/50 ML VIAL*** 150 MEQ in Dextrose 5%/Water IV Soln. 1000 ML 1... IV SCH (17:33)
[2023-07-20 19:06] VITALS: PULSE 91; O2SAT 96
[2023-07-20] MEDS ORDERED: KEPPRA PO SCH (22:00)
[2023-07-20] MEDS ORDERED: CLONIDINE 0.1 MG TABLET PO SCH (22:00)
[2023-07-20] MEDS ORDERED: NORVASC 5 MG PO SCH (22:00)
[2023-07-20] MEDS ORDERED: NON-FORMULARY ITEM (Levetiracetam [Keppra] 750 MG Tablet) PO SCH (22:00)
[2023-07-20] MEDS ORDERED: LOPID PO SCH (22:00)
[2023-07-20] MEDS ORDERED: Coreg 3.125 MG PO SCH (22:00)
[2023-07-20] MEDS ORDERED: SODIUM BICARBONATE PO SCH (22:00)
[2023-07-21] MEDS ORDERED: Cozaar 50 MG PO SCH (10:00)
[2023-07-21] MEDS ORDERED: Protonix 40MG Tablet PO SCH (10:00)
[2023-07-21] MEDS ORDERED: Lexapro PO SCH (10:00)
[2023-07-21] MEDS ORDERED: NON-FORMULARY ITEM (Losartan Potassium [Cozaar] 100 MG Tablet) PO SCH (10:00)
[2023-07-21] MEDS ORDERED: OMEPRAZOLE PO SCH ×2 (10:00)
[2023-07-21] MEDS ORDERED: NON-FORMULARY ITEM (Escitalopram Oxalate [Lexapro] 20 MG Tablet) PO SCH (10:00)
[2023-07-21] MEDS ORDERED: Klor Con PO SCH (10:00)
[2023-07-21] MEDS ORDERED: LASIX 20 MG PO SCH (10:00)
--- NOTE | 2023-07-21 13:04 | PCM.DS ---
Discharge Summary Date of Admission: 07/19/23 20:00 Date of Discharge: 07/20/23 Admitting Physician: CLEVELAND HOGAN MD Consults: Consults on Case 07/20/23 11:00 Psychiatric Consult STAT 07/20/23 11:02 Tele-Health Consult ROUTINE Primary Care Provider: AXEL CISNEROS <SANDRA SANDERSON - Last Filed: 07/21/23 13:07> Date of Admission: 07/19/23 20:00 Date of Discharge: 07/20/23 Admitting Physician: CLEVELAND HOGAN MD Consults: Consults on Case 07/20/23 11:00 Psychiatric Consult STAT 07/20/23 11:02 Tele-Health Consult ROUTINE Primary Care Provider: AXEL CISNEROS <ERIN QUACH - Last Filed: 07/21/23 17:46> Allergies <SANDRA SANDERSON - Last Filed: 07/21/23 13:07> <ERIN QUACH - Last Filed: 07/21/23 17:46> Allergies No Known Drug Allergies Allergy (Verified 03/23/23 12:55) Hospital Summary - Hospital Course Hospital Course: Mr. Hart is a 58 year-old gentleman with prior alcohol abuse and dependence, CVA, HTN, HLD, and a possible seizure disorder. He presented to ER on 07/19/13 with alcohol intoxication and altered mental status. He was found down at home by his significant other and brought in by EMS. Upon arrival to [place], he was found to be hypoxemic and obtunded. Labs that revealed hypokalemia and and an elevated Cr. ABG revealed adequate ventilation, chest imaging revealed atelecatsis, and brain imaging revealed prior strokes. Pt is resting in bed today awake and alert. He is requesting to eat. Lu in place as he was unresponsive when he can in. Lu discontinued today. Alctic acid is 4.2 and pt refuses anything via IV. Encouraged oral fluid intake and started oral bicarb for Co2 of 15. He is eating and drinking well. He is on the CIWA protocol. He does have some tremors today. Psych consulted today as pt has been admitted for this many times before and leaves AMA. He has not been eating well at home and has only been drinking and smoking. He denies homicidal or suicidal ideation. He is concerned about not having any clothes and we will try to assist him with this. He denies CP, SOB, Abd. pain, N/V/D. Pt left AMA last night after shift done. Made aware next day and this note was written based on events from yesterday. - Vitals & Intake/Output Vital Signs: Vital Signs Temperature 98.2 F 07/20/23 16:00 Pulse Rate 91 H 07/20/23 19:03 Respiratory Rate 16 07/20/23 19:03 Blood Pressure 177/91 07/20/23 16:00 O2 Sat by Pulse Oximetry 96 07/20/23 19:03 Intake & Output: Intake & Output 07/19/23 07/20/23 07/21/23 07/22/23 11:59 11:59 11:59 11:59 Intake Total 4579 1200 Output Total 2300 Balance 2279 1200 Weight 81.2 kg - Lab Result Diagrams: 07/20/23 05:24 07/20/23 05:24 Micro Results-Entire Visit: Microbiology 07/19/23 15:46 Urine Culture - Final Catherized NO GROWTH 07/19/23 15:46 Urine Culture - Final Urine, Void NO GROWTH - Radiology Exams Ordered Rad Exams-Entire Visit: Radiology Procedures Category Date Time Status CHEST WITHOUT CONTRAST [CT] Stat Exams 07/19/23 15:37 Completed HEAD WITHOUT CONTRAST [CT] Stat Exams 07/19/23 15:36 Completed - Procedures and Test Procedures and Tests throughout Hospitalization: Therapy Orders & Screens 07/19/23 19:44 Oxygen Nasal Cannula 2 lpm Comment: 07/19/23 23:48 Respiratory Therapy Assessment DAILY Comment: Diagnosis: alcohol intoxication 07/20/23 07:30 RT Miscellaneous Order ROUTINE Comment: Physician Instructions: Reason For Exam: wean oxygen Keep O2 > 92% Diagnosis: alcohol intoxication <SANDRA SANDERSON - Last Filed: 07/21/23 13:07> - Vitals & Intake/Output Vital Signs: Vital Signs Temperature 98.2 F 07/20/23 16:00 Pulse Rate 91 H 07/20/23 19:03 Respiratory Rate 16 07/20/23 19:03 Blood Pressure 177/91 07/20/23 16:00 O2 Sat by Pulse Oximetry 96 07/20/23 19:03 Intake & Output: Intake & Output 07/19/23 07/20/23 07/21/23 07/22/23 11:59 11:59 11:59 11:59 Intake Total 4579 1200 Output Total 2300 Balance 2279 1200 Weight 81.2 kg - Lab Result Diagrams: 07/20/23 05:24 07/20/23 05:24 Micro Results-Entire Visit: Microbiology 07/19/23 15:46 Urine Culture - Final Catherized NO GROWTH 07/19/23 15:46 Urine Culture - Final Urine, Void NO GROWTH - Procedures and Test Procedures and Tests throughout Hospitalization: Therapy Orders & Screens 07/19/23 19:44 Oxygen Nasal Cannula 2 lpm Comment: 07/19/23 23:48 Respiratory Therapy Assessment DAILY Comment: Diagnosis: alcohol intoxication 07/20/23 07:30 RT Miscellaneous Order ROUTINE Comment: Physician Instructions: Reason For Exam: wean oxygen Keep O2 > 92% Diagnosis: alcohol intoxication <ERIN QUACH - Last Filed: 07/21/23 17:46> Discharge Exam General Appearance: no apparent distress, alert Neurologic Exam: alert, oriented x 3, nml cerebellar function, sensation nml, agitation, uncooperative, No motor deficits Eye Exam: PERRL, EOMI, eyes nml inspection Ears, Nose, Throat Exam: normal ENT inspection, pharynx normal, moist mucous membranes Neck Exam: normal inspection, non-tender, supple, full range of motion Respiratory Exam: normal breath sounds, lungs clear, No respiratory distress Cardiovascular Exam: regular rate/rhythm, normal heart sounds Gastrointestinal/Abdomen Exam: soft, No tenderness, No mass Male Genitalia Exam: deferred Rectal Exam: deferred Back Exam: normal inspection, normal range of motion, No CVA tenderness, No vertebral tenderness Extremity Exam: normal inspection, normal range of motion Skin Exam: normal color, warm, dry <SANDRA SANDERSON - Last Filed: 07/21/23 13:07> Final Diagnosis/Problem List - Final Discharge Diagnosis/Problem (1) Alcohol intoxication Status: Acute (2) Alcohol abuse Status: Chronic Code(s): F10.10 - ALCOHOL ABUSE, UNCOMPLICATED (3) Lactic acid acidosis Status: Acute Code(s): E87.20 - ACIDOSIS, UNSPECIFIED (4) Carbon dioxide, decreased level Status: Acute Code(s): R79.81 - ABNORMAL BLOOD-GAS LEVEL (5) Atelectasis Status: Acute (6) Hypokalemia Status: Acute Code(s): E87.6 - HYPOKALEMIA (7) Altered mental status associated with intoxication Status: Resolved Code(s): [id number] - (8) HTN (hypertension) Status: Acute Code(s): I10 - ESSENTIAL (PRIMARY) HYPERTENSION (9) MARISSA (acute kidney injury) Status: Resolved Code(s): N17.9 - ACUTE KIDNEY FAILURE, UNSPECIFIED (10) Dehydration Status: Acute Code(s): E86.0 - DEHYDRATION (11) Nicotine dependence Status: Chronic Code(s): F17.200 - NICOTINE DEPENDENCE, UNSPECIFIED, UNCOMPLICATED (12) Fatty liver Status: Chronic Code(s): K76.0 - FATTY (CHANGE OF) LIVER, NOT ELSEWHERE CLASSIFIED (13) Seizure disorder Status: Chronic Code(s): G40.909 - EPILEPSY, UNSP, NOT INTRACTABLE, WITHOUT STATUS EPILEPTICUS (14) Non-compliance Status: Acute Assessment & Plan: (1) Alcohol intoxication Current Visit: Yes Status: Acute Assessment & Plan: - alcohol level on admission was 136 - 07/20 alcohol level <10 - CIWA protocol, thiamine, MVI, folic acid - tele - seizure precautions - bed rest (2) Alcohol abuse Current Visit: No Status: Chronic Assessment & Plan: - chronic alcohol abuse - psych consult - encourage cessation Code(s): F10.10 - ALCOHOL ABUSE, UNCOMPLICATED (3) Lactic acid acidosis Current Visit: Yes Status: Acute Assessment & Plan: - On admission 07/19- LA 5.4 @ 15:27, 5.0 @ 17:06, and 3.9 @ 23:35 - 3 IVF 1 L boluses gave in ER - LA 4.2 07/20- pt refused IVF - encouraged oral hydration - 2:2 ETOH abuse Code(s): E87.20 - ACIDOSIS, UNSPECIFIED (4) Carbon dioxide, decreased level Current Visit: Yes Status: Acute Assessment & Plan: - Pt unresponsive on admission - 2:2 ETOH abuse - refused bicarb gtt - oral bicarb started Code(s): R79.81 - ABNORMAL BLOOD-GAS LEVEL (5) Atelectasis Current Visit: Yes Status: Acute Assessment & Plan: - Chest CT 2/16 Impression: 1. Bilateral dependent atelectasis, coronary calcifications, degenerative spondylosis, fatty liver, and old granulomatous disease. 2. Remaining CT chest without contrast exam is negative. - Procal 0.70- antibiotics not needed - RA 98% (6) Hypokalemia Current Visit: Yes Status: Acute Assessment & Plan: -K+ 3.1 replaced - daily potassium added Code(s): E87.6 - HYPOKALEMIA (7) Altered mental status associated with intoxication Current Visit: Yes Status: Resolved Assessment & Plan: -resolved - pt is awake and alert - lu removed Code(s): RKK9507 - (8) HTN (hypertension) Current Visit: Yes Status: Acute Assessment & Plan: - Continue home meds - Monitor Code(s): I10 - ESSENTIAL (PRIMARY) HYPERTENSION (9) MARISSA (acute kidney injury) Current Visit: Yes Status: Resolved Assessment & Plan: - resolved Code(s): N17.9 - ACUTE KIDNEY FAILURE, UNSPECIFIED (10) Dehydration Current Visit: Yes Status: Acute Assessment & Plan: - anion gap 18.1 - refused IVF - encouraged oral rehydration Code(s): E86.0 - DEHYDRATION (11) Nicotine dependence Current Visit: Yes Status: Chronic Assessment & Plan: - advised cessation - nicotine patch Code(s): F17.200 - NICOTINE DEPENDENCE, UNSPECIFIED, UNCOMPLICATED (12) Fatty liver Current Visit: Yes Status: Chronic Assessment & Plan: - as seen on CT - 2:2 ETOH abuse Code(s): K76.0 - FATTY (CHANGE OF) LIVER, NOT ELSEWHERE CLASSIFIED (13) Seizure disorder Current Visit: Yes Status: Chronic Assessment & Plan: - continue keppra - seizure precautions - no witnessed seizures on admission Code(s): G40.909 - EPILEPSY, UNSP, NOT INTRACTABLE, WITHOUT STATUS EPILEPTICUS (14) Non-compliance Current Visit: Yes Status: Acute Assessment & Plan: - Pt states he is unsure when he last took any of his home meds. He admits to not taking them regularly. 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 Code(s): Z91.199 - PT NONCOMPL WITH OTHER MED TRTMT AND REGIMEN D/T UNSP REASON <SANDRA SANDERSON - Last Filed: 07/21/23 13:07> - Discharge Discharge Date: 07/20/23 <SANDRA SANDERSON - Last Filed: 07/21/23 13:07> <ERIN QUACH - Last Filed: 07/21/23 17:46> - Discharge Disposition: Against Medical Advice Condition: Fair Prescriptions: Continue Amlodipine Besylate 5 mg [Norvasc 5 mg] 5 mg PO BID Gemfibrozil [Lopid] 600 mg PO BID levETIRAcetam [Keppra] 750 mg PO BID Losartan Potassium [Cozaar] 100 mg PO DAILY Omeprazole 20 mg PO DAILY Clonidine HCl 0.1 mg [Clonidine 0.1 mg Tablet] 0.1 mg PO BID Albuterol Sulfate Mdi [ALBUTEROL/Proair Hfa MDI] 2 puff IH QID Nitroglycerin 0.4 mg Tablet [Nitrostat 0.4 MG Tablet] 0.4 mg SL Q5MIN PRN MR X 3 PRN PRN Reason: Chest Pain Gabapentin [Neurontin ] 100 mg PO TID Escitalopram Oxalate [Lexapro] 20 mg PO DAILY Furosemide 20 mg [Lasix 20 mg] 20 mg PO DAILY 30 Days #30 tablet Follow up with: AXEL CISNEROS [Primary Care Provider] -
== END 2023-07-20 19:25 | disposition left against medical advice (07) ==
LOC: ED 15:24 → MED SURG 20:00
PROVIDERS: ADMIT Internal Medicine Critical Care Medicine; ATTEND Internal Medicine Critical Care Medicine
DX: F10.129 Alcohol abuse with intoxication, unspecified (principal); F10.10 Alcohol abuse, uncomplicated; E87.20 Acidosis, unspecified; R79.81 Abnormal blood-gas level; J98.11 Atelectasis; E87.6 Hypokalemia; R41.82 Altered mental status, unspecified; I10 Essential (primary) hypertension; N17.9 Acute kidney failure, unspecified; E86.0 Dehydration; F10.20 Alcohol dependence, uncomplicated; F17.200 Nicotine dependence, unspecified, uncomplicated; E78.5 Hyperlipidemia, unspecified; K76.0 Fatty (change of) liver, not elsewhere classified; G40.909 Epilepsy, unspecified, not intractable, without status epilepticus; W19.XXXA Unspecified fall, initial encounter; I25.2 Old myocardial infarction; Z91.148 Patient's other noncompliance with medication regimen for other reason; Z79.899 Other long term (current) drug therapy; Z20.828 Contact with and (suspected) exposure to other viral communicable diseases; Z86.73 Personal history of transient ischemic attack (TIA), and cerebral infarction without residual deficits
CPT/HCPCS: 36000; 36415; 36600; 51702; 70450; 71250; 80048; 80053; 80143; 80179; 80307; 81001; 82077; 82375; 82550; 82803; 82947; 83605; 83735; 84145; 84484; 85025; 85027; 85610; 85730; 87086; 90791; 93005; 93041; 93268; 94640; 99285; 99291; G0378; Q3014; J3360; A9270-GY

== ENCOUNTER 2023-07-24 14:49 | Emergency (ER) | payer MEDICARE ==
[2023-07-24] MEDS ORDERED: Zofran 4 MG/2 ML VIAL ONE ×2 (15:04→15:16)
[2023-07-24] MEDS ORDERED: Propofol 1000 mg/100 ml Bottle 100 ML IV ONE ×2 (15:04→20:25)
[2023-07-24 15:11] LABS: Absolute Neutrophil Ct (ANC) 2.77 x10^3/uL (1.4-6.9); BASOPHIL % 0.9 % (0.0-0.4); Basophil (Absolute #) 0.06 x10^3/uL (0-0.4); Eosinophil % 0.8 % (0.00-5.0); Eosinophil (Absolute #) 0.05 x10^3/uL (0-0.5); Hematocrit 51.3 % (42-50); IMMATURE GRAN # 0.02 x10^3u/L (0.00-0.03); IMMATURE GRAN % 0.3 % (0.00-0.4); Lymphocyte (Absolute #) 3.12 x10^3/uL (1.0-4.6); Lymphocytes % 48.2 % (24.0-44.0); Mean Corpuscular Hemoglobin 33.8 pg (26-32); Mean Corpuscular Hgb Concent. 33.1 g/dL (32-36); Mean Platelet Volume 9.3 fL (7.5-11.0); Monocyte (Absolute #) 0.45 x10^3/uL (0.0-1.3); Neutrophil % 42.8 % (36.0-66.0); Platelet Count 112 x10^3/uL (150-450); Red Blood Count 5.03 x10^6/uL (4.1-5.6); Red Cell Distribution Width 15.6 % (11.5-14.0); White Blood Count 6.5 x10^3/uL (4.0-10.5)
[2023-07-24 15:15] LABS: VBG BASE EXCESS 1.8 (-2.0-2.0); VBG HCO3- 29.5 meq/L (22-28); VBG HEMOGLOBIN 17.5; VBG O2 SATURATION 65.2 (95-100); VBG POTASSIUM 3.5 (3.5-5.1)
[2023-07-24 15:16] LABS: VBG CARBOXYHEMOGLOBIN 7.4 % T HGB (0.0-6.9); VBG pH 7.33 (7.32-7.42)
[2023-07-24] MEDS ORDERED: Sodium Chloride 0.9% 1000 ML 1,000 ML ONE ×3 (15:16→16:58)
[2023-07-24] MEDS: Zofran 4 MG/2 ML VIAL IV ONE (15:17)
[2023-07-24] MEDS ORDERED: PROTONIX 40 MG IV IV ONE (15:18)
[2023-07-24] MEDS: Sodium Chloride 0.9% 1000 ML 1,000 ML IV STA ×3 (15:18→17:04)
[2023-07-24] MEDS: PROTONIX 40 MG IV IV ONE (15:19)
--- NOTE | 2023-07-24 15:21 | XRAY ---
Indication: Tube placement. Comparison: June 20, 2023 Portable chest demonstrates new endotracheal tube tip approximately 4 cm above [place]. Lungs better inflated with stable incidental left upper lobe calcified granuloma. Remaining heart and lungs unremarkable. Bony thorax intact again with osteopenia and degenerative changes.
[2023-07-24 15:26] LABS: INR 1.09 (0.8-3.0); PROTIME 11.8 SECONDS (9.4-12.5)
[2023-07-24 15:27] LABS: Potassium 3.4 mmol/L (3.5-5.1)
[2023-07-24 15:29] LABS: Appearance Clear (Clear); Bacteria None Seen /HPF (None Seen); Bilirubin Negative (Negative); Blood Negative (Negative); Epithelial Cells None Seen /HPF (None Seen); Glucose, Urine Negative (Negative); Ketones Negative (Negative); Leukocyte Esterase Trace (Negative); Nitrite Negative (Negative); Protein,Urine Dip Trace (Negative); RBC 0-2 /HPF (0-5); Urobilinogen 0.2 mg/dL (0.2)
[2023-07-24 15:30] LABS: ADD URINE CULTURE? ORDERED SEPARATELY (NO)
[2023-07-24 15:38] LABS: A-aADO2 213; ABG HEMOGLOBIN 17.2; ABG POTASSIUM 3.1 (3.5-5.1); ARTERIAL BLD GAS TIDAL VOLUME 500 cc; ARTERIAL BLOOD GAS BASE EXCESS -2.3 (-2.0-2.0); ARTERIAL BLOOD GAS FIO2 100 %; ARTERIAL BLOOD GAS PCO2 49 mmHg (35-45); ARTERIAL BLOOD GAS PO2 439 mmHg (75-100); ARTERIAL BLOOD GAS VENT MODE A/C; ARTERIAL BLOOD GAS pH 7.31 (7.35-7.45); CARBOXYHEMOGLOBIN 6.2 % THgb (0.0-6.9); HCO3- 24.7 (22-28); HGB O2 SAT 92.8 g/dF (94-100); Lactic Acid 3.5 (0.4-2.0); paO2 pAO1 0.67
[2023-07-24 15:38] LABS: ACETAMINOPHEN < 10 ug/ml (10-30); ALKALINE PHOSPHATASE 106 U/L (38-126); BLOOD UREA NITROGEN 6 mg/dL (9-20); CHLORIDE 104 mmol/L (98-107); Calcium 8.5 mg/dL (8.4-10.2); Carbon Dioxide 26 mmol/L (22-30); Creatinine 1 0.98 mg/dL (0.66-1.25); EST GLOMERULAR FILTRATION RATE 89.4 ML/MIN; Glucose 104 mg/dL (74-106); LIPASE 89 U/L (23-300); MAGNESIUM 1.7 mg/dL (1.6-2.3); SALICYLATE < 1.0 mg/dL (2-20); SGOT/AST 42 U/L (17-59); SGPT/ALT 24 U/L (0-50); SODIUM 143 mmol/L (137-145); TROPONIN < 0.012 ng/mL (0.000-0.034); Total Protein 6.8 g/dL (6.3-8.2)
[2023-07-24 15:39] LABS: ABG SITE LEFT RADIAL; ARTERIAL BLOOD GAS VENT RATE 14 /MIN
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
[2023-07-24 15:40] LABS: Amphetamine,Urine NEGATIVE (NEGATIVE); Barbiturate,Urine NEGATIVE (NEGATIVE); Benzodiazepine,Urine POSITIVE (NEGATIVE); Cocaine,Urine NEGATIVE (NEGATIVE); Methadone,Urine NEGATIVE (NEGATIVE); Opiate,Urine NEGATIVE (NEGATIVE); PCP,Urine NEGATIVE (NEGATIVE); THC,Urine NEGATIVE (NEGATIVE)
[2023-07-24 15:44] LABS: ANION GAP 16.4 MEQ/L (5-15); ETHYL ALCOHOL 456 mg/dL (0-10)
[2023-07-24 16:02] LABS: INFLUENZA A NEGATIVE (NEGATIVE); INFLUENZA B NEGATIVE (NEGATIVE); RESPIRATORY SYNCTIAL VIRUS NEGATIVE (NEGATIVE); SARS-CoV-2 Xpert Express NEGATIVE (NEGATIVE)
--- NOTE | 2023-07-24 16:23 | XRAY ---
Indication: Unresponsive. Multiple contiguous axial images obtained through the head without contrast. Again age-appropriate global atrophy, moderate periventricular degenerative micro-ischemia bilaterally, remote bifrontal lobe infarcts, and remote lacunar infarct left basal ganglia. No acute intracranial hemorrhage, abnormal extra-axial fluid collection, or mass effect. Fourth ventricle is midline without hydrocephalus. Bony calvarium intact. Again small fluid leveling left maxillary sinus. Mastoid air cells are clear. Impression: No change compared to ER CT head exams June 20, 2023 and July 19, 2023. Continued nonacute senile brain with again multifocal old infarcts further detailed on recent MRI brain June 21, 2023.
[2023-07-24] MEDS: THIAMINE 200 MG/2 ML*** 100 MG, Vitamins For Infusion 10 ML INJECTION*** 10 ML, FOLNATE... IV SCH (17:40)
[2023-07-24] MEDS ORDERED: SUBLIMAZE 100 MCG/2 ML ONE (17:44)
[2023-07-24] MEDS: SUBLIMAZE 100 MCG/2 ML IV ONE (17:56)
[2023-07-24] MEDS ORDERED: PIPERACILLIN/TAZOBACTAM IV ONE (18:10)
[2023-07-24] MEDS ORDERED: Sodium Chloride 100ML MINI-BAG PLUS 100 ML IV ONE (18:11)
[2023-07-24] MEDS: PIPERACILLIN/TAZOBACTAM 3.375 GM in Sodium Chloride 100ML MINI-BAG PLUS 100 ML IV ONE (18:30)
[2023-07-24] MEDS ORDERED: NOREPINEPHRINE 8 MG/250 ML-D5W 8 MG/250 ML PLAST..BAG IV ONE (18:35)
[2023-07-24] MEDS: NOREPINEPHRINE 8 MG/250 ML-D5W 8 MG/250 ML PLAST..BAG IV PRN (18:44)
[2023-07-24] MEDS ORDERED: ATROPINE SULFATE 1MG IV ONE (18:49)
[2023-07-24] MEDS ORDERED: Dopamine 400 MG/D5W 250ML PREMIX 250 ML IV ONE (18:49)
[2023-07-24] MEDS: Dopamine 400 MG/D5W 250ML PREMIX 250 ML IV PRN (18:56)
[2023-07-24] MEDS ORDERED: ATROPINE SULFATE 1MG SYR ABBOJECT ONE (19:02)
[2023-07-24 20:28] VITALS: BP 107/63; PULSE 84; RESP 4; TEMP 98.6
[2023-07-26 20:13] VITALS: O2SAT 99
== END 2023-07-24 20:28 | disposition short-term general hospital (02) ==
LOC: ED 14:49
DX: F10.129 Alcohol abuse with intoxication, unspecified (principal); Y90.8 Blood alcohol level of 240 mg/100 ml or more; R40.4 Transient alteration of awareness; G93.40 Encephalopathy, unspecified; J96.90 Respiratory failure, unspecified, unspecified whether with hypoxia or hypercapnia; I10 Essential (primary) hypertension; Z79.899 Other long term (current) drug therapy
CPT/HCPCS: 0241U; 31500; 36000; 36415; 36600; 51702; 70450; 71045; 80053; 80143; 80179; 80307; 81001; 82077; 82375; 82803; 82805; 83605; 83690; 83735; 84484; 85025; 85610; 87040; 87086; 93005; 94002; 94760; 96360; 96361; 96365; 96367; 96374; 96375; 99285; 99291; 87077; 87186; J0461; J1265; J2405; J2704; J3010

== ENCOUNTER 2023-08-02 14:51 | Emergency (ER) | payer MEDICARE ==
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
[2023-08-02 15:06] VITALS: PULSE 69; TEMP 97.7
[2023-08-02 15:29] VITALS: O2SAT 93
[2023-08-02 15:29] LABS: BASOPHIL % 0.8 % (0.0-0.4); Basophil (Absolute #) 0.04 x10^3/uL (0-0.4); Eosinophil % 1.6 % (0.00-5.0); Eosinophil (Absolute #) 0.08 x10^3/uL (0-0.5); Hematocrit 50.3 % (42-50); Hemoglobin 16.3 g/dL (12.5-18.0); IMMATURE GRAN # 0.03 x10^3u/L (0.00-0.03); IMMATURE GRAN % 0.6 % (0.00-0.4); Lymphocyte (Absolute #) 1.56 x10^3/uL (1.0-4.6); Lymphocytes % 31.8 % (24.0-44.0); Mean Cell Volume 105.9 fL (78-100); Mean Corpuscular Hemoglobin 34.3 pg (26-32); Mean Corpuscular Hgb Concent. 32.4 g/dL (32-36); Mean Platelet Volume 9.4 fL (7.5-11.0); Monocyte (Absolute #) 0.49 x10^3/uL (0.0-1.3); Neutrophil % 55.2 % (36.0-66.0); Platelet Count 220 x10^3/uL (150-450); Red Blood Count 4.75 x10^6/uL (4.1-5.6); Red Cell Distribution Width 15.6 % (11.5-14.0); White Blood Count 4.9 x10^3/uL (4.0-10.5)
[2023-08-02 15:42] VITALS: BP 133/73; RESP 20
[2023-08-02 15:48] LABS: ACETAMINOPHEN < 10 ug/ml (10-30); ALBUMIN 3.8 g/dL (3.5-5.0); ALKALINE PHOSPHATASE 87 U/L (38-126); ANION GAP 16.2 MEQ/L (5-15); BLOOD UREA NITROGEN 7 mg/dL (9-20); CHLORIDE 110 mmol/L (98-107); Calcium 9.4 mg/dL (8.4-10.2); Carbon Dioxide 24 mmol/L (22-30); Creatinine 1 0.83 mg/dL (0.66-1.25); EST GLOMERULAR FILTRATION RATE 101.5 ML/MIN; ETHYL ALCOHOL 190 mg/dL (0-10); Glucose 82 mg/dL (74-106); Potassium 4.1 mmol/L (3.5-5.1); SALICYLATE < 1.0 mg/dL (2-20); SGOT/AST 44 U/L (17-59); SGPT/ALT 25 U/L (0-50); SODIUM 146 mmol/L (137-145); Total Protein 6.6 g/dL (6.3-8.2)
[2023-08-02 16:29] LABS: Appearance Clear (Clear); Bacteria None Seen /HPF (None Seen); Bilirubin Negative (Negative); Blood Negative (Negative); Epithelial Cells None Seen /HPF (None Seen); Glucose, Urine Negative (Negative); Hyaline Casts NONE SEEN /LPF (0-2); Ketones Negative (Negative); Leukocyte Esterase Negative (Negative); Nitrite Negative (Negative); Protein,Urine Dip Negative (Negative); RBC 0-2 /HPF (0-5); Specific Gravity <=1.005 (1.005-1.030); Urobilinogen 0.2 mg/dL (0.2); WBC 0-2 /HPF (0-5)
[2023-08-02 16:30] LABS: ADD URINE CULTURE? NO (NO)
--- NOTE | 2023-08-02 16:33 | XRAY ---
Indication: Status post fall. Alcohol intoxication. Multiple contiguous axial images obtained through the head without contrast. Comparison: July 24, 2023 Grossly stable age-appropriate global atrophy, moderate periventricular degenerative micro-ischemia bilaterally, remote bifrontal lobe infarcts, and tiny remote infarct left mid jimenez radiata. No acute intracranial hemorrhage, abnormal extra-axial fluid collection, or mass effect. Fourth ventricle is midline. Bony calvarium intact. Visualized paranasal sinuses and mastoid air cells are clear. Impression: No change compared to ER CT head exams June 20, 2023, July 19, 2023, and July 24, 2023. Continued nonacute senile brain with again multifocal old infarcts further detailed on recent MRI brain June 21, 2023.
--- NOTE | 2023-08-02 16:35 | XRAY ---
Indication: Status post fall. Alcohol intoxication. Multiple contiguous axial images obtained through the facial bones. Sagittal and coronal reformatted images obtained. Comparison: None Patient is nearly edentulous. No acute fracture, radiopaque foreign body, or suspicious bony lesions. Orbits including roof, good, and floors are intact. Inferior left maxillary sinus demonstrates minimal mucosal thickening. Remaining paranasal sinuses and nasal passages are clear. Visualized noncontrasted soft tissues are unremarkable. CT head and CT cervical spine reported separately. Impression: Minimal left maxillary sinus disease. Remaining CT facial bones negative.
--- NOTE | 2023-08-02 16:39 | XRAY ---
Indication: Status post fall. Alcohol intoxication. Multiple contiguous axial images obtained through the cervical spine. Sagittal and coronal reformatted images obtained. Comparison: November 28, 2022 Axial images again negative for acute fracture, suspicious bony lesions, or spinal canal stenosis. Stable moderate C3-C7 degenerative endplate spurring and mild/moderate multilevel bilateral degenerative facet hypertrophy. Sagittal and coronal reformatted images again demonstrates lordotic straightening, positional versus paraspinal spasm. Stable 3-4 mm degenerative anterolisthesis C4 on C5. Stable C3-C7 degenerative disc space loss. No acute compression fracture or jumped facet. Normal appearing cranial cervical junction. Visualized noncontrasted soft tissues again demonstrates mild bilateral carotid calcifications. Impression: 1. Continued negative for acute fracture/subluxation. 2. Stable lordotic straightening, multilevel degenerative spondylosis, minimal grade 1 L4 listhesis, and bilateral carotid calcifications
[2023-08-02 16:46] LABS: Amphetamine,Urine NEGATIVE (NEGATIVE); Barbiturate,Urine NEGATIVE (NEGATIVE); Benzodiazepine,Urine POSITIVE (NEGATIVE); Cocaine,Urine NEGATIVE (NEGATIVE); Methadone,Urine NEGATIVE (NEGATIVE); Opiate,Urine NEGATIVE (NEGATIVE); PCP,Urine NEGATIVE (NEGATIVE); THC,Urine NEGATIVE (NEGATIVE)
== END 2023-08-02 16:35 | disposition left against medical advice (07) ==
LOC: ED 14:51
DX: F10.129 Alcohol abuse with intoxication, unspecified (principal); Y90.6 Blood alcohol level of 120-199 mg/100 ml; R29.6 Repeated falls; E78.5 Hyperlipidemia, unspecified; I10 Essential (primary) hypertension; Z79.899 Other long term (current) drug therapy
CPT/HCPCS: 36000; 36415; 70450; 70486; 72125; 80053; 80143; 80179; 80307; 81001; 82077; 82947; 85025; 93005; 93041; 94760; 99284

== ENCOUNTER 2024-01-29 06:02 | Observation (INO) | payer MEDICARE ==
[2024-01-29] MEDS ORDERED: Sodium Chloride 0.9% 1000 ML 1,000 ML ONE ×2 (06:58→07:42)
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
[2024-01-29] MEDS: Sodium Chloride 0.9% 1000 ML 1,000 ML IV STA ×2 (06:59→09:00)
--- NOTE | 2024-01-29 07:23 | XRAY ---
CLINICAL HISTORY: confusion COMPARISON: 03/10/2023 TECHNIQUE: Multiple unenhanced axial sections were acquired from base of skull till vertex without intra venous contrast administration. Coronal and sagittal images acquired. One of the following dose reduction techniques were utilized for this exam: Automated exposure control, adjustment of the mA and/or kV according to patient size, and use of iterative reconstruction." FINDINGS: Redemonstration of encephalomalacic changes noted in the bilateral frontal lobe more on the right side suggesting Old ischemic insult. Redemonstration of lacunar infarct in left basal ganglia. No definite evidence of acute cerebral infarction Redemonstration of mild senile changes and microvascular ischemic changes. No cerebral infarct seen. No evidence of subdural, epidural or subarachnoid collection. No intra parenchymal or intra ventricular hemorrhage seen. No hydrocephalus or midline shift identified. Posterior fossa grossly appear unremarkable. Visualized para nasal sinuses, mastoid air cells and orbits show no gross abnormality. On bone window settings, no fracture seen in skull vault. IMPRESSION: 1. No definite evidence of acute cerebral infarction. Early changes of acute ischemia are sometimes not visible on CT if there is a strong clinical suspicion MRI with DWI/ADC maps is suggested for further evaluation. 2. Redemonstration of bilateral frontal lobe Encephalomalacic changes, microvascular ischemic changes, And lacunar infarcts. 3. No interval change noted in comparison to the previous [facility] ER was called at [phone] at 6:15 AM FINANCIAL ACCOUNTANT, 01/29/2024 and Trace Barker was informed about negative stroke findings. Electronically Signed by: Contreras Holt MD. (01/29/2024 07:18:18 EDT)
[2024-01-29 07:36] LABS: Absolute Neutrophil Ct (ANC) 4.43 x10^3/uL (1.78-5.38); BASOPHIL % 0.4 % (0.2-1.2); Basophil (Absolute #) 0.03 x10^3/uL (0.01-0.08); Eosinophil % 1.4 % (0.8-7.0); Eosinophil (Absolute #) 0.11 x10^3/uL (0.04-0.54); Hematocrit 26.9 % (40.1-51.0); Hemoglobin 9.2 g/dL (13.7-17.5); IMMATURE GRAN # 0.03 x10^3u/L (0.001-0.031); IMMATURE GRAN % 0.4 % (0.001-0.429); Lymphocyte (Absolute #) 2.55 x10^3/uL (1.32-3.57); Lymphocytes % 32.8 % (21.8-53.1); Mean Cell Volume 91.8 fL (79.0-92.2); Mean Corpuscular Hemoglobin 31.4 pg (25.7-32.2); Mean Corpuscular Hgb Concent. 34.2 g/dL (32.3-36.5); Mean Platelet Volume 9.6 fL (9.4-12.4); Monocyte (Absolute #) 0.63 x10^3/uL (0.30-0.82); Monocytes % 8.1 % (5.3-12.2); Neutrophil % 56.9 % (34.0-67.9); Platelet Count 262 x10^3/uL (163-337); Red Blood Count 2.93 x10^6/uL (4.63-6.08); Red Cell Distribution Width 12.3 % (11.6-14.4); White Blood Count 7.8 x10^3/uL (4.23-9.07)
[2024-01-29 07:52] LABS: ALBUMIN 3.7 g/dL (3.5-5.0); ALKALINE PHOSPHATASE 75 U/L (38-126); ANION GAP 13.4 MEQ/L (5-15); BLOOD UREA NITROGEN 29 mg/dL (9-20); CHLORIDE 107 mmol/L (98-107); Calcium 8.8 mg/dL (8.4-10.2); Carbon Dioxide 21 mmol/L (22-30); Creatinine 1 1.92 mg/dL (0.66-1.25); EST GLOMERULAR FILTRATION RATE 39.9 ML/MIN; ETHYL ALCOHOL < 10 mg/dL (0-10); Glucose 104 mg/dL (74-106); SGOT/AST 17 U/L (17-59); SGPT/ALT 13 U/L (0-50); SODIUM 139 mmol/L (135-145); Total Protein 6.4 g/dL (6.3-8.2)
[2024-01-29] MEDS: Sodium Chloride 0.9% 1000 ML 1,000 ML IV SCH (07:53)
[2024-01-29 07:57] LABS: Potassium 2.7 mmol/L (3.5-5.1)
[2024-01-29 08:01] LABS: NT PRO BNPII 1040 pg/mL (<300)
[2024-01-29] MEDS ORDERED: Klor Con ONE ×2 (08:01→18:25)
[2024-01-29] MEDS: Klor Con PO ONE ×2 (08:01→18:26)
[2024-01-29 08:04] LABS: TROPONIN < 0.012 ng/mL (0.000-0.033)
[2024-01-29 08:09] LABS: ABO TYPING A; Antibody Screen NEGATIVE (NEGATIVE); RH TYPING POSITIVE
[2024-01-29 08:20] LABS: INFLUENZA A NEGATIVE (NEGATIVE); INFLUENZA B NEGATIVE (NEGATIVE); RESPIRATORY SYNCTIAL VIRUS NEGATIVE (NEGATIVE); SARS-CoV-2 Xpert Express NEGATIVE (NEGATIVE)
--- NOTE | 2024-01-29 09:10 | XRAY ---
Indication: Syncope. Comparison: July 24, 2023 Portable chest better inflated and remains clear again with incidental left upper lobe calcified granuloma. Heart not enlarged. Bony thorax intact again with osteopenia and degenerative changes. Impression: Nonacute chest with chronic features.
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
[2024-01-29 10:47] LABS: Appearance Clear (Clear); Bacteria None Seen /HPF (None Seen); Bilirubin Negative (Negative); Blood Negative (Negative); Epithelial Cells None Seen /HPF (None Seen); Glucose, Urine Negative (Negative); Hyaline Casts NONE SEEN /LPF (0-2); Ketones Negative (Negative); Leukocyte Esterase Negative (Negative); Nitrite Negative (Negative); Protein,Urine Dip Negative (Negative); RBC 0-2 /HPF (0-5); Specific Gravity <=1.005 (1.005-1.030); Urobilinogen 0.2 mg/dL (0.2); WBC 0-2 /HPF (0-5)
[2024-01-29 10:50] LABS: ADD URINE CULTURE? NO (NO)
[2024-01-29] MEDS: PROAMATINE PO ONE (10:51)
[2024-01-29] MEDS: Lactated Ringers 1,000 ML IV SCH (10:53)
[2024-01-29] MEDS: POTASSIUM CHLORIDE 20 mEq IN WATER 100ML 100 ML IV SCH (10:53)
[2024-01-29 11:07] LABS: Amphetamine,Urine NEGATIVE (NEGATIVE); Barbiturate,Urine NEGATIVE (NEGATIVE); Benzodiazepine,Urine NEGATIVE (NEGATIVE); Cocaine,Urine NEGATIVE (NEGATIVE); Methadone,Urine NEGATIVE (NEGATIVE); Opiate,Urine NEGATIVE (NEGATIVE); PCP,Urine NEGATIVE (NEGATIVE); THC,Urine NEGATIVE (NEGATIVE)
[2024-01-29] MEDS ORDERED: TYLENOL 325 MG PO PRN (12:43)
[2024-01-29] MEDS ORDERED: VENTOLIN COMMON CANISTER IH PRN (15:14)
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
[2024-01-29] MEDS ORDERED: VENTOLIN COMMON CANISTER IH SCH (19:00)
[2024-01-29 20:06] VITALS: BP 99/58; PULSE 58; RESP 18; TEMP 97.6; O2SAT 100
[2024-01-29] MEDS ORDERED: ELIQUIS 2.5 MG TABLET PO SCH (22:00)
[2024-01-29] MEDS ORDERED: NON-FORMULARY ITEM (Apixaban [Eliquis] 5 MG Tablet) PO SCH (22:00)
[2024-01-29] MEDS ORDERED: LOPID PO SCH (22:00)
[2024-01-29] MEDS ORDERED: LEVETIRACETAM 750 MG PO SCH (22:00)
[2024-01-29] MEDS ORDERED: KEPPRA PO SCH (22:00)
[2024-01-29] MEDS ORDERED: HEPARIN 5000 UNITS/0.5 ML (HIGH RISK MED) SQ SCH (22:00)
[2024-01-30] MEDS ORDERED: ECOTRIN 81 MG PO SCH (10:00)
[2024-01-30] MEDS ORDERED: FOLATE 1 MG PO SCH (10:00)
[2024-01-30] MEDS ORDERED: Lexapro PO SCH (10:00)
[2024-01-30] MEDS ORDERED: NON-FORMULARY ITEM (Escitalopram Oxalate [Lexapro] 20 MG Tablet) PO SCH (10:00)
--- NOTE | 2024-01-30 16:05 | PCM.DS ---
Discharge Summary Date of Admission: 01/29/24 09:23 Date of Discharge: 01/30/24 Admitting Physician: MADHAV LAROSE MD Consults: Consults on Case 01/29/24 06:56 ACO SDOH Referral ONCE 01/29/24 10:43 Case Management SDOH DC Needs Assessment ROUTINE 01/29/24 10:51 Cardiology Consult [Notify Internet Consultant of Admit] ROUTINE Primary Care Provider: NO FAMILY DOCTOR Allergies Allergies No Known Drug Allergies Allergy (Verified 01/29/24 08:36) Hospital Summary - Hospital Course Hospital Course: 01/29/24 Mr.MERKLEY LAWSON is a 58 year old male with past medical history of migraine, seizures, hypertension, [place]. Presents to our ED via EMS from home for evaluation of syncope. Patient states he was walking to the restroom and fell. Patient states that he has been experiencing blurred vision and generalized weakness. Per report patient was recently released from detention yesterday. Patient reports he has lost between 60 and 100 pounds during his stay in detention. he had been taking all of his meds until released. Patient states he has not been eating well. Patient denies pain. No chest pain or shortness of breath. No nausea vomiting or diarrhea. Cervical spine cleared clinically in ER. K+ 2.7 and replaced per electrolyte protocol. Will recheck 2 hours post infusions. When admitted to the floor pt hypotensive and bradycardic. He received a total of 3 L fluid boluses and IVF continued. Midodrine started. Pt has acute kidney injury and IVF should help. Pt is a poor historian and unable to tell me any meds he takes. Nurse to obtain med list from detention. He c/o BLLE weakness. Pt signed out AMA on 01/28 at 1930. - Vitals & Intake/Output Vital Signs: Vital Signs Temperature 97.6 F 01/29/24 20:00 Pulse Rate 58 L 01/29/24 20:00 Respiratory Rate 18 01/29/24 20:00 Blood Pressure 99/58 01/29/24 20:00 O2 Sat by Pulse Oximetry 100 01/29/24 20:00 Intake & Output: Intake & Output 01/28/24 01/29/24 01/30/24 01/31/24 11:59 11:59 11:59 11:59 Intake Total 600 Output Total 775 Balance -775 600 Weight 77.5 kg - Lab Result Diagrams: 01/29/24 07:23 01/29/24 17:52 Lab Results-Last 24 Hrs: Lab Results-Last 24 Hours 01/29/24 Range/Units 17:52 Potassium 3.4 L D (3.5-5.1) mmol/L - Radiology Exams Ordered Rad Exams-Entire Visit: Radiology Procedures Category Date Time Status CHEST 1 VIEW (PORTABLE) Stat Exams 01/29/24 07:30 Completed ECHO W/2D AND DOPPLER [US] Routine Exams 01/29/24 10:18 Taken HEAD WITHOUT CONTRAST [CT] Stat Exams 01/29/24 06:37 Completed - Procedures and Test Procedures and Tests throughout Hospitalization: Therapy Orders & Screens 01/29/24 10:43 Smoking Cessation Education ONCE Comment: Diagnosis: SYNCOPE Smoking Status: Current every day smoker How long have you smoked: "40 years" Have you smoked in the past 12 months: Yes Approximately how many cigarettes per day: 10 Do you dip or chew tobacco: No 01/29/24 12:43 RT Miscellaneous Order ROUTINE Comment: Physician Instructions: Reason For Exam: CPAP at [facility] Diagnosis: SYNCOPE 01/29/24 12:44 PT Eval & Treat (MD Order) ONCE Reason for Eval:: weakness BLLE Diagnosis: SYNCOPE 01/29/24 13:40 BiPap/CPAP ROUTINE Comment: Diagnosis: syncope 01/30/24 07:00 Respiratory Therapy Assessment DAILY Comment: Diagnosis: syncope Final Diagnosis/Problem List - Final Discharge Diagnosis/Problem (1) Hypotension Status: Acute Code(s): I95.9 - HYPOTENSION, UNSPECIFIED (2) Bradycardia Status: Acute Code(s): R00.1 - BRADYCARDIA, UNSPECIFIED (3) Acute kidney injury Status: Acute Code(s): N17.9 - ACUTE KIDNEY FAILURE, UNSPECIFIED (4) Hypokalemia Status: Acute Code(s): E87.6 - HYPOKALEMIA (5) Syncope Status: Acute Assessment & Plan: Pt signed out AMA 1) Hypotension Current Visit: Yes Status: Acute Assessment & Plan: - fluid bolus x3 in ER - Echo - Cardiology consult - IVF - Midodrine Code(s): I95.9 - HYPOTENSION, UNSPECIFIED (2) Bradycardia Current Visit: Yes Status: Acute Assessment & Plan: - Echo - Cardiology consult - Tele - EKG Code(s): R00.1 - BRADYCARDIA, UNSPECIFIED (3) Acute kidney injury Current Visit: No Status: Acute Assessment & Plan: - Creat 1.92, baseline 0.83 - IVF Code(s): N17.9 - ACUTE KIDNEY FAILURE, UNSPECIFIED (4) Hypokalemia Current Visit: No Status: Acute Assessment & Plan: - K+2.7- replaced- trend - Tele Code(s): E87.6 - HYPOKALEMIA (5) Syncope Current Visit: Yes Status: Acute Assessment & Plan: - PT eval - Likely 2:2 hypokalemia, bradycardia, Hypotension - orthostats in AM Code(s): R55 - SYNCOPE AND COLLAPSE - Discharge Discharge Date: 01/30/24 Disposition: Against Medical Advice Condition: Stable Prescriptions: Continue Furosemide [Lasix] 20 mg PO DAILY Losartan Potassium [Cozaar] 100 mg PO DAILY Folic Acid 1 mg [Folate 1 mg] 1 mg PO DAILY hydroCHLOROthiazide [Hydrochlorothiazide] 50 mg PO DAILY Amlodipine Besylate 5 mg [Norvasc 5 mg] 5 mg PO DAILY Gemfibrozil [Lopid] 600 mg PO BID Escitalopram Oxalate [Lexapro] 20 mg PO DAILY Aspirin EC 81 mg [Ecotrin 81 mg] 81 mg PO DAILY Apixaban [Eliquis] 5 mg PO BID Albuterol Sulfate [Albuterol Sulfate Hfa] 1 puff IH Q4HPRN PRN PRN Reason: Shortness Of Breath Nitroglycerin 0.4 mg Tablet [Nitrostat 0.4 MG Tablet] 0.4 mg SL Q5MIN PRN MR X 3 PRN PRN Reason: Chest Pain levETIRAcetam [Levetiracetam ER] 750 mg PO BID Clonidine HCl 0.1 mg [Clonidine 0.1 mg Tablet] 0.1 mg PO BID Follow up with: DOCTOR,NO FAMILY [Primary Care Provider] -
== END 2024-01-29 19:35 | disposition left against medical advice (07) ==
LOC: ED 06:02 → MED SURG 09:23
PROVIDERS: ADMIT Internal Medicine; ATTEND Internal Medicine
DX: I95.9 Hypotension, unspecified (principal); R55 Syncope and collapse; W19.XXXA Unspecified fall, initial encounter; Z59.82 Transportation insecurity; Z59.811 Housing instability, housed, with risk of homelessness; I10 Essential (primary) hypertension; I25.2 Old myocardial infarction; N17.9 Acute kidney failure, unspecified; E87.6 Hypokalemia; R00.1 Bradycardia, unspecified; E86.1 Hypovolemia
CPT/HCPCS: 0241U; 36000; 36415; 70450; 71045; 80053; 80307; 81001; 82077; 83605; 83735; 83880; 84132; 84484; 85025; 86850; 86900; 86901; 87040; 93005; 93041; 93268; 93306; 94760; 99285; J3480; Q3014; A9270-GY; G0378

== ENCOUNTER 2024-04-02 17:41 | Emergency (ER) | payer MEDICARE ==
[2024-04-02 17:50] VITALS: TEMP 97.2
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
[2024-04-02] MEDS ORDERED: Zofran 4 MG/2 ML VIAL ONE (18:20)
[2024-04-02] MEDS ORDERED: PROTONIX 40 MG IV IV ONE (18:20)
[2024-04-02] MEDS ORDERED: THIAMINE 200 MG/2 ML ONE (18:20)
[2024-04-02] MEDS: PROTONIX 40 MG IV IV ONE (18:25)
[2024-04-02] MEDS: THERAGRAN MULTIVITAMIN PO ONE (18:26)
[2024-04-02] MEDS: THIAMINE 200 MG/2 ML IV ONE (18:26)
[2024-04-02] MEDS: FOLATE 1 MG PO ONE (18:26)
[2024-04-02] MEDS: Zofran 4 MG/2 ML VIAL IV ONE (18:26)
[2024-04-02 19:00] LABS: Absolute Neutrophil Ct (ANC) 4.59 x10^3/uL (1.78-5.38); BASOPHIL % 0.4 % (0.2-1.2); Basophil (Absolute #) 0.03 x10^3/uL (0.01-0.08); Eosinophil % 0.8 % (0.8-7.0); Eosinophil (Absolute #) 0.06 x10^3/uL (0.04-0.54); Hematocrit 43.4 % (40.1-51.0); Hemoglobin 14.1 g/dL (13.7-17.5); IMMATURE GRAN # 0.01 x10^3u/L (0.001-0.031); IMMATURE GRAN % 0.1 % (0.001-0.429); Lymphocyte (Absolute #) 2.67 x10^3/uL (1.32-3.57); Lymphocytes % 34.2 % (21.8-53.1); Mean Cell Volume 96.4 fL (79.0-92.2); Mean Corpuscular Hemoglobin 31.3 pg (25.7-32.2); Mean Corpuscular Hgb Concent. 32.5 g/dL (32.3-36.5); Mean Platelet Volume 9.2 fL (9.4-12.4); Monocyte (Absolute #) 0.45 x10^3/uL (0.30-0.82); Monocytes % 5.8 % (5.3-12.2); Neutrophil % 58.7 % (34.0-67.9); Platelet Count 293 x10^3/uL (163-337); Red Cell Distribution Width 14.2 % (11.6-14.4); White Blood Count 7.8 x10^3/uL (4.23-9.07)
[2024-04-02 19:13] LABS: ACETAMINOPHEN < 10 ug/ml (10-30); ALBUMIN 4.4 g/dL (3.5-5.0); ALKALINE PHOSPHATASE 102 U/L (38-126); ANION GAP 20.7 MEQ/L (5-15); BLOOD UREA NITROGEN 23 mg/dL (9-20); CHLORIDE 107 mmol/L (98-107); Calcium 8.9 mg/dL (8.4-10.2); Carbon Dioxide 21 mmol/L (22-30); Creatinine 1 1.15 mg/dL (0.66-1.25); EST GLOMERULAR FILTRATION RATE 73.8 ML/MIN; ETHYL ALCOHOL 288 mg/dL (0-10); Glucose 98 mg/dL (74-106); Potassium 3.2 mmol/L (3.5-5.1); SALICYLATE < 1.0 mg/dL (2-20); SGOT/AST 24 U/L (17-59); SGPT/ALT 12 U/L (0-50); SODIUM 145 mmol/L (135-145); Total Protein 7.5 g/dL (6.3-8.2)
[2024-04-02 19:21] VITALS: RESP 16
[2024-04-02] MEDS ORDERED: Klor Con ONE (19:43)
[2024-04-02] MEDS: Klor Con PO ONE (19:46)
[2024-04-02 20:32] VITALS: BP 91/58; PULSE 82; O2SAT 96
--- NOTE | 2024-04-03 08:38 | XRAY ---
Indication: Altered mental status. Alcohol consumption. Multiple contiguous axial images obtained through the head without contrast. Comparison: January 29, 2024 Again age-appropriate global atrophy, moderate periventricular degenerative micro-ischemia bilaterally, remote bifrontal lobe infarcts, and tiny remote infarct left mid jimenez radiata. No acute intracranial hemorrhage, abnormal extra-axial fluid collection, or mass effect. Fourth ventricle is midline without hydrocephalus. Bony calvarium intact. Visualized paranasal sinuses and mastoid air cells are clear. Impression: Continued nonacute senile brain again with multifocal old infarcts.
== END 2024-04-02 20:40 | disposition left against medical advice (07) ==
LOC: ED 17:41
DX: F10.129 Alcohol abuse with intoxication, unspecified (principal); Y90.8 Blood alcohol level of 240 mg/100 ml or more; E87.6 Hypokalemia; I10 Essential (primary) hypertension; E78.5 Hyperlipidemia, unspecified; Z79.01 Long term (current) use of anticoagulants; Z79.899 Other long term (current) drug therapy; Z59.819 Housing instability, housed unspecified; Z59.82 Transportation insecurity
CPT/HCPCS: 36000; 36415; 70450; 80053; 80143; 80179; 82077; 83735; 85025; 96374; 96375; 99284; J2405; A9270-GY

== ENCOUNTER 2024-06-23 12:38 | Emergency (ER) | payer MEDICARE ==
[2024-06-23 12:51] VITALS: TEMP 97.2
[2024-06-23] MEDS ORDERED: Sodium Chloride 0.9% 1000 ML 1,000 ML ONE ×2 (12:51→14:06)
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
[2024-06-23 12:59] LABS: VBG BASE EXCESS 4.2 (-2.0-2.0); VBG HCO3- 29.8 meq/L (22-28); VBG HEMOGLOBIN 14.5; VBG O2 SATURATION 81.9 (95-100); VBG POTASSIUM 3.1 (3.5-5.1); VBG pH 7.41 (7.32-7.42)
[2024-06-23 13:00] LABS: VBG CARBOXYHEMOGLOBIN 13.1 % T HGB (0.0-6.9)
[2024-06-23 13:04] LABS: Absolute Neutrophil Ct (ANC) 6.53 x10^3/uL (1.78-5.38); BASOPHIL % 0.5 % (0.2-1.2); Basophil (Absolute #) 0.05 x10^3/uL (0.01-0.08); Eosinophil % 1.1 % (0.8-7.0); Hematocrit 42.8 % (40.1-51.0); Hemoglobin 14.1 g/dL (13.7-17.5); IMMATURE GRAN # 0.02 x10^3u/L (0.001-0.031); IMMATURE GRAN % 0.2 % (0.001-0.429); Lymphocyte (Absolute #) 1.91 x10^3/uL (1.32-3.57); Lymphocytes % 20.3 % (21.8-53.1); Mean Cell Volume 95.1 fL (79.0-92.2); Mean Corpuscular Hemoglobin 31.3 pg (25.7-32.2); Mean Corpuscular Hgb Concent. 32.9 g/dL (32.3-36.5); Mean Platelet Volume 9.7 fL (9.4-12.4); Monocyte (Absolute #) 0.78 x10^3/uL (0.30-0.82); Monocytes % 8.3 % (5.3-12.2); Neutrophil % 69.6 % (34.0-67.9); Platelet Count 276 x10^3/uL (163-337); Red Cell Distribution Width 13.8 % (11.6-14.4); White Blood Count 9.4 x10^3/uL (4.23-9.07)
[2024-06-23] MEDS ORDERED: Zofran 4 MG/2 ML VIAL ONE (13:10)
[2024-06-23] MEDS: Zofran 4 MG/2 ML VIAL IV ONE (13:12)
[2024-06-23] MEDS: Sodium Chloride 0.9% 1000 ML 1,000 ML IV STA ×2 (13:13→14:28)
[2024-06-23 13:33] LABS: ACETAMINOPHEN < 10 ug/ml (10-30); ALBUMIN 4.5 g/dL (3.5-5.0); ALKALINE PHOSPHATASE 73 U/L (38-126); ANION GAP 14.6 MEQ/L (5-15); BLOOD UREA NITROGEN 17 mg/dL (9-20); CHLORIDE 98 mmol/L (98-107); Calcium 9.6 mg/dL (8.4-10.2); Carbon Dioxide 27 mmol/L (22-30); Creatinine 1 1.69 mg/dL (0.66-1.25); EST GLOMERULAR FILTRATION RATE 46.2 ML/MIN; ETHYL ALCOHOL < 10 mg/dL (0-10); Glucose 112 mg/dL (74-106); Potassium 3.1 mmol/L (3.5-5.1); SALICYLATE < 1.0 mg/dL (2-20); SGOT/AST 23 U/L (17-59); SGPT/ALT 16 U/L (0-50); SODIUM 137 mmol/L (135-145); Total Protein 7.7 g/dL (6.3-8.2)
--- NOTE | 2024-06-23 14:35 | XRAY ---
Indication: Seizures. Multiple contiguous axial images obtained through the head without contrast. Comparison: January 29, 2024 Again age-appropriate global atrophy, moderate periventricular degenerative micro-ischemia bilaterally, small remote bifrontal lobe infarcts, and tiny remote infarct left mid jimenez radiata. No acute intracranial hemorrhage, abnormal extra-axial fluid collection, or mass effect. Fourth ventricle is midline without hydrocephalus. Bony calvarium intact. Left maxillary sinus now demonstrates mild mucosal thickening with fluid leveling. Remaining visualized paranasal sinuses and mastoid air cells are clear. Impression: Continued nonacute senile brain again with old multifocal old infarcts. New left maxillary sinus disease.
[2024-06-23] MEDS ORDERED: Klor Con ONE (14:58)
[2024-06-23] MEDS: Klor Con PO ONE (14:59)
[2024-06-23 15:21] VITALS: RESP 18
[2024-06-23 15:57] LABS: Appearance Clear (Clear); Bacteria None Seen /HPF (None Seen); Bilirubin Negative (Negative); Blood Negative (Negative); Epithelial Cells Few /HPF (None Seen); Glucose, Urine Negative (Negative); Hyaline Casts NONE SEEN /LPF (0-2); Ketones Negative (Negative); Leukocyte Esterase Negative (Negative); Nitrite Negative (Negative); Protein,Urine Dip Negative (Negative); RBC 0-2 /HPF (0-5); Specific Gravity <=1.005 (1.005-1.030); Urobilinogen 0.2 mg/dL (0.2); WBC 0-2 /HPF (0-5)
[2024-06-23 16:23] LABS: Amphetamine,Urine NEGATIVE (NEGATIVE); Barbiturate,Urine NEGATIVE (NEGATIVE); Benzodiazepine,Urine NEGATIVE (NEGATIVE); Cocaine,Urine NEGATIVE (NEGATIVE); Methadone,Urine NEGATIVE (NEGATIVE); Opiate,Urine NEGATIVE (NEGATIVE); PCP,Urine NEGATIVE (NEGATIVE); THC,Urine NEGATIVE (NEGATIVE)
[2024-06-23 17:37] VITALS: BP 99/64; PULSE 78; O2SAT 98
== END 2024-06-23 17:38 | disposition home or self-care (01) ==
LOC: ED 12:38
DX: R41.82 Altered mental status, unspecified (principal); J32.0 Chronic maxillary sinusitis; I95.9 Hypotension, unspecified; I10 Essential (primary) hypertension; Z79.01 Long term (current) use of anticoagulants; Z79.899 Other long term (current) drug therapy; Z59.819 Housing instability, housed unspecified; Z59.82 Transportation insecurity
CPT/HCPCS: 36415; 70450; 80053; 80143; 80179; 80307; 81001; 82077; 82805; 83735; 84146; 85025; 93005; 93041; 94760; 96360; 96361; 96374; 99285; 99291; J2405; A9270-GY

== ENCOUNTER 2024-08-13 13:32 | Emergency (ER) | payer MEDICARE ==
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
[2024-08-13 13:47] VITALS: BP 161/102; PULSE 90; RESP 18; TEMP 97.5; O2SAT 100
[2024-08-13] MEDS: Keppra 250 MG PO ONE (14:18)
== END 2024-08-13 14:26 | disposition home or self-care (01) ==
LOC: ED 13:32
DX: G40.909 Epilepsy, unspecified, not intractable, without status epilepticus (principal); T42.6X6A Underdosing of other antiepileptic and sedative-hypnotic drugs, initial encounter; Z91.148 Patient's other noncompliance with medication regimen for other reason; I10 Essential (primary) hypertension; Z79.01 Long term (current) use of anticoagulants; Z79.899 Other long term (current) drug therapy; Z59.819 Housing instability, housed unspecified; Z59.82 Transportation insecurity
CPT/HCPCS: 99281; 99283; A9270-GY

== ENCOUNTER 2024-09-11 09:46 | Emergency (ER) | payer MEDICARE ==
[2024-09-11 10:04] VITALS: TEMP 98.2
[2024-09-11 10:18] LABS: Absolute Neutrophil Ct (ANC) 2.73 x10^3/uL (1.78-5.38); Basophil (Absolute #) 0.06 x10^3/uL (0.01-0.08); Eosinophil (Absolute #) 0.06 x10^3/uL (0.04-0.54); Hematocrit 56.2 % (40.1-51.0); Hemoglobin 18.8 g/dL (13.7-17.5); IMMATURE GRAN # 0.01 x10^3u/L (0.001-0.031); IMMATURE GRAN % 0.2 % (0.001-0.429); Lymphocytes % 48.3 % (21.8-53.1); Mean Cell Volume 96.4 fL (79.0-92.2); Mean Corpuscular Hemoglobin 32.2 pg (25.7-32.2); Mean Corpuscular Hgb Concent. 33.5 g/dL (32.3-36.5); Mean Platelet Volume 9.4 fL (9.4-12.4); Monocyte (Absolute #) 0.35 x10^3/uL (0.30-0.82); Monocytes % 5.6 % (5.3-12.2); Neutrophil % 43.9 % (34.0-67.9); Platelet Count 244 x10^3/uL (163-337); Red Blood Count 5.83 x10^6/uL (4.63-6.08); Red Cell Distribution Width 15.9 % (11.6-14.4); White Blood Count 6.2 x10^3/uL (4.23-9.07)
[2024-09-11 10:36] VITALS: RESP 16
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
[2024-09-11 10:45] LABS: ALBUMIN 4.8 g/dL (3.5-5.0); ANION GAP 21.2 MEQ/L (5-15); BILIRUBIN,TOTAL 0.4 mg/dL (0.2-1.3); Creatinine 1 1.15 mg/dL (0.66-1.25); EST GLOMERULAR FILTRATION RATE 73.3 ML/MIN; MAGNESIUM 2.1 mg/dL (1.6-2.3); Potassium 3.6 mmol/L (3.5-5.1); Total Protein 7.9 g/dL (6.3-8.2)
[2024-09-11 12:00] VITALS: BP 137/94; PULSE 90
[2024-09-11 14:53] VITALS: O2SAT 96
== END 2024-09-11 15:26 | disposition home or self-care (01) ==
LOC: ED 09:46
DX: F10.129 Alcohol abuse with intoxication, unspecified (principal); Y90.8 Blood alcohol level of 240 mg/100 ml or more; I10 Essential (primary) hypertension; Z79.01 Long term (current) use of anticoagulants; Z79.899 Other long term (current) drug therapy; Z59.819 Housing instability, housed unspecified; Z59.82 Transportation insecurity
CPT/HCPCS: 36415; 80053; 82077; 83735; 85025; 93005; 99283; 99284

== ENCOUNTER 2024-09-11 23:39 | Emergency (ER) | payer MEDICARE ==
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
[2024-09-12 00:14] VITALS: TEMP 97.5
[2024-09-12 01:45] VITALS: BP 163/105; RESP 16
[2024-09-12 01:46] VITALS: PULSE 63; O2SAT 100
== END 2024-09-12 01:39 | disposition home or self-care (01) ==
LOC: ED 23:39
DX: F10.129 Alcohol abuse with intoxication, unspecified (principal); Y90.8 Blood alcohol level of 240 mg/100 ml or more; I10 Essential (primary) hypertension; Z79.01 Long term (current) use of anticoagulants; Z79.899 Other long term (current) drug therapy
CPT/HCPCS: 36415; 82077; 99283; 99284

== ENCOUNTER 2024-09-12 14:24 | Emergency (ER) | payer MEDICARE ==
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
[2024-09-12 14:39] VITALS: TEMP 85.1
[2024-09-12] MEDS ORDERED: Zofran 4 MG/2 ML VIAL ONE (14:41)
[2024-09-12] MEDS ORDERED: Sodium Chloride 0.9% 1000 ML 1,000 ML ONE (14:41)
[2024-09-12] MEDS ORDERED: Ativan 2 MG/1 ML VIAL ONE (14:41)
[2024-09-12] MEDS: Sodium Chloride 0.9% 1000 ML 1,000 ML IV STA (14:43)
[2024-09-12] MEDS: Zofran 4 MG/2 ML VIAL IV ONE (14:43)
[2024-09-12] MEDS: Ativan 2 MG/1 ML VIAL IV ONE (14:47)
[2024-09-12] MEDS: Vitamins For Infusion 10 ML INJECTION*** 10 ML, THIAMINE 200 MG/2 ML*** 100 MG, FOLNATE... IV SCH (15:25)
[2024-09-12 15:48] LABS: Absolute Neutrophil Ct (ANC) 12.65 x10^3/uL (1.78-5.38); BASOPHIL % 0.3 % (0.2-1.2); Basophil (Absolute #) 0.04 x10^3/uL (0.01-0.08); Eosinophil (Absolute #) 0 x10^3/uL (0.04-0.54); Hematocrit 44.7 % (40.1-51.0); Hemoglobin 15.2 g/dL (13.7-17.5); IMMATURE GRAN # 0.05 x10^3u/L (0.001-0.031); IMMATURE GRAN % 0.4 % (0.001-0.429); Lymphocytes % 3.6 % (21.8-53.1); Mean Cell Volume 93.9 fL (79.0-92.2); Mean Corpuscular Hemoglobin 31.9 pg (25.7-32.2); Mean Platelet Volume 9.4 fL (9.4-12.4); Monocyte (Absolute #) 0.64 x10^3/uL (0.30-0.82); Monocytes % 4.6 % (5.3-12.2); Neutrophil % 91.1 % (34.0-67.9); Platelet Count 164 x10^3/uL (163-337); Red Blood Count 4.76 x10^6/uL (4.63-6.08); Red Cell Distribution Width 14.6 % (11.6-14.4); White Blood Count 13.9 x10^3/uL (4.23-9.07)
[2024-09-12 15:57] LABS: ACETAMINOPHEN < 10 ug/ml (10-30); ALBUMIN 4.1 g/dL (3.5-5.0); ALKALINE PHOSPHATASE 130 U/L (38-126); AMYLASE 52 U/L (30-110); ANION GAP 17.8 MEQ/L (5-15); BLOOD UREA NITROGEN 12 mg/dL (9-20); CHLORIDE 96 mmol/L (98-107); Calcium 8.8 mg/dL (8.4-10.2); Carbon Dioxide 23 mmol/L (22-30); Creatinine 1 0.78 mg/dL (0.66-1.25); EST GLOMERULAR FILTRATION RATE 102.7 ML/MIN; ETHYL ALCOHOL < 10 mg/dL (0-10); Glucose 123 mg/dL (74-106); LIPASE 140 U/L (23-300); MAGNESIUM 1.3 mg/dL (1.6-2.3); Potassium 3.3 mmol/L (3.5-5.1); SALICYLATE < 1.0 mg/dL (2-20); SGOT/AST 57 U/L (17-59); SGPT/ALT 40 U/L (0-50); SODIUM 134 mmol/L (135-145); Total Protein 6.5 g/dL (6.3-8.2)
--- NOTE | 2024-09-12 16:28 | XRAY ---
CLINICAL HISTORY: Seizure COMPARISON: CT 06/23/2024. TECHNIQUE: Axial non-contrast CT scan of the brain was performed from the skull base to the high parietal region. One of the following dose reduction techniques were utilized for this exam: Automated exposure control, adjustment of the mA and/or kV according to patient size, use of iterative reconstruction. FINDINGS: Brain Parenchyma: Right frontal subcortical hypodense area of encephalomalacia. Bilateral frontoparietal subcortical and periventricular hypodense areas with no significant mass effect. Left basal ganglia chronic periventricular infarct. Normal attenuation of the cerebellum, and brainstem. No evidence of acute hemorrhage or mass effect. Ventricular System: Ventricles are normal in size and configuration. No evidence of hydrocephalus or ventricular enlargement. Subarachnoid Spaces: prominent sulci and cisterns. No evidence of subarachnoid hemorrhage or extra-axial fluid collections. Cerebellum and Brainstem: Normal size and signal. No masses, lesions, or areas of abnormal signal. Mastoid Air Cells: Clear mastoid air cells. No evidence of mastoiditis. IMPRESSION: 1. Marked motion artefact limiting image interpretation. 2. Redemonstrated right frontal area of encephalomalacia. 3. Microvascular chronic ischemic changes, unchanged. 4. Age appropriate involutional brain changes. Electronically Signed by: Contreras Holt MD. (09/12/2024 16:25:21 EDT)
[2024-09-12 16:32] LABS: Appearance Clear (Clear); Bacteria None Seen /HPF (None Seen); Bilirubin Negative (Negative); Blood Moderate (Negative); Epithelial Cells None Seen /HPF (None Seen); Glucose, Urine Negative (Negative); Hyaline Casts NONE SEEN /LPF (0-2); Ketones Negative (Negative); Leukocyte Esterase Negative (Negative); Nitrite Negative (Negative); Protein,Urine Dip 100 (Negative); Specific Gravity 1.015 (1.005-1.030); Urobilinogen 0.2 mg/dL (0.2)
[2024-09-12 16:35] LABS: Amphetamine,Urine NEGATIVE (NEGATIVE); Barbiturate,Urine NEGATIVE (NEGATIVE); Benzodiazepine,Urine NEGATIVE (NEGATIVE); Cocaine,Urine NEGATIVE (NEGATIVE); Methadone,Urine NEGATIVE (NEGATIVE); Opiate,Urine NEGATIVE (NEGATIVE); PCP,Urine NEGATIVE (NEGATIVE); THC,Urine NEGATIVE (NEGATIVE)
[2024-09-12] MEDS ORDERED: MAG-OX 400 ONE (16:48)
[2024-09-12] MEDS ORDERED: Klor Con ONE (16:48)
[2024-09-12] MEDS: MAG-OX 400 PO ONE (16:55)
[2024-09-12] MEDS: Klor Con PO ONE (16:55)
[2024-09-12] MEDS: KEPPRA PO ONE (16:56)
[2024-09-12 17:14] VITALS: BP 168/92; PULSE 102; RESP 18; O2SAT 95
[2024-09-12] MEDS ORDERED: CLONIDINE 0.1 MG TABLET ONE (17:23)
[2024-09-12] MEDS: CLONIDINE 0.1 MG TABLET PO ONE (17:24)
[2024-09-12 22:13] LABS: Slide Review 1 YES
== END 2024-09-12 17:42 | disposition home or self-care (01) ==
LOC: ED 14:24
DX: G40.909 Epilepsy, unspecified, not intractable, without status epilepticus (principal); T42.6X6A Underdosing of other antiepileptic and sedative-hypnotic drugs, initial encounter; T46.5X6A Underdosing of other antihypertensive drugs, initial encounter; Z91.148 Patient's other noncompliance with medication regimen for other reason; I10 Essential (primary) hypertension; Z79.01 Long term (current) use of anticoagulants; Z79.899 Other long term (current) drug therapy; Z59.10 Inadequate housing, unspecified; Z59.82 Transportation insecurity
CPT/HCPCS: 36415; 70450; 80053; 80143; 80179; 80307; 81001; 82077; 82140; 82150; 83690; 83735; 85025; 87086; 93005; 93041; 94760; 96374; 96375; 99285; J2060; J2405; A9270-GY

== ENCOUNTER 2025-02-13 21:44 | Emergency (ER) | payer MEDICARE ==
--- NOTE | 2025-02-13 21:58 | ERPHSYRPT ---
- History of Present Illness Time Seen by Provider: 02/13/25 21:47 Historian: patient Exam Limitations: no limitations Physician History: 64-year-old male presents to the emergency room with chest pain patient is a chronic alcoholic per EMS patient was hypertensive and tachycardic patient reports prior history of stent he reports he has been having pain intermittently for the past few days denies any nausea vomiting diarrhea denies any cough congestion denies any fevers denies any recent travel trauma denies any recent falls ambulatory baseline now in ED for further eval Timing/Duration: day(s) Activities at Onset: none Location: central Chest Pain Radiation: no radiation Severity of Pain-Max: mild Severity of Pain-Current: mild Associated Symptoms: No nausea, No hurts to breathe, No swelling/lump in chest, No syncope Aspirin Treatment Today: no aspirin today Allergies/Adverse Reactions: No Known Drug Allergies Allergy (Verified 02/13/25 23:07) Home Medications: Amlodipine Besylate 5 mg [Norvasc 5 mg] 5 mg PO DAILY 02/13/25 [History] Apixaban [Eliquis] 5 mg PO BID 02/13/25 [History] Aspirin EC 81 mg [Ecotrin 81 mg] 81 mg PO DAILY 02/13/25 [History] Clonidine HCl 0.1 mg [Clonidine 0.1 mg Tablet] 0.1 mg PO BID 02/13/25 [History] Escitalopram Oxalate [Lexapro] 20 mg PO DAILY 02/13/25 [History] Furosemide 20 mg [Lasix 20 mg] 20 mg PO DAILY 02/13/25 [History] Gabapentin 300 mg PO TID 02/13/25 [History] Gemfibrozil [Lopid] 600 mg PO BID 02/13/25 [History] Levetiracetam [Keppra] 750 mg PO BID 02/13/25 [History] Losartan Potassium 100 mg PO DAILY 02/13/25 [History] hydroCHLOROthiazide [Hydrochlorothiazide] 50 mg PO DAILY 02/13/25 [History] - Review of Systems Constitutional: No Fever, No Chills Eyes: No Symptoms Ears, Nose, & Throat: No Symptoms Respiratory: No Cough, No Dyspnea Cardiac: Chest Pain, No Edema, No Syncope Abdominal/Gastrointestinal: No Abdominal Pain, No Nausea, No Vomiting, No Diarrhea Genitourinary Symptoms: No Dysuria Musculoskeletal: No Back Pain, No Neck Pain Skin: No Rash Neurological: No Dizziness, No Focal Weakness, No Sensory Changes Psychological: No Symptoms Endocrine: No Symptoms All Other Systems: Reviewed and Negative - Nursing Vital Signs Nursing Vital Signs: Initial Vital Signs Temperature 97.9 F 02/13/25 21:45 Pulse Rate 106 H 02/13/25 21:45 Respiratory Rate 19 02/13/25 21:45 Blood Pressure 145/110 02/13/25 21:45 O2 Sat by Pulse Oximetry 97 02/13/25 21:45 Pain Scale Pain Intensity 4 - Physical Exam General Appearance: no apparent distress, alert Eye Exam: PERRL/EOMI, eyes nml inspection Ears, Nose, Throat Exam: normal ENT inspection, moist mucous membranes Neck Exam: normal inspection, non-tender, supple, full range of motion Respiratory Exam: normal breath sounds, lungs clear, No respiratory distress Cardiovascular Exam: regular rate/rhythm, normal heart sounds Gastrointestinal/Abdomen Exam: soft, No tenderness, No mass Back Exam: normal inspection, No CVA tenderness, No vertebral tenderness Extremity Exam: normal inspection, normal range of motion Neurologic Exam: alert, oriented x 3, cooperative, normal mood/affect, sensation nml, No motor deficits Skin Exam: normal color, warm, dry SpO2 Interpretation: normal SpO2: 97 O2 Delivery: Room Air - Course Nursing assessment & vital signs reviewed: Yes EKG Interpreted by Me: RATE (95), Sinus Rhythm, Non-specific ST Changes, Other (no stemi) - Radiology Exams Chest X-ray Interpretation: Interpreted by me, Pneumonia Ordered Tests: Active Orders 24 hr Category Date Time Status Manager Cable STAT Care 02/13/25 21:48 Completed EKG-ER Only STAT Care 02/13/25 21:47 Completed IV Insertion STAT Care 02/13/25 21:47 Completed Pulse Oximetry (ED) STAT Care 02/13/25 21:47 Completed CHEST 1 VIEW (PORTABLE) Stat Exams 02/13/25 21:47 Taken CBC W DIFF Stat Lab 02/13/25 21:47 Completed CK-Creatinine Phosphokinase Stat Lab 02/13/25 22:01 Completed CMP Stat Lab 02/13/25 22:01 Completed ETHYL ALCOHOL Stat Lab 02/13/25 22:01 Completed MAGNESIUM Stat Lab 02/13/25 22:01 Completed NT PRO BNPII Stat Lab 02/13/25 22:01 Completed PROTIME WITH INR Stat Lab 02/13/25 22:01 Completed PTT Stat Lab 02/13/25 22:01 Completed TROPONIN Q3H Lab 02/13/25 22:01 Completed TROPONIN Q3H Lab 02/14/25 01:15 Completed Medication Summary Discontinued Medications Generic Name Dose Route Start Last Admin Trade Name Daveq PRN Reason Stop Dose Admin Amoxicillin/Clavulanate Potassium 875 mg 02/14/25 00:24 02/14/25 00:47 Amox Tr/Potassium Clavulanate 875 Mg Tablet PO 02/14/25 00:25 875 mg STAT ONE Administration Amoxicillin/Clavulanate Potassium Confirm 02/14/25 00:46 Amox Tr/Potassium Clavulanate 875 Mg Tablet Administered 02/14/25 00:47 Dose 875 mg .ROUTE .Demo Lesson-Interviu Me ONE Lab/Rad Data: Laboratory Result Diagrams 02/13/25 21:47 02/13/25 22:01 Laboratory Results 02/14/25 02/13/25 02/13/25 Range/Units 01:15 22:01 22:01 WBC (4.23-9.07) x10^3/uL RBC (4.63-6.08) x10^6/uL Hgb (13.7-17.5) g/dL Hct (40.1-51.0) % MCV (79.0-92.2) fL MCH (25.7-32.2) pg MCHC (32.3-36.5) g/dL RDW (11.6-14.4) % Plt Count (163-337) x10^3/uL MPV (9.4-12.4) fL Gran % (34.0-67.9) % Immature Gran % (Auto) (0.001-0.429) % Nucleat RBC Rel Count (0.00-0.2) % Eos # (Auto) (0.04-0.54) x10^3/uL Immature Gran # (Auto) (0.001-0.031) x10^3u/L Absolute Lymphs (auto) (1.32-3.57) x10^3/uL Absolute Monos (auto) (0.30-0.82) x10^3/uL Absolute Nucleated RBC (0.00-0.012) x10^3u/L Lymphocytes % (21.8-53.1) % Monocytes % (5.3-12.2) % Eosinophils % (0.8-7.0) % Basophils % (0.2-1.2) % Absolute Granulocytes (1.78-5.38) x10^3/uL Basophils # (0.01-0.08) x10^3/uL PT 11.7 (9.4-12.5) SECONDS INR 1.08 (0.8-3.0) APTT 27.7 (25.1-36.5) SECONDS Sodium (135-145) mmol/L Potassium (3.5-5.1) mmol/L Chloride (98-107) mmol/L Carbon Dioxide (22-30) mmol/L Anion Gap (5-15) MEQ/L BUN (9-20) mg/dL Creatinine (0.66-1.25) mg/dL Estimated GFR ML/MIN Glucose (74-106) mg/dL Calcium (8.4-10.2) mg/dL Magnesium (1.6-2.3) mg/dL Total Bilirubin (0.2-1.3) mg/dL AST (17-59) U/L ALT (0-50) U/L Alkaline Phosphatase (38-126) U/L Creatine Kinase (55-170) U/L Troponin I < 0.012 < 0.012 (0.000-0.033) ng/mL NT-Pro-B Natriuret Pep < 20.0 (<300) pg/mL Serum Total Protein (6.3-8.2) g/dL Albumin (3.5-5.0) g/dL Ethyl Alcohol (0-10) mg/dL 02/13/25 02/13/25 Range/Units 22:01 21:47 WBC 8.2 (4.23-9.07) x10^3/uL RBC 5.26 (4.63-6.08) x10^6/uL Hgb 17.8 H (13.7-17.5) g/dL Hct 52.6 H (40.1-51.0) % MCV 100.0 H (79.0-92.2) fL MCH 33.8 H (25.7-32.2) pg MCHC 33.8 (32.3-36.5) g/dL RDW 15.9 H (11.6-14.4) % Plt Count 243 (163-337) x10^3/uL MPV 9.4 (9.4-12.4) fL Gran % 64.9 (34.0-67.9) % Immature Gran % (Auto) 0.4 (0.001-0.429) % Nucleat RBC Rel Count 0.0 (0.00-0.2) % Eos # (Auto) 0.02 L (0.04-0.54) x10^3/uL Immature Gran # (Auto) 0.03 (0.001-0.031) x10^3u/L Absolute Lymphs (auto) 2.30 (1.32-3.57) x10^3/uL Absolute Monos (auto) 0.49 (0.30-0.82) x10^3/uL Absolute Nucleated RBC 0.00 (0.00-0.012) x10^3u/L Lymphocytes % 28.0 (21.8-53.1) % Monocytes % 6.0 (5.3-12.2) % Eosinophils % 0.2 L (0.8-7.0) % Basophils % 0.5 (0.2-1.2) % Absolute Granulocytes 5.32 (1.78-5.38) x10^3/uL Basophils # 0.04 (0.01-0.08) x10^3/uL PT (9.4-12.5) SECONDS INR (0.8-3.0) APTT (25.1-36.5) SECONDS Sodium 143 (135-145) mmol/L Potassium 3.4 L (3.5-5.1) mmol/L Chloride 108 H (98-107) mmol/L Carbon Dioxide 21 L (22-30) mmol/L Anion Gap 18.0 H (5-15) MEQ/L BUN 8 L (9-20) mg/dL Creatinine 0.97 (0.66-1.25) mg/dL Estimated GFR 89.9 ML/MIN Glucose 119 H (74-106) mg/dL Calcium 8.8 (8.4-10.2) mg/dL Magnesium 1.7 (1.6-2.3) mg/dL Total Bilirubin 0.50 (0.2-1.3) mg/dL AST 25 (17-59) U/L ALT 13 (0-50) U/L Alkaline Phosphatase 144 H (38-126) U/L Creatine Kinase 59 (55-170) U/L Troponin I (0.000-0.033) ng/mL NT-Pro-B Natriuret Pep (<300) pg/mL Serum Total Protein 7.5 (6.3-8.2) g/dL Albumin 4.4 (3.5-5.0) g/dL Ethyl Alcohol 125 H (0-10) mg/dL - Progress Progress Note: patient was given augmentin for concern for pna on xray, trop pending x2. initial tni is wnl, patient does drink daily etoh level 125 today. will send home with a rx for abx and recommend repeat xray in a week to ensure resolution. 02/14/25 01:21 - Departure Departure Disposition: Home Clinical Impression: PNA (pneumonia) Qualifiers: Pneumonia type: due to unspecified organism Laterality: unspecified laterality Lung location: unspecified part of lung Qualified Code(s): J18.9 - Pneumonia, unspecified organism Chest pain Qualifiers: Chest pain type: unspecified Qualified Code(s): R07.9 - Chest pain, unspecified Condition: Stable Critical Care Time: No Referrals: DOCTOR,NO FAMILY [Primary Care Provider, UNKNOWN] - Follow up/PCP as directed Instructions: Pneumonia, Adult (DC), Chest Pain (DC) Prescriptions: Amox Tr/Potass Clav. 875 mg [Augmentin 875-125 Tablet] 875 mg PO BID 10 Days #20 tablet
[2025-02-13 22:00] LABS: BASOPHIL % 0.5 % (0.2-1.2); Basophil (Absolute #) 0.04 x10^3/uL (0.01-0.08); Eosinophil (Absolute #) 0.02 x10^3/uL (0.04-0.54); Hematocrit 52.6 % (40.1-51.0); Hemoglobin 17.8 g/dL (13.7-17.5); IMMATURE GRAN # 0.03 x10^3u/L (0.001-0.031); IMMATURE GRAN % 0.4 % (0.001-0.429); Lymphocyte (Absolute #) 2.30 x10^3/uL (1.32-3.57); Mean Corpuscular Hemoglobin 33.8 pg (25.7-32.2); Mean Corpuscular Hgb Concent. 33.8 g/dL (32.3-36.5); Monocyte (Absolute #) 0.49 x10^3/uL (0.30-0.82); NUCLEATED RBC # 0.00 x10^3u/L (0.00-0.012); NUCLEATED RBC % 0.0 % (0.00-0.2); Platelet Count 243 x10^3/uL (163-337); Red Blood Count 5.26 x10^6/uL (4.63-6.08); White Blood Count 8.2 x10^3/uL (4.23-9.07)
[2025-02-13 22:10] VITALS: TEMP 97.9
[2025-02-13 22:14] LABS: INR 1.08 (0.8-3.0); PROTIME 11.7 SECONDS (9.4-12.5); PTT 27.7 SECONDS (25.1-36.5)
[2025-02-13 22:18] LABS: CK-Creatinine Phosphokinase 59.0 U/L (55-170); Calcium 8.8 mg/dL (8.4-10.2); Carbon Dioxide 21.0 mmol/L (22-30); Creatinine 1 0.97 mg/dL (0.66-1.25); EST GLOMERULAR FILTRATION RATE 89.9 ML/MIN; ETHYL ALCOHOL 125.0 mg/dL (0-10); Glucose 119.0 mg/dL (74-106); Potassium 3.4 mmol/L (3.5-5.1); SGOT/AST 25.0 U/L (17-59); SGPT/ALT 13.0 U/L (0-50); Total Protein 7.5 g/dL (6.3-8.2)
[2025-02-13 22:29] LABS: NT PRO BNPII < 20.0 pg/mL (<300); TROPONIN < 0.012 ng/mL (0.000-0.033)
[2025-02-14 00:46] VITALS: O2SAT 97
[2025-02-14] MEDS ORDERED: Augmentin 875-125 Tablet ONE (00:46)
[2025-02-14] MEDS: Augmentin 875-125 Tablet PO ONE (00:47)
[2025-02-14 01:15] VITALS: PULSE 91
[2025-02-14 01:43] VITALS: BP 173/112; RESP 17
--- NOTE | 2025-02-14 07:54 | XRAY ---
Indication: Chest pain. Comparison: None Portable chest demonstrates mild hazy bibasilar infiltrates versus atelectasis. Incidental left upper lobe calcified granuloma. Remaining heart and lungs unremarkable. Bony thorax intact with osteopenia and mild degenerative changes.
== END 2025-02-14 01:38 | disposition home or self-care (01) ==
LOC: EDBD 21:44 → ED 21:44 → MERGE 21:44 → ED 02-14 01:38
DX: J18.9 Pneumonia, unspecified organism (principal); R07.9 Chest pain, unspecified; Z79.01 Long term (current) use of anticoagulants; Z79.899 Other long term (current) drug therapy